=== PATIENT | female | born 1960 | race Caucasian/White ===

== ENCOUNTER → 2016-07-14 14:18 | Outpatient (CLI) | payer MEDICAID ==
[2016-04-20 17:52] VITALS: BMI 40.0
[~2016-07-14 14:18] MED LIST: ALDACTONE50 MG PO; ANORO ELLIPTA1 EACH INH; ATIVAN0.5 MG PO; BAYER CHEWABLE81 MG PO; CELEXA40 MG PO; DEMADEX20 MG PO; ESTRACE2 MG PO; FUROSEMIDE40 MG PO; ISOSORBIDE MONO30 M1 PO; K-DUR20 MEQ PO; LEVAQUIN500 MG PO; METOPROLOL TART50 MG PO; NIFEDIPINE ER60 MG PO; OXYCODONE HCL5 MG PO; PLAVIX75 MG PO; PRILOSEC20 MG PO; REXULTI1 MG PO; SEROQUEL200 MG PO; STERAPRED DS 1010 MG PO; SYMBICORT 16010.2 GM INH; TRAZODONE HCL50 MG PO; TYLENOL #4 W/CO1 TAB PO; VENTOLIN HFA18 GM INH; ZANAFLEX2 M1 PO
[2016-07-14 14:56] LABS: BASOPHILS 0.3 % (0.0-2.0); EOSINOPHILS 2.9 % (0-7); HEMATOCRIT 44.8 % (36.0-48.0); HEMOGLOBIN 14.5 g/dL (12-16); IMMATURE GRANULOCYTES 0.5 % (0-5); LYMPHOCYTES 31.2 % (15-50); MCHC 32.4 g/dL (31.0-37.0); MCV 83.4 fL (80.0-100.0); MEAN PLATELET VOLUME 9.7 fL (7.4-10.4); MONOCYTES 7.8 % (2-11); NEUTROPHILS 57.3 % (40-80); PLATELET COUNT 212 10x3/uL (130-400); RBC 5.37 10x6/uL (4.00-5.40); RDW 14.6 % (11.5-14.5); WBC 10.7 10x3/uL (4.8-10.8)
[2016-07-14 15:35] LABS: ALBUMIN 3.7 g/dL (3.4-5.0); BILIRUBIN - DIRECT 0.16 mg/dL (0.00-0.30); BILIRUBIN - INDIRECT 0.28 mg/dL (0.00-1.00); BILIRUBIN - TOTAL 0.44 mg/dL (0.2-1.3); CALCIUM 9.3 mg/dL (8.5-10.1); CARBON DIOXIDE 27.1 mmol/L (21.0-32.0); CREATININE - SERUM 0.9 mg/dL (0.6-1.3); POTASSIUM - SERUM 4.1 mmol/L (3.5-5.1); PROTEIN - SERUM 6.8 g/dL (6.4-8.2)
== END | disposition home or self-care (01) ==
LOC: D.LAB 14:18 → D.CT 15:00
PROVIDERS: Surgery
DX: R92.8 Other abnormal and inconclusive findings on diagnostic imaging of breast (principal)

== ENCOUNTER 2016-07-16 05:19 | Day surgery (SDC) | payer MEDICAID ==
[2016-07-15 10:47] LABS: INR 1.01 (0.85-1.17); PROTIME 13.1 SECONDS (11.6-15.0)
[2016-07-15 10:48] LABS: APTT 30.5 SECONDS (22.8-39.4)
[2016-07-15 11:18] LABS: APPEARANCE HAZY (CLEAR); BACTERIA MODERATE /hpf (NONE SEEN); BILIRUBIN NEGATIVE (NEGATIVE); COLOR YELLOW (YELLOW); GLUCOSE NEGATIVE (NEGATIVE); KETONE NEGATIVE (NEGATIVE); LEUKOCYTE ESTERASE TRACE (NEGATIVE); MUCUS <1+ /lpf (NONE SEEN); NITRITE NEGATIVE (NEGATIVE); PROTEIN NEGATIVE (NEGATIVE); WHITE CELLS - URINE 0-5 /hpf (0-5)
[~2016-07-16] VITALS: Ht 157.5 cm; Wt 104.3 kg
[~2016-07-16 05:19] MED LIST changes: -TRAZODONE HCL50 MG PO
[2016-07-16] MEDS ORDERED: TRAZODONE HCL50 MG PO (06:57)
[2016-07-16 07:29] VITALS: BP 154/88; Ht 157.5 cm; Wt 104.3 kg
[2016-07-16] MEDS ORDERED: OXYCODONE HCL5 MG PO (15:03)
--- NOTE | 2016-07-16 16:22 | OP ---
PATIENT NAME: ADONIS YEE MEDICAL RECORD: [id number] :60 LOCATION:D.[facility] ADMISSION DATE: SURGEON: YARELI GARCIA MD DATE OF OPERATION: 07/16/2016 SURGEON: Yareli Garcia MD PREOPERATIVE DIAGNOSIS: A 4 x 3 cm right breast mass. POSTOPERATIVE DIAGNOSIS: A 4 x 3 cm right breast mass. PROCEDURE PERFORMED: Right breast lumpectomy with sentinel lymph node biopsy. ANESTHESIA: General. COMPLICATIONS: None. SPECIMENS: 1. ____ cm right breast mass. 2. Right axillary sentinel lymph node times 2. ESTIMATED BLOOD LOSS: 50 cc. OPERATIVE COURSE: After consent was obtained, the patient was taken to the operating room and placed in the supine position on the operating table. Next, general anesthesia was given via endotracheal intubation after a timeout was taken to confirm the correct patient and procedure. The right chest and axilla were prepped and draped in typical sterile fashion. There is a large, hard, fixed, palpable breast mass in the right breast, Lymphazurin blue dye was administered subareolar. Local anesthetic was injected in the right upper outer quadrant of the breast. An elliptical incision was made approximately 5 cm in length, 0.5 cm in width. The mass was easily palpated. It was held firmly in place. Dissection continued with a combination of electrocautery and sharp scissor dissection. The mass was circumferentially dissected. The specimen was removed from the breast, it was marked for orientation. The skin joanie superior, the long stitch lateral and short stitch medial. The specimen was sent for permanent pathology. The wound was copiously irrigated and suctioned. Careful attention was paid to hemostasis, which was obtained with electrocautery. When the wound bed was clean and dry, it was closed in 3 layers. The deep subcutaneous layer was closed with 2-0 Vicryl, superficial subcutaneous layer 3-0 Vicryl, and skin with 4-0 Monocryl, Mastisol and Steri-Strips. Next, the axillary borders were identified. Local anesthetic was injected into an axillary crease. Incision was made with 15 blade scalpel. Dissection continued with sharp dissection. The Jaden counter was used. The patient have received preoperative lymphoscintigraphy. The hot node was identified. It was also noted to be bright blue with dye. It registered 1300 on the [place] counter. It was circumferentially dissected. The nodes were sent for permanent pathology. The wound was irrigated and suctioned. Hemostasis was obtained with electrocautery. The wound was closed again in 3 layers, deep layer with 2-0 Vicryl, superficial layer with 3-0 Vicryl. The skin was closed with 4-0 Stratafix, Mastisol and Steri-Strips. At the end of the case, all needle and instrument counts were correct. No complications occurred. Pressure dressing was applied with an Dewey wrap. At the end of the case, all needle counts were correct. The patient was transported to the PACU in stable condition. OPERATIVE REPORT [id number] ADONIS YEE TRANSINT:[id number] Voice Confirmation ID: [id number] DOCUMENT ID: [id number] YARELI GARCIA MD at 1622 CC: [id number] DICTATION DATE: 07/16/16 1501 SEPTIC TANK INSTALLER: 07/16/16 1527 [id number] [place] [address]
--- NOTE | 2016-07-16 17:05 | NUR ---
DISCHARGE INSTRUCTIONS AND RX GIVEN, VOICED UNDERSTANDING. DISCHARGED HOME VIA WC.
== END 2016-07-16 17:05 | disposition home or self-care (01) ==
LOC: D.OPS 05:19 → D.NM 07:00 → D.OPS 08:00 → D.NM 08:00 → D.PAN 08:00 → D.OPS 17:05
PROVIDERS: Anesthesiology
DX: N64.1 Fat necrosis of breast (principal); N60.91 Unspecified benign mammary dysplasia of right breast; N60.31 Fibrosclerosis of right breast

== ENCOUNTER 2016-07-16 22:25 | Emergency (ER) | payer MEDICAID ==
[2016-07-16 07:29] VITALS: BMI 18.1
[~2016-07-16 22:25] MED LIST changes: +TRAZODONE HCL50 MG PO
[2016-07-17 00:51] LABS: HEMATOCRIT 39.5 % (36.0-48.0); LYMPHOCYTES 11.7 % (15-50); MCH 26.8 pg (26.0-34.0); MCHC 32.9 g/dL (31.0-37.0); MCV 81.4 fL (80.0-100.0); MEAN PLATELET VOLUME 9.4 fL (7.4-10.4); NEUTROPHILS 83.8 % (40-80); PLATELET COUNT 240 10x3/uL (130-400); RBC 4.85 10x6/uL (4.00-5.40); RDW 14.5 % (11.5-14.5); WBC 11.7 10x3/uL (4.8-10.8)
[2016-07-17 01:13] LABS: ALBUMIN 3.2 g/dL (3.4-5.0); ANION GAP 14.4 mmol/L (8-16); BILIRUBIN - TOTAL 0.33 mg/dL (0.2-1.3); CALCIUM 8.8 mg/dL (8.5-10.1); CARBON DIOXIDE 25.7 mmol/L (21.0-32.0); POTASSIUM - SERUM 4.1 mmol/L (3.5-5.1); PROTEIN - SERUM 6.5 g/dL (6.4-8.2); TROPONIN-I 0.018 ng/mL (0.000-0.060)
== END 2016-07-17 01:33 | disposition home or self-care (01) ==
LOC: D.ER 22:25
PROVIDERS: Family Medicine
DX: I10 Essential (primary) hypertension (principal); I50.9 Heart failure, unspecified; M79.7 Fibromyalgia; J44.9 Chronic obstructive pulmonary disease, unspecified; M32.9 Systemic lupus erythematosus, unspecified

== ENCOUNTER → 2016-12-10 12:03 | Outpatient (CLI) | payer MEDICAID ==
[~2016-12-10] VITALS: Ht 157.5 cm; Wt 109.1 kg
--- NOTE | ~2016-12-10 | HEMODYNAMI ---
PATIENT:ADONIS YEE MEDICAL RECORD: [id number] : 60 LOCATION:[facility] ADMISSION DATE: 12/10/16 Generatedon:12/10/201616:41 Patient name: ADONIS YEE Patient #: [id number] : 1960 Date of study: 12/10/2016 Page: Of Hemodynamic Procedure Report Patient Data Patient Demographics Procedure consent was obtained First Name: ADONIS Gender: Female Last Name: JOSELITO : 1960 Middle Initial: CORINA Age: 56 year(s) Patient #: [id number] Race: SSN: [id number] Additional ID: [id number] Contact details [address]: [address] [place] [address] State: [place] City: [place] Zip code: [address] Past Medical History Allergies Allergen Reaction Date Comments Reported Other allergy 11/22/2015 Red Dye in [place] Admission Admission Data Admission Date: 12/10/2016 Admission Time: 12:03 Arrival Date: 12/10/2016 Arrival Time: 14:15 Admit Source: Other Insurance Payor: Medicaid Height (in.): 62 BSA: 2.07 (m2) Height (cm.): 157.48 BMI: 43.9 (kg/m2) Weight (lbs.): 240 Weight (kg.): 108.86 Lab Results Lab Result Date: 12/10/2016 Lab Result Time: 0:00 Biochemistry Name Units Result Min Max BUN mg/dl 15 --(--*-)-- 7 18 Creatinine mg/dl 1.1 --(--*-)-- 0.6 1.3 CBC Name Units Result Min Max Hemoglobin g/dl 16.4 --(--*-)-- 13.5 17.5 Procedure Procedure Types Cath Procedure Diagnostic Procedure LHC LHC w/Coronaries Miscellaneous Procedures Moderate Sedation up to 30 minutes Procedure Description Procedure Date Procedure Date: 12/10/2016 Procedure Start Time: 16:27 Procedure End Time: 16:38 Procedure Staff Name Function Dalton Beck MD Performing Physician Lilibeth Slade RT Scrub Brissa Salmeron RN Nurse Heidi Oseguera RT Monitor Indication Angina Procedure Data Cath Procedure Fluoroscopy Diagnostic fluoroscopy Total fluoroscopy Time: 3.4 time: 3.4 min min Diagnostic fluoroscopy Total fluoroscopy dose: 719 dose: 719 mGy mGy Contrast Material Contrast Material Type Amount (ml) Isovue 300 57 Entry Location Entry Primary Successful Side Size Upsize Upsize Entry Closure Succes sful Closure Location (Fr) 1 (Fr) 2 (Fr) Remarks Device Remarks Femoral Right 5 Fr Exoseal artery Estimated blood loss: 5 ml Diagnostic catheters Device Type Used For End Catheter Placement Cordis 5Fr JL 4.0 Left Coronary Catheter (MP) Angiography Cordis 5Fr 3DRC Catheter Right Coronary (MP) Angiography Cordis 5Fr Pigtail LV Angiography Catheter (MP) Procedure Complications No complications Procedure Medications Medication Administration Route Dosage Oxygen NC 4 l/min Lidocaine 2% added to field 20 Heparin Flush Bag added to field 2 bags (1000units/500ml NS) 0.9% NaCl I.V. 100 ml/hr Versed I.V. 2 mg Fentanyl I.V. 100 mcg Versed I.V. 1 mg Fentanyl I.V. 50 mcg Versed I.V. 1 mg Fentanyl I.V. 50 mcg Hemodynamics Rest BSA: 2.07 (m2) HGB: 16.4 (g/dl) O2 Consumption: Estimated: 188.48 (ml/min) O2 Co nsumption indexed: Estimated:91.05 (ml/min/m) Heart Rate: 57 (bpm) Pressure Samples Time Site Value (mmHg) Purpose Heart Use Rate(bpm) 16:35 LV 147/-3,3 Snapshot 69 16:36 AO 155/80(112) Pullback 70 16:36 LV 126/13,10 Pullback 70 Gradients Valve Time Site 1 Site 2 Mean SEP/DFP Peak To Heart Use (mmHg) (sec/min) Peak Rate (mmHg) (bpm) Aortic 16:36 LV AO 0 9 0 70 126/13,10 155/80(112) Calculations Valve P-P Mean Valve Index Valve Source Name Gradient Area Flow (cm2) Aortic 0 0 0 0 Snapshots Pre Cath Intra NCS Post Cath Vital Signs Time Heart Resp SPO2 NIBP (mmHg) Rhythm Pain Sedation Rate (ipm) (%) Status Level (bpm) 16:18:40 54 17 93 163/93(119) NSR 0 (11) 10(A) , No pain 16:23:05 60 15 92 151/87(113) NSR 0 (11) 10(A) , No pain 16:27:21 63 19 93 139/87(126) NSR 0 (11) 10(A) , No pain 16:31:37 64 17 93 145/94(129) NSR 0 (11) 10(A) , No pain 16:35:59 69 17 93 145/92(114) NSR 0 (11) 10(A) , No pain Medications Time Medication Route Dose Verified Delivered Reason Notes Effe ctiveness by by 16:18:24 Oxygen NC 4 Dalton Buffie used for l/min [facility] Salmeron company driver 16:18:32 Lidocaine 2% added 20ml Dalton Dalton for local to vial [facility] anesthetic field MD KAUFFMAN 16:18:38 Heparin Flush added 2 Dalton Dalton used for Bag to bags [facility] procedure (1000units/500ml field MD KAUFFMAN NS) 16:18:50 0.9% NaCl I.V. 100 Dalton Buffie Per ml/hr [facility] Manolo Salmeron RN physician 16:22:34 Versed I.V. 2 mg Dalton Buffie for [facility] Manolo Salmeron RN sedation 16:22:40 Fentanyl I.V. 100 Dalton Buff[address] for mcg [facility] Manolo Salmeron RN sedation 16:26:12 Versed I.V. 1 mg Dalton Buffie for [facility] Manolo Salmeron RN sedation 16:26:16 Fentanyl I.V. 50 Dalton Marieie for mcg [facility] Manolo Salmeron RN sedation 16:29:56 Versed I.V. 1 mg Dalton Cynthiaie for [facility] Manolo Salmeron RN sedation 16:29:59 Fentanyl I.V. 50 Dalton Buff[address] for mcg [facility] Manolo Salmeron RN sedation Procedure Log Time Note 16:06:04 Informed consent obtained and on chart 16:06:11 Diagnostic Cath Status : Elective 16:07:00 Indication : Angina 16:07:52 Brissa Salmeron RN sent for patient. Start room use. 16:07:53 Time tracking: Regular hours 16:07:57 Plan of Care:Hemodynamics will remain stable., Cardiac rhythm will remain stable., Comfort level will be maintained., Respiratory function will remain adequate., Patient/ family verbilizes understanding of procedure., Procedure tolerated without complication., Recovers from procedure without complications.. 16:10:01 Patient received from Pre/Post Procedure Room to CCL 2 Alert and oriented. Tansferred to table in Supine position. 16:10:02 Warm blankets applied, and kallie hugger turned on for patient comfort. 16:10:04 Correct patient and procedure confirmed by team. 16:10:22 H&P Date Dictated: 12/08/2016 Within 30 days and on chart., H&P Addendum completed by physician on day of procedure. (MUST COMPLETE FOR ALL OUTPATIENTS). 16:10:24 Pre-procedure instructions explained to patient. 16:10:31 Family in waiting room. 16:10:32 Patient NPO since Midnight. 16:10:36 Is the patient allergic to Iodine/contrast media? No. 16:12:15 ECG and BP/O2 sat monitors applied to patient. 16:17:19 Vital chart was started 16:17:20 Baseline sample Acquired. 16:17:26 Rhythm: sinus rhythm 16:17:27 Full Disclosure recording started 16:17:28 Pre-op teaching completed and patient verbalized understanding. 16:18:11 Was the patient premedicated? No 16:18:14 Is patient on blood thinner?Yes 16:18:16 ACC The patient was administered the following blood thiners within the last 24 hours: ACCPlavix 16:18:19 Patient diabetic? No. 16:18:22 Previous problem with sedation/anesthesia? No ? 16:18:24 Oxygen 4 l/min NC was administered by Brissa Salmeron RN; used for procedure; 16:18:25 Snore? No 16:18:26 Sleep apnea? No 16:18:27 Deviated septum? No 16:18:28 Opens mouth fully? Yes 16:18:29 Sticks out tongue? Yes 16:18:32 Lidocaine 2% 20ml vial added to field was administered by Dalton Beck MD; for local anesthetic; 16:18:33 Airway obstruction? Yes copd 16:18:38 Heparin Flush Bag (1000units/500ml NS) 2 bags added to field was administered by Dalton Beck MD; used for procedure; 16:18:38 Dentures? Yes in tight 16:18:41 Pre procedure: right dorsailis pedis pulse 1+ Palpable, but thready & weak; easily obliterated 16:18:44 Patient pain scale 0/10 ?. 16:18:50 0.9% NaCl 100 ml/hr I.V. was administered by Brissa Salmeron RN; Per physician; 16:18:57 IV patent on arrival in left forearm with 0.9% NaCl at [facility]. 16:21:18 Lab Result : BUN 15 mg/dl 16:21:18 Lab Result : Creatinine 1.1 mg/dl 16:21:18 Lab Result : Hemoglobin 16.4 g/dl 16:21:41 Lab results completed and on chart. 16:21:44 Right groin area was prepped with chlora-prep and draped in sterile fashion 16:21:45 Alarms reviewed by R. N. 16:21:46 Sharps counted by scrub and verified by R.N. 16:21:47 --------ALL STOP TIME OUT------ 16:21:48 Final Timeout: patient, procedure, and site verified with staff and physician. All members of the team are in agreement. 16:21:50 Right groin site verified by team. 16:21:53 Physical assessment completed. ASA score P 2 - A patient with mild systemic disease as per Dalton Beck MD. 16:21:56 Sedation plan: IV Moderate Sedation Versed, Fentanyl 16:22:02 Use device set Femoral Dx 16:22:03 Acist Syringe opened to sterile field. 16:22:04 Bag Decanter opened to sterile field. 16:22:04 Medline Cath Pack opened to sterile field. 16:22:05 Terumo 5Fr [place] Sheath opened to sterile field. 16:22:05 St [place] Francisco 260cm J .035 wire opened to sterile field. 16:22:06 Acist Hand Control opened to sterile field. 16:22:07 Acist Manifold opened to sterile field. 16:22:07 Diagnostic Infinity 5Fr Multipack catheter opened to sterile field. 16:22:08 Tegaderm 4 x 4 opened to sterile field. 16:22:34 Versed 2 mg I.V. was administered by Buffie Salmeron RN; for sedation; 16:22:40 Fentanyl 100 mcg I.V. was administered by Brissa Salmeron RN; for sedation; 16:26:12 Versed 1 mg I.V. was administered by Brissa Salmeron RN; for sedation; 16:26:16 Fentanyl 50 mcg I.V. was administered by Brissa Salmeron RN; for sedation; 16:27:06 Procedure started. 16:27:32 Local anesthetic to right femoral artery with Lidocaine 2% by Dalton Beck MD.INITIAL ACCESS ONLY 16:27:42 A 5 Fr sheath was inserted into the Right Femoral artery 16:27:50 A Cordis 5Fr JL 4.0 Catheter (MP) was advanced over the wire and used for Left Coronary Angiography. 16:29:37 LCA angiography performed. 16:29:41 Injector settings: Ml/sec: 3, Volume: 6, 16:29:56 Versed 1 mg I.V. was administered by Brissa Salmeron RN; for sedation; 16:29:59 Fentanyl 50 mcg I.V. was administered by Brissa Salmeron RN; for sedation; 16:30:54 Catheter removed. 16:31:00 A Cordis 5Fr 3DRC Catheter (MP) was advanced over the wire and used for Right Coronary Angiography. 16:32:24 RCA angiography performed. 16:32:28 Injector settings: Ml/sec: 3, Volume: 6, 16:32:53 Terumo ANGLE 260cm glide wire opened to sterile field. 16:33:19 Catheter removed. 16:33:24 A Cordis 5Fr Pigtail Catheter (MP) was advanced over the wire and used for LV Angiography. 16:35:35 LV hemodynamics recorded. 16:35:36 LV gram done using CONNOLLY 16:35:39 Injector settings: Ml/sec: 5, Volume: 15, 16:36:02 EF : 55 % 16:36:04 Catheter removed. 16:36:26 Cordis 5Fr Exoseal opened to sterile field. 16:36:38 Sheath removed intact; hemostasis achieved with Exoseal to the Right Femoral artery. 16:36:41 Procedure ended.(Physican Out) 16:37:37 Fluoroscopy time 03.40 minutes. 16:37:50 Fluoroscopy dose: 719 mGy 16:37:50 Flurop Dose total: 719 16:37:55 Contrast amount:Isovue 300 57ml. 16:37:57 Sharps counted by scrub and verified by R.N. 16:37:58 Insertion/operative site no bleeding no hematoma. 16:38:01 Post-op/insertion site Right Femoral artery dressed using a 4 x 4 and Tegaderm. 16:38:03 Post right femoral artery:stable 16:38:05 Post Procedure Pulses reassessed and unchanged 16:38:07 Post procedure rhythm: unchanged. 16:38:10 Estimated blood loss: 5 ml 16:38:12 Post procedure instruction explained to patient.Patient verbalizes understanding. 16:38:13 Patient needs reinforcement of post procedure teaching. 16:38:26 Procedure type changed to Cath procedure, Diagnostic procedure, LHC, LHC w/Coronaries, Miscellaneous Procedures, Moderate Sedation up to 30 minutes 16:38:28 Procedure and supply charges have been captured, reviewed, submitted and are correct. 16:38:31 Procedure Complication : No complications 16:38:33 Vital chart was stopped 16:38:34 See physician's report for complete and final results. 16:38:36 Report given to Pre/Post Procedure Room. 16:38:39 Patient transfered to Pre/Post Procedure Room with Stretcher. 16:38:41 Procedure ended. 16:38:41 Full Disclosure recording stopped 16:38:48 End room use (Document Last) 16:39:20 Admit Source: Other 16:39:25 Arrival Date: 12/10/2016 2:15:00 PM 16:39:31 Insurance Payor : Medicaid 16:39:37 Patient Height : 157.48 cm 16:39:43 Patient Weight : 108.86 kg Device Usage Item Name Manufacture Quantity Catalog Hospital Part Current Minimal Lo t# / Number Charge Number Stock Stock Serial# Code Acist Acist 1 40341 118841 890930 488686 20 Syringe Medical Systems Inc Bag Microtek 1 2002S 337328 18780 276713 5 Dec[employer] Medical Inc. Medline Cardinal 1 [id number] 03268 988878 5 Cath Pack AD[employer] Terumo 5Fr Terumo 1 [id number] 487484 472187 051519 [address] Juan Francisco 1 055707 341376 244630 693371 30 260cm J .035 wire Acist Hand Acist 1 91757 889221 287024 944556 5 Control Medical Systems Inc Acist Acist 1 42141 634921 276215 171755 5 Manifold Medical Systems Inc Diagnostic Cardinal 1 PH1676 510004 94559 005806 30 Infinity Health 5Fr Multipack catheter Tegaderm 4 3M 1 1626W 005720 507880 840015 5 x 4 Cordis 5Fr Cardinal 1 336968 5 JL 4.0 Health Catheter (MP) Cordis 5Fr Cardinal 1 151394 5 3DRC Health Catheter (MP) Terumo Terumo 1 [id number] 802764 645182 472856 5 ANGLE 260cm glide wire Cordis 5Fr Cardinal 1 809180 5 Pigtail Health Catheter (MP) Cordis 5Fr Cardinal 1 EX500 972796 784928 766521 10 Lendstar Signature Audit [place] Stage Time Signature Unsigned Intra-Procedure 12/10/2016 Heidi Oseguera 4:41:18 PM RT(R) Signatures Monitor : Heidi Oseguera RT Signature : Date : Time : [id number] [place] [address]
[~2016-12-10 12:03] MED LIST changes: +EDARBI40 MG PO
[2016-12-10 12:27] VITALS: BP 142/78; Ht 157.5 cm; Wt 109.1 kg
[2016-12-10 12:33] LABS: BASOPHILS 0.3 % (0-2); EOSINOPHILS 1.7 % (0-7); HEMATOCRIT 49.6 % (36.0-48.0); HEMOGLOBIN 16.4 g/dL (12-16); IMMATURE GRANULOCYTES 1.1 % (0-5); LYMPHOCYTES 17.7 % (15-50); MCH 27.9 pg (26.0-34.0); MCHC 33.1 g/dL (31.0-37.0); MCV 84.5 fL (80.0-100.0); MEAN PLATELET VOLUME 9.6 fL (7.4-10.4); MONOCYTES 7.6 % (2-11); NEUTROPHILS 71.6 % (40-80); PLATELET COUNT 216 10x3/uL (130-400); RBC 5.87 10x6/uL (4.00-5.40); RDW 14.5 % (11.5-14.5); WBC 11.8 10x3/uL (4.8-10.8)
[2016-12-10 12:45] LABS: ANION GAP 17.2 mmol/L (8-16); CALCIUM 9.1 mg/dL (8.5-10.1); CARBON DIOXIDE 23.2 mmol/L (21.0-32.0); CREATININE - SERUM 1.1 mg/dL (0.6-1.3); POTASSIUM - SERUM 3.4 mmol/L (3.5-5.1)
--- NOTE | 2016-12-12 12:53 | OP ---
PATIENT NAME: ADONIS YEE MEDICAL RECORD: [id number] :60 LOCATION:D[facility] ADMISSION DATE: SURGEON: ARTEM CENTENO MD DATE OF OPERATION: 12/10/2016 PROCEDURE: Left heart catheterization, selective coronary angiography, right femoral approach. CATHETERS: A 5-Ethiopian sheath, 5/4 left and right Radha, 5/4 pig. The procedure was well tolerated. The patient returned to olmos. Sheath removed. ExoSeal device placed. FINDINGS: Left ventriculography in 30-degree CONNOLLY view, normal wall motion and normal systolic function. CORONARY ANATOMY: Left main: Left main is free of disease. LAD: LAD is free of disease in the diagonal system with no evidence of restenosis. No progression of [place] disease. CIRCUMFLEX: Right coronary previous stenting is widely patent. No progression of [place] disease. IMPRESSION: No evidence of restenosis. No evidence of progression of [place] disease. Normal LV function. TRANSINT:[id number] Voice Confirmation ID: [id number] DOCUMENT ID: [id number] ARTEM CENTENO MD at 1253 CC: [id number] DICTATION DATE: 12/10/16 1642 AIRCRAFT MACHINIST HELPER: 12/11/16 0235 [facility] CLI 12/10/16 [id number] [place] [address]
== END | disposition home or self-care (01) ==
LOC: D.CATH 12:03
PROVIDERS: Internal Medicine Interventional Cardiology
DX: I25.119 Atherosclerotic heart disease of native coronary artery with unspecified angina pectoris (principal); Z01.812 Encounter for preprocedural laboratory examination; Z95.5 Presence of coronary angioplasty implant and graft

== ENCOUNTER 2017-01-27 10:59 | Emergency (ER) | payer MEDICAID ==
[2016-12-10 12:27] VITALS: BMI 44.0
[2017-01-27 12:09] LABS: BASOPHILS 0.2 % (0-2); EOSINOPHILS 2.3 % (0-7); HEMOGLOBIN 14.9 g/dL (12-16); IMMATURE GRANULOCYTES 0.3 % (0-5); LYMPHOCYTES 21.5 % (15-50); MCH 27.9 pg (26.0-34.0); MCHC 33.1 g/dL (31.0-37.0); MCV 84.3 fL (80.0-100.0); MEAN PLATELET VOLUME 10.1 fL (7.4-10.4); MONOCYTES 11.3 % (2-11); NEUTROPHILS 64.4 % (40-80); PLATELET COUNT 178 10x3/uL (130-400); RBC 5.34 10x6/uL (4.00-5.40); RDW 13.6 % (11.5-14.5); WBC 10.1 10x3/uL (4.8-10.8)
[2017-01-27 12:24] LABS: ALBUMIN 3.5 g/dL (3.4-5.0); ALKALINE PHOSPHATASE 102 U/L (46-116); ALT (SGPT) 39 U/L (10-68); BILIRUBIN - TOTAL 0.64 mg/dL (0.2-1.3); CALC OSMOLALITY 277 mosm/kg (275-300); CALCIUM 8.8 mg/dL (8.5-10.1); CARBON DIOXIDE 27.6 mmol/L (21.0-32.0); CHLORIDE - SERUM 104 mmol/L (98-107); CREATININE - SERUM 0.8 mg/dL (0.6-1.3); GLUCOSE 95 mg/dL (74-106); POTASSIUM - SERUM 3.5 mmol/L (3.5-5.1); PROTEIN - SERUM 6.8 g/dL (6.4-8.2); SODIUM 140 mmol/L (136-145); UREA NITROGEN 11 mg/dL (7-18); eGFR NON AFRICAN AMERICAN 78 mL/min (90-120)
[2017-01-27 12:48] LABS: APPEARANCE CLEAR (CLEAR); BILIRUBIN NEGATIVE (NEGATIVE); COLOR YELLOW (YELLOW); GLUCOSE NEGATIVE (NEGATIVE); KETONE NEGATIVE (NEGATIVE); LEUKOCYTE ESTERASE NEGATIVE (NEGATIVE); NITRITE NEGATIVE (NEGATIVE); PROTEIN NEGATIVE (NEGATIVE); SPECIFIC GRAVITY 1.005 (1.005-1.020); UROBILINOGEN NORMAL (NORMAL)
== END 2017-01-27 13:10 | disposition home or self-care (01) ==
LOC: D.ER 10:59
PROVIDERS: Nurse Practitioner Family
DX: J44.1 Chronic obstructive pulmonary disease with (acute) exacerbation (principal); I50.9 Heart failure, unspecified; I10 Essential (primary) hypertension; M32.9 Systemic lupus erythematosus, unspecified; F17.200 Nicotine dependence, unspecified, uncomplicated; R07.9 Chest pain, unspecified; R06.00 Dyspnea, unspecified; R09.82 Postnasal drip; R09.89 Other specified symptoms and signs involving the circulatory and respiratory systems; R05 Cough

== ENCOUNTER 2017-02-18 15:52 | Inpatient (IN) | payer MEDICAID ==
[~2017-02-18] VITALS: Ht 157.5 cm; Wt 104.3 kg
--- NOTE | ~2017-02-18 | CN ---
PATIENT NAME:ADONIS DAVISON MEDICAL RECORD: [id number] : 60 LOCATION:[facility] ADMIT DATE: 02/18/17 ACCOUNT: [id number] CONSULTING PHYSICIAN: LACY GARNER MD REFERRING PHYSICIAN: LEE ANN BESS MD DATE OF CONSULTATION: 02/19/2017 CONSULT REQUESTING PHYSICIAN: Milton Blanchard MD REASON FOR CONSULTATION: Pneumonia, dyspnea. HISTORY OF PRESENT ILLNESS: Ms. Davison is a 56-year-old female who has a history of COPD followed by Dr. Gay. According to the patient, in December she had a pneumonia. She was given a course of antibiotic, but the patient never got better. She was coughing. She was in shortness of breath. The patient came in to the ER and upon evaluation, she was found that she has questionable pulmonary edema. She is also having leukocytosis. REVIEW OF SYSTEMS: Mainly in the history of present illness. PAST MEDICAL HISTORY: 1. COPD. 2. Ex-smoker. 3. Coronary artery disease. 4. History of questionable congestive heart failure. PAST SURGICAL HISTORY: She has a cardiac catheterization in the past. ALLERGIES: There are no known drug allergies. MEDICATIONS: On FiREapps was reviewed. PERSONAL AND SOCIAL HISTORY: The patient was a smoker. She quit it more than a year ago. She is a nondrinker. FAMILY HISTORY: Noncontributory. PHYSICAL EXAMINATION: GENERAL: Now, the patient is lying comfortably. She is not in acute distress. She is wearing nasal cannula oxygen. VITAL SIGNS: The blood pressure is 108/57, pulse is 73, respiration 18, temperature is 98, SpO2 93% on 2 liters. HEENT: Conjunctivae pink, sclerae nonicteric. NECK: Supple, no JVD. CHEST: Excursion is minimal. No murmur or wheezing on forceful expiration. HEART: Rhythm regular, normal sound, no murmur. ABDOMEN: Soft. Bowel sounds present. No hepatosplenomegaly. RECTAL: Deferred. EXTREMITIES: No cyanosis, no clubbing, no pedal edema. SKIN: Warm, normal turgor. CENTRAL NERVOUS SYSTEM: The patient is awake and alert. There is no obvious cranial nerve abnormality. The gait was not tested. LABORATORY DATA: CBC: WBC 12.5, hemoglobin 14.5, hematocrit 44.4, the platelet count 182. Chemistry: Sodium 139, potassium 3.6, BUN is 9, creatinine 1.2. CONSULT REPORT [id number] ADONIS DAVISON IMAGING: Chest radiograph: There is increased interstitial marking. There is no consolidation as such. IMPRESSION: 1. Acute hypoxic respiratory failure. 2. Acute exacerbation of chronic obstructive pulmonary disease. 3. Possible bilateral pneumonitis, bacterial versus viral. 4. Acute cough. 5. Abnormal chest radiograph, possible pulmonary fibrosis, possible pulmonary edema. 6. Gastroesophageal reflux disease. 7. Ex-smoker. 8. Leukocytosis. RECOMMENDATION: 1. We will continue methylprednisolone IV, albuterol, ipratropium nebulizer, add Brovana and budesonide nebulizer. 2. Continue Levaquin and Rocephin. 3. Check the CT scan of the chest with high resolution. 4. Check VILLA. Check rheumatoid factor. Check the BNP. Dr. Blanchard thank you for involving me in the care of Ms. Davison. TRANSINT:[id number] Voice Confirmation ID: [id number] DOCUMENT ID: [id number] LACY GARNER MD CC: [id number] DICTATION DATE: 02/19/17 1523 SUPERVISOR IN CHARGE: 02/19/17 2232 ADM IN [facility] [address] [place] [address]
--- NOTE | 2017-02-18 16:11 | NUR ---
RECEIVED TO ROOM 2227 FROM MD OFFICE. ORIENTED TO ROOM AND CALL LIGHT SYSTEM. CALL LIGHT IN REACH.
[2017-02-18 16:12] VITALS: BP 166/84; BMI 42.1
--- NOTE | 2017-02-18 16:56 | NUR ---
IV SITED TO RIGHT WRIST WITH 22 GA X1 STICK. LAB IN ROOM TO DRAW BLOOD.
[2017-02-18 17:04] LABS: HEMATOCRIT 45.3 % (36.0-48.0); HEMOGLOBIN 14.6 g/dL (12-16); MCH 27.7 pg (26.0-34.0); MCHC 32.2 g/dL (31.0-37.0); MEAN PLATELET VOLUME 9.8 fL (7.4-10.4); PLATELET COUNT 191 10x3/uL (130-400); RBC 5.27 10x6/uL (4.00-5.40); RDW 13.8 % (11.5-14.5); WBC 11.4 10x3/uL (4.8-10.8)
[2017-02-18 17:15] VITALS: BP 120/77
--- NOTE | 2017-02-18 17:18 | NUR ---
MEDS ADMINISTERED PER ORDER. ATIVAN 1 GM PO PER ANIXETY. SCDs TO BLE. [place] HAT IN BR. HISTORY, MED REC, AND PASSWORD OBTAINED. CALL LIGHT IN REACH. WILL CONTINUE WITH PLAN OF CARE.
[2017-02-18] MEDS ORDERED: AMBIEN10 MG PO (17:20)
[2017-02-18 17:34] LABS: ALBUMIN 3.6 g/dL (3.4-5.0); ANION GAP 13.6 mmol/L (8-16); BILIRUBIN - TOTAL 0.55 mg/dL (0.2-1.3); CARBON DIOXIDE 26.3 mmol/L (21.0-32.0); CREATININE - SERUM 0.9 mg/dL (0.6-1.3); POTASSIUM - SERUM 3.9 mmol/L (3.5-5.1); PROTEIN - SERUM 6.7 g/dL (6.4-8.2)
--- NOTE | 2017-02-18 18:41 | NUR ---
NO CHANGES IN INITIAL ASSESSMENT. CALL LIGHT IN REACH. SCDs TO BLE. FAMILY IN ROOM. WILL CONTINUE WITH PLAN OF CARE.
[2017-02-18 19:00] VITALS: BP 152/71
[2017-02-18 19:15] LABS: LYMPHOCYTES 6 % (15-50); MONOCYTES 1 % (2-11); NEUTROPHILS 93 % (40-80); PLATELET ESTIMATE NORMAL
--- NOTE | 2017-02-18 19:45 | NUR ---
ASSESSMENT PER FLOW SHEET.PT WITHOUT DISTRESS.BITED NOTED TO ABD AND SHALINI AREA. PT STATES MISQITO BITES. ALSO HAS BRUISES TO BILATERAL LOWER LEGS,BUT LEFT BEING WORSE.INSTRUTED TO CALL FOR NEEDS.CALL LIGHT IN REACH
[2017-02-19] VITALS (7 sets, daily range): BP systolic 108–152; BP diastolic 57–73; Ht 157.5 cm; Wt 104.3 kg
--- NOTE | 2017-02-19 07:10 | NUR ---
PATIENT RECEIVED IN RIGHT LATERAL POSITION RESTING QUIETLY. RESPIRATIONS EVEN AND UNLABORED. SIDE RAILS UP X2. BED IN LOW POSITION. CALL LIGHT IN REACH.
--- NOTE | 2017-02-19 07:28 | NUR ---
REMAINS WITHOUT NEEDS,WITHOUT CHANGE.CONT PLAN OF CARE
--- NOTE | 2017-02-19 08:55 | NUR ---
PATIENT IN RIGHT LATERAL POSITION RESTING QUIETLY. RESPIRATIONS EVEN AND UNLABORED. SCHEDULED MEDICATION ADMINISTERED. DENIES NEEDS. SIDE RAILS UP X2. BED IN LOW POSITION. CALL LIGHT IN REACH.
--- NOTE | 2017-02-19 09:24 | NUR ---
Patient Name: ADONIS YEE Admission Status: Elective Accout number: [id number] Admission Date: 02-18-2017 : 1960 Admission Diagnosis: Attending: MARIA ALEJANDRA, Current LOS: 1 Anticipated DC Date: 02-22-2017 Planned Disposition: Home Primary Insurance: MEDICAID [place] Discharge Planning Comments: CM MET WITH PATIENT REGARDING D/C NEEDS AND PLANS. PATIENT STATED SHE LIVES WITH HER DAD (JUAN MANUEL) AND HE OR HER DAUGHTER (PÉREZ) WILL DRIVE HER HOME AT DISCHARGE. PATIENT STATED THERE IS ONE STEP TO ENTER HOME AND NO STAIRS INSIDE. PATIENT STATED SHE IS INDEPENDENT WITH HER CARE AND HAS OXYGEN, NEBULIZER, AND PORTABLE O2 AT HOME. PATIENT USES 2L AND HER OXYGEN IS SUPPLIE BY [facility]. PATIENTS PCP IS DR. BESS AND USES [facility]. CM WILL CONTINUE TO FOLLOW PATIENT WITH D/C NEEDS AND PLANS. PCP DR. BESS [facility] JUAN MANUEL GÓMEZ ([facility]) [phone] Hog Ringer: Samantha Ace Is the patient Alert and Oriented? Yes 0 * How many steps to enter\exit or inside your home? 1 0 * PCP DR. BESS 0 * Pharmacy [facility] 0 * Preadmission Environment Home with Family 0 * ADLs Independent 0 * Equipment Nebulizer Oxygen 0 * Other Equipment PORTABLE O2 (2L) ([facility]) 0 * List name and contact numbers for known caregivers / representatives who currently or will assist patient after discharge: JUAN MANUEL GÓMEZ ([facility]) [phone] 0 * Community resources currently utilized None 0 * Additional services required to return to the preadmission environment? Yes 0 * Can the patient safely return to the preadmission environment? Yes 0 * Has this patient been hospitalized within the prior 30 days at any hospital? No 0 Grand Total: 0
[2017-02-19 10:21] LABS: BASOPHILS 0 % (0-2); EOSINOPHILS 0 % (0-7); HEMATOCRIT 44.4 % (36.0-48.0); HEMOGLOBIN 14.5 g/dL (12-16); IMMATURE GRANULOCYTES 0.8 % (0-5); MCH 27.7 pg (26.0-34.0); MCHC 32.7 g/dL (31.0-37.0); MCV 84.7 fL (80.0-100.0); MONOCYTES 1.1 % (2-11); NEUTROPHILS 92.1 % (40-80); PLATELET COUNT 182 10x3/uL (130-400); RBC 5.24 10x6/uL (4.00-5.40); RDW 13.6 % (11.5-14.5); WBC 12.5 10x3/uL (4.8-10.8)
[2017-02-19 10:42] LABS: ALBUMIN 3.3 g/dL (3.4-5.0); ANION GAP 14.6 mmol/L (8-16); BILIRUBIN - TOTAL 0.4 mg/dL (0.2-1.3); CALCIUM 9.3 mg/dL (8.5-10.1); POTASSIUM - SERUM 3.6 mmol/L (3.5-5.1); PROTEIN - SERUM 6.7 g/dL (6.4-8.2)
[2017-02-19 10:47] LABS: CREATININE - SERUM 1.2 mg/dL (0.6-1.3)
--- NOTE | 2017-02-19 12:05 | NUR ---
ALERT IN BED. NO SIGNS OF DISTRESS NOTED. ATIVAN ADMINISTERED PER PATIENT REQUEST PER PRN ORDER. NO FURTHER NEEDS VOICED. SIDE RAILS UP X2. BED IN LOW POSITION. CALL LIGHT IN REACH.
--- NOTE | 2017-02-19 14:33 | NUR ---
C/O PAIN 04/07. TYLENOL #3 ADMINISTERED PER PRN ORDER. DENIES FURTHER NEEDS. SIDE RAILS UP X2. BED IN LOW POSITION. CALL LIGHT IN REACH.
--- NOTE | 2017-02-19 17:00 | NUR ---
SITTING UP IN BED ALERT. NO SIGNS OF DISTRESS NOTED. DENIES NEEDS. BED IN LOW POSITION. CALL LIGHT IN REACH.
--- NOTE | 2017-02-19 19:25 | NUR ---
ASSESSMENT PER FLOW SHEET.PT WITHOUT DISTRESS.DENIES NEEDS AT THIS TIME,BUT REQUEST ME TO CALL DR FOR IV PAIN MEDS.STATES SHE HAS HEADACHE.ALSO REQUEST AMBIEN AT BEDTIME.MONITOR FOR NEEDS
[2017-02-20] VITALS: BP 126/60
--- NOTE | 2017-02-20 00:54 | NUR ---
SLEEPING WITHOUT SIGNS OF DISTRESS.MONITOR FOR NEEDS
--- NOTE | 2017-02-20 02:34 | NUR ---
MEDS ORDERED FOR HEADACHE PER AUG.DENIES NEEDS.CALL LIGHT IN REACH
[2017-02-20 04:00] VITALS: BP 122/67
--- NOTE | 2017-02-20 05:49 | NUR ---
REMAINS WITHOUT NEEDS,WITHOUT CHANGE.CONT PLAN OF CARE
[2017-02-20 07:07] LABS: HEMATOCRIT 42.5 % (36.0-48.0); HEMOGLOBIN 13.9 g/dL (12-16); LYMPHOCYTES 5.9 % (15-50); MCH 27.4 pg (26.0-34.0); MCHC 32.7 g/dL (31.0-37.0); MCV 83.7 fL (80.0-100.0); NEUTROPHILS 90.1 % (40-80); PLATELET COUNT 191 10x3/uL (130-400); RBC 5.08 10x6/uL (4.00-5.40); RDW 13.9 % (11.5-14.5)
[2017-02-20 07:10] LABS: WBC 17.6 10x3/uL (4.8-10.8)
--- NOTE | 2017-02-20 07:15 | NUR ---
PATIENT RECEIVED IN RIGHT LATERAL POSITION RESTING WITH EYES CLOSED. RESPIRATIONS EVEN AND UNLABORED. SIDE RAILS UP X2. BED IN LOW POSITION. CALL LIGHT IN REACH.
[2017-02-20 07:44] LABS: ANION GAP 15.5 mmol/L (8-16); CALCIUM 9.3 mg/dL (8.5-10.1); CARBON DIOXIDE 26.8 mmol/L (21.0-32.0); CREATININE - SERUM 1.1 mg/dL (0.6-1.3); POTASSIUM - SERUM 3.3 mmol/L (3.5-5.1)
[2017-02-20 08:32] VITALS: BP 117/51
--- NOTE | 2017-02-20 08:49 | NUR ---
ALERT IN BED. NO SIGNS OF DISTRESS NOTED. SCHEDULED MEDICATION ADMINISTERED WELL PRN TYLENOL #3. DENIES NEEDS. SIDE RAILS UP X2. BED IN LOW POSITION. CALL LIGHT IN REACH.
[2017-02-20 11:17] LABS: ANA REFLEX - ANTICHROMATIN ABS <0.2 AI (0.0-0.9); ANA REFLEX - CENTROMERE B ABS <0.2 AI (0.0-0.9); ANA REFLEX - DBL STRANDED DNA <1 IU/mL (0-9); ANA REFLEX - DIRECT Positive (Negative); ANA REFLEX - JO-1 AB <0.2 AI (0.0-0.9); ANA REFLEX - RNP ANTIBODIES 6.8 AI (0.0-0.9); ANA REFLEX - SCL-70 <0.2 AI (0.0-0.9); ANA REFLEX - SJOGRENS AB SSA <0.2 AI (0.0-0.9); ANA REFLEX - SJOGRENS AB SSB <0.2 AI (0.0-0.9); ANA REFLEX - SMITH AB <0.2 AI (0.0-0.9)
--- NOTE | 2017-02-20 12:00 | NUR ---
PATIENT SITTING UP IN BED ALERT. NO SIGN OF DISTRESS NOTED. DENIES NEEDS. RATES PAIN 4/10 TO HEAD AFTER RECEIVING PRN FIORICET. SIDE RAILS UP X2. BED IN LOW POSITION. CALL LIGHT IN REACH.
[2017-02-20 14:13] VITALS: BP 127/76
--- NOTE | 2017-02-20 15:08 | NUR ---
C/O PAIN 03/08. TYLENOL #3 ADMINISTERED PER PRN ORDER. DENIES FURTHER NEEDS. SIDE RAILS UP X2. BED IN LOW POSITION. CALL LIGHT REACH.
[2017-02-20 16:46] VITALS: BP 166/79
--- NOTE | 2017-02-20 17:26 | NUR ---
PATIENT SITTING UP IN BED ALERT AND VISITING WITH FAMILY. NO SIGNS OF DISTRESS NOTED. SIDE RAILS UP X2. BED IN LOW POSITION. ALL LIGHT IN REACH. DENIES NEEDS.
--- NOTE | 2017-02-20 19:40 | NUR ---
PATIENT AWAKE, ALERT AND ORIENTED X'S 4. RESPIRATIONS ARE EVEN AND UNLABORED. NO SIGNS OF DISTRESS NOTED. PATIENT DENIES NEEDS AT THIS TIME. BED IN LOWEST POSITION, CALL LIGHT IN REACH. BED RIALS UP X'S 2.
[2017-02-20 20:00] VITALS: BP 109/55
[2017-02-21 00:08] VITALS: BP 123/60
[2017-02-21 04:38] LABS: BASOPHILS 0 % (0-2); EOSINOPHILS 0 % (0-7); HEMATOCRIT 44.5 % (36.0-48.0); HEMOGLOBIN 14.2 g/dL (12-16); IMMATURE GRANULOCYTES 0.6 % (0-5); LYMPHOCYTES 7.3 % (15-50); MCH 27.2 pg (26.0-34.0); MCHC 31.9 g/dL (31.0-37.0); MCV 85.1 fL (80.0-100.0); MEAN PLATELET VOLUME 10.2 fL (7.4-10.4); MONOCYTES 5.5 % (2-11); NEUTROPHILS 86.6 % (40-80); PLATELET COUNT 209 10x3/uL (130-400); RBC 5.23 10x6/uL (4.00-5.40); RDW 13.9 % (11.5-14.5)
--- NOTE | 2017-02-21 04:43 | NUR ---
22G PIV TO RIGHT WRIST STARTED LEAKING. CATH WAS D/C INTACT. 20G LEFT FOREARM PIV STARTED WITH ON STICK AND SALINE LOCKED
[2017-02-21 04:45] LABS: ANION GAP 12.3 mmol/L (8-16); CALCIUM 9.2 mg/dL (8.5-10.1); CARBON DIOXIDE 28.7 mmol/L (21.0-32.0)
--- NOTE | 2017-02-21 07:50 | NUR ---
SLEEPING ON RIGHT SIDE AT THIS TIME. RESPIRATIONS EVEN AND NON LABORED. OXYGEN ON 2L VIA NC. DENIES NEEDS AT THIS TIME. CALL LIGHT IN REACH AND SCD'S OFF PER PT WITH SKIN TO BLE WNL. WILL CONTINUE WITH PLAN OF CARE.
[2017-02-21 09:50] VITALS: BP 136/72
--- NOTE | 2017-02-21 10:36 | NUR ---
PRN TYLENOL WITH CODEIN AND ATIVAN ADMINISTERED PER PRN ORDERS FOR PAIN AND ANXIETY. DENIES FURTHER NEEDS AT THIS TIME. WILL CONTINUE WITH PLAN OF CARE.
[2017-02-21 11:51] VITALS: BP 139/70
--- NOTE | 2017-02-21 12:49 | NUR ---
PRN NORCO ADMINISTERED FOR PAIN /10 AT THIS TIME.
[2017-02-21 16:20] VITALS: BP 118/59
[2017-02-21 20:00] VITALS: BP 159/96
--- NOTE | 2017-02-21 23:03 | NUR ---
RN NOTE: PT RESTING ON LEFT SIDE WITH EYES CLOSED AND UNLABORED BREATHING. IV IN LEFT FA SALINE LOCKED. CALL LIGHT WITHIN REACH. WILL CONTINUE TO MONITOR FOR NEEDS.
[2017-02-22] VITALS: BP 163/81
[2017-02-22 04:00] VITALS: BP 134/76
[2017-02-22 04:39] LABS: BASOPHILS 0.1 % (0-2); EOSINOPHILS 0 % (0-7); HEMATOCRIT 47.9 % (36.0-48.0); HEMOGLOBIN 15.9 g/dL (12-16); LYMPHOCYTES 12.2 % (15-50); MCH 27.8 pg (26.0-34.0); MCHC 33.2 g/dL (31.0-37.0); MCV 83.9 fL (80.0-100.0); MEAN PLATELET VOLUME 10.1 fL (7.4-10.4); MONOCYTES 7.5 % (2-11); NEUTROPHILS 79.2 % (40-80); PLATELET COUNT 219 10x3/uL (130-400); RBC 5.71 10x6/uL (4.00-5.40); WBC 14.7 10x3/uL (4.8-10.8)
[2017-02-22 04:51] LABS: ANION GAP 13.9 mmol/L (8-16); CALCIUM 9.5 mg/dL (8.5-10.1); CARBON DIOXIDE 29.3 mmol/L (21.0-32.0); CREATININE - SERUM 1.2 mg/dL (0.6-1.3); POTASSIUM - SERUM 3.2 mmol/L (3.5-5.1)
--- NOTE | 2017-02-22 07:30 | NUR ---
SLEEPING AT THIS TIME WITH RESPIRATIONS EVEN AND NON LABORED. OXYGEN ON 2L VIA NC. CALL LIGHT IN REACH. BED IN LOWEST POSITION WITH WHEELS LOCKED AND SRX1. WILL CONTINUE WITH PLAN OF CARE.
--- NOTE | 2017-02-22 08:47 | NUR ---
SCHEDULED MEDICATIONS ADMINISTERED AT THIS TIME WELL PRN ATIVAN AND NORCO. DENIES FURTHER NEEDS. CALL LIGHT IN REACH, WILL CONTINUE WITH PLAN OF CARE.
[2017-02-22 11:00] VITALS: BP 124/75
--- NOTE | 2017-02-22 14:50 | NUR ---
PRN ATIVAN AND NORCO ADMINISTERED.
[2017-02-22 15:00] VITALS: BP 130/69
[2017-02-22 20:00] VITALS: BP 145/85
--- NOTE | 2017-02-23 00:49 | NUR ---
RN NOTE: PT RESTING QUIETLY IN SUPINE POSITION WITH EASY RESPIRATIONS. IV IN LEFT FA PATENT WITH NS INFUSING AT 10 ML / HR. TELEMETRY IN PLACE. WILL CONTINUE TO MONITOR FOR NEEDS.
--- NOTE | 2017-02-23 03:42 | NUR ---
EYES CLOSED RESPIRATIONS WITH EAS AND UNLABORED.
[2017-02-23 04:00] VITALS: BP 142/84
[2017-02-23 06:33] LABS: BASOPHILS 0.1 % (0-2); EOSINOPHILS 0 % (0-7); HEMATOCRIT 51.6 % (36.0-48.0); HEMOGLOBIN 16.9 g/dL (12-16); IMMATURE GRANULOCYTES 1.3 % (0-5); LYMPHOCYTES 14.8 % (15-50); MCH 27.8 pg (26.0-34.0); MCHC 32.8 g/dL (31.0-37.0); MCV 84.9 fL (80.0-100.0); MEAN PLATELET VOLUME 10.3 fL (7.4-10.4); MONOCYTES 8.1 % (2-11); NEUTROPHILS 75.7 % (40-80); PLATELET COUNT 219 10x3/uL (130-400); RBC 6.08 10x6/uL (4.00-5.40); RDW 14.2 % (11.5-14.5)
[2017-02-23 06:53] LABS: ANION GAP 16.9 mmol/L (8-16); CALCIUM 9.3 mg/dL (8.5-10.1); CARBON DIOXIDE 26.1 mmol/L (21.0-32.0)
--- NOTE | 2017-02-23 07:05 | NUR ---
PT LAYING IN SUPIINE POSITION WITH NO COMPLAINTS OF PAIN OR DISCOMFORT AT THIS TIME. BED IN LOW POSITION AND CALL LIGHT WITHIN REACH. WILL CONTINUE TO MONITOR.
--- NOTE | 2017-02-23 07:15 | NUR ---
REPORT RECEIVED FROM COMMUNITY CHEST OFFICER NURSE. CALL LIGHT IN REACH.
--- NOTE | 2017-02-23 08:28 | NUR ---
ASSESSMENT COMPLETED. AM MEDS ADMINISTERED. CALL LIGHT IN REACH. SCDs OFF. WILL CONTINUE WITH PLAN OF CARE.
[2017-02-23 08:59] VITALS: BP 149/85
--- NOTE | 2017-02-23 09:50 | NUR ---
DENIES NEEDS AT THIS TIME. CALL LIGHT IN REACH.
[2017-02-23 11:41] VITALS: BP 146/91
--- NOTE | 2017-02-23 11:52 | NUR ---
LASIX 20 MG SIVP PER ORDER. NYSTATIN PO AND NORCO PO FOR PAIN OF 8. CALL LIGHT IN REACH.
--- NOTE | 2017-02-23 13:41 | NUR ---
ATIVAN PO PER C/O ANXIETY. IV FLUSHED WITH NS. STATES PAIN IS DOWN TO A 5. CALL LIGHT IN REACH.
--- NOTE | 2017-02-23 15:50 | NUR ---
PHYSICAL THERAPY WALKED PATIENT EARLIER AND SAID SHE IS ABLE TO AMBULATE ON HER OWN NOW.
[2017-02-23 16:19] VITALS: BP 150/97
--- NOTE | 2017-02-23 16:55 | NUR ---
NO NEEDS VOICED AT THIS TIME. CALL LIGHT IN REACH.
--- NOTE | 2017-02-23 18:05 | NUR ---
AFTERNOON MEDS ADMINISTERED WITH NORCO PO. NO CHANGES IN INITIAL ASSESSMENT. STILL DOESN'T WANT TO WEAR SCDs. CALL LIGHT IN REACH. WILL CONTINUE WITH PLAN OF CARE.
--- NOTE | 2017-02-23 18:51 | NUR ---
DR MORILLO SPOKE WITH GROUND MIXER REGARDING CAR RENTAL CLERK WEIGHT PORTABLE OXYGEN UNIT FOR PATIENT. ODELL SPOKE WITH ADELAIDE, THE PRINTING ROLLER POLISHER FROM [facility]. WILL FAX PULMONARY NOTE TO [facility] SO THAT THEY CAN DISCUSS W/ .
[2017-02-23 19:30] VITALS: BP 120/89
--- NOTE | 2017-02-23 19:45 | NUR ---
RECIEVED SHIFT REPORT. PT IS LYING IN BED. ALERT AND ORIENTED AND ABLE TO VERBALIZED NEEDS. IV IS PATENT AND SALINE LOC AT THIS TIME. O2 @ 2 PER NASAL CANNULA. PT IS AMBULATORY BUT WAS INSTRUCTED TO CALL FOR ANY ASSISTANCE NEEDED. SCD'S OFF AT THIS TIME PER PT REQUEST. PT STATES PAIN IS 7/10. NO NEEDS ARE VERBALIZED AT THIS TIME. WILL CONTINUE TO MONITOR. SIDE RAILS ARE UP X 2. BED IS IN LOWEST POSITION. CALL LIGHT IS WITHIN REACH.
--- NOTE | 2017-02-23 21:32 | NUR ---
SHIFT ASSESSMENT COMPLETED. NIGHT MEDS GIVEN WITH NO PROBLEMS. NO NEEDS ARE VOICED. WILL MONITOR. SIDE RAILS X 2. BED LOW. CALL LIGHT IN REACH.
[2017-02-23 23:10] VITALS: BP 128/64
[2017-02-24 03:15] VITALS: BP 152/78
--- NOTE | 2017-02-24 07:05 | NUR ---
AWAKE AND ALERT. ORIENTED X3. NO C/O THIS AM. LUNGS ARE CLEAR BUT DIMINISHED THROUGHOUT ESPECIALLY RIGHT LOWER LOBE. REPORTS OCCASSIONALLY PRODUCTIVE COUGH. SKIN IS INTACT WITHOUT REDNESS. SL TO LEFT FOREARM IS PATENT WITHOUT REDNESS AT INSERTION SITE.
[2017-02-24 07:46] LABS: BASOPHILS 0.1 % (0-2); EOSINOPHILS 0.1 % (0-7); HEMATOCRIT 52.4 % (36.0-48.0); HEMOGLOBIN 17.6 g/dL (12-16); IMMATURE GRANULOCYTES 1.3 % (0-5); LYMPHOCYTES 15.3 % (15-50); MCH 28.4 pg (26.0-34.0); MCHC 33.6 g/dL (31.0-37.0); MCV 84.5 fL (80.0-100.0); MEAN PLATELET VOLUME 9.9 fL (7.4-10.4); MONOCYTES 7.9 % (2-11); NEUTROPHILS 75.3 % (40-80); PLATELET COUNT 205 10x3/uL (130-400); RDW 14.1 % (11.5-14.5); WBC 14.9 10x3/uL (4.8-10.8)
[2017-02-24 08:05] LABS: CALCIUM 9.4 mg/dL (8.5-10.1); CARBON DIOXIDE 30.8 mmol/L (21.0-32.0); CREATININE - SERUM 1.1 mg/dL (0.6-1.3); POTASSIUM - SERUM 3.8 mmol/L (3.5-5.1)
[2017-02-24 09:24] VITALS: BP 159/88
--- NOTE | 2017-02-24 09:45 | NUR ---
REQUESTED AND GIVEN ATIVAN PO FOR C/O ANXIETY. WILL MONITOR.
[2017-02-24] MEDS ORDERED: Levaquin PO (11:42)
[2017-02-24] MEDS ORDERED: NICODERM C1 PATCH .2 TRANSDERM (11:43)
[2017-02-24] MEDS ORDERED: NYSTATIN ORAL SU5 ML PO (11:43)
[2017-02-24] MEDS ORDERED: BROVANA15 MCG/2 M INH (11:43)
[2017-02-24] MEDS ORDERED: FLORAJEN3 CAPS460 MG PO (11:44)
[2017-02-24] MEDS ORDERED: LATUDA40 MG PO (11:45)
[2017-02-24] MEDS ORDERED: COZAAR50 MG PO (11:47)
[2017-02-24] MEDS ORDERED: NORCO 7.5/325 T1 TA1 PO (11:51)
[2017-02-24] MEDS ORDERED: ATIVAN1 MG PO (11:51)
--- NOTE | 2017-02-24 12:31 | NUR ---
REQUESTED AND GIVEN ONE HYDROCODONE PO FOR C/O BACK PAIN AND HEADACHE. WILL MONITOR.
[2017-02-24 14:02] VITALS: BP 136/90
--- NOTE | 2017-02-24 14:52 | NUR ---
CM REASSESSMENT NOTE: PATIENT IS DISCHARGING HOME TODAY. PATIENT REFUSED HOME HEALTH AND STATED HER DAUGHTER IS DRIVING HER HOME.
--- NOTE | 2017-02-24 15:00 | NUR ---
DISCHARGED TO HOME AMBULATORY WITH FAMILY. DISCHARGE INSTRUCITONS GIVEN BOTH VERBALLY AND WRITTEN. ALL QUESTIONS ANSWERED. PATIENT VERBALIZED UNDERSTANDING OF SAME. IV TO LEFT FOREARAM D/C WITH CATHETER INTACT. ALL BELONGINGS WITH PATIENT.
== END 2017-02-24 15:00 | disposition home or self-care (01) | DRG 189 ==
LOC: D.MS 15:52
PROVIDERS: Family Medicine; Internal Medicine Pulmonary Disease; ADMIT Family Medicine
DX: J96.01 Acute respiratory failure with hypoxia (principal); J18.1 Lobar pneumonia, unspecified organism; J44.0 Chronic obstructive pulmonary disease with (acute) lower respiratory infection; J44.1 Chronic obstructive pulmonary disease with (acute) exacerbation; Z68.41 Body mass index [BMI] 40.0-44.9, adult; I50.9 Heart failure, unspecified; I25.10 Atherosclerotic heart disease of native coronary artery without angina pectoris; K21.9 Gastro-esophageal reflux disease without esophagitis; J84.10 Pulmonary fibrosis, unspecified; E66.9 Obesity, unspecified; R00.1 Bradycardia, unspecified

== ENCOUNTER → 2017-03-30 14:48 | Outpatient (CLI) | payer MEDICAID ==
[2017-02-19 14:25] VITALS: BMI 42.1
[~2017-03-30 14:48] MED LIST changes: +AMBIEN10 MG PO; +ATIVAN1 MG PO; +ATIVAN2 MG PO; +BROVANA15 MCG/2 M INH; +COZAAR50 MG PO; +FLORAJEN3 CAPS460 MG PO; +IPRAT-ALBUT 0.5-3 ML UPD; +LATUDA40 MG PO; +LEVAQUIN750 MG PO; +Levaquin PO; +MEDROL DOSE PACK4 MG PO; +MUCINEX600 MG PO; +NICODERM C1 PATCH .2 TRANSDERM; +NORCO 7.5/325 T1 TA1 PO; +NYSTATIN ORAL SU5 ML PO; +PREDNISONE5 MG PO; +PULMICORT0.5 MG/21 UPD; +TESSALON PERLE100 MG PO
== END | disposition home or self-care (01) ==
LOC: D.MRI 14:48
DX: M54.2 Cervicalgia (principal)

== ENCOUNTER 2017-05-17 16:31 | Inpatient (IN) | payer MEDICAID ==
[~2017-05-17] VITALS: Ht 157.5 cm; Wt 99.8 kg
[~2017-05-17 16:31] MED LIST changes: -ATIVAN2 MG PO; -IPRAT-ALBUT 0.5-3 ML UPD; -LEVAQUIN750 MG PO; -MEDROL DOSE PACK4 MG PO; -MUCINEX600 MG PO; -PREDNISONE5 MG PO; -PULMICORT0.5 MG/21 UPD; -TESSALON PERLE100 MG PO
[2017-05-17 17:09] LABS: APPEARANCE HAZY (CLEAR); BILIRUBIN NEGATIVE (NEGATIVE); COLOR YELLOW (YELLOW); GLUCOSE NEGATIVE (NEGATIVE); KETONE NEGATIVE (NEGATIVE); NITRITE NEGATIVE (NEGATIVE); PROTEIN NEGATIVE (NEGATIVE); UROBILINOGEN NORMAL (NORMAL)
[2017-05-17 17:10] LABS: BASOPHILS 0.3 % (0-2); EOSINOPHILS 1.8 % (0-7); HEMATOCRIT 45.1 % (36.0-48.0); HEMOGLOBIN 14.3 g/dL (12-16); IMMATURE GRANULOCYTES 0.5 % (0-5); LYMPHOCYTES 21.3 % (15-50); MCH 27.4 pg (26.0-34.0); MCHC 31.7 g/dL (31.0-37.0); MCV 86.4 fL (80.0-100.0); MEAN PLATELET VOLUME 9.6 fL (7.4-10.4); MONOCYTES 8.2 % (2-11); NEUTROPHILS 67.9 % (40-80); PLATELET COUNT 217 10x3/uL (130-400); RBC 5.22 10x6/uL (4.00-5.40); RDW 14.1 % (11.5-14.5); WBC 9.7 10x3/uL (4.8-10.8)
[2017-05-17 17:18] LABS: UDS - AMPHET NEGATIVE QUAL (NEGATIVE); UDS - BARB NEGATIVE QUAL (NEGATIVE); UDS - BENZO POSITIVE QUAL (NEGATIVE); UDS - COCAINE NEGATIVE QUAL (NEGATIVE); UDS - OPIATE NEGATIVE QUAL (NEGATIVE); UDS - PCP NEGATIVE QUAL (NEGATIVE); UDS - THC NEGATIVE QUAL (NEGATIVE)
[2017-05-17 17:23] LABS: ALBUMIN 3.3 g/dL (3.4-5.0); ALKALINE PHOSPHATASE 105 U/L (46-116); ALT (SGPT) 15 U/L (10-68); BILIRUBIN - TOTAL 0.58 mg/dL (0.2-1.3); CALC OSMOLALITY 285 mosm/kg (275-300); CALCIUM 9.1 mg/dL (8.5-10.1); CARBON DIOXIDE 31.5 mmol/L (21.0-32.0); CHLORIDE - SERUM 105 mmol/L (98-107); CREATININE - SERUM 0.8 mg/dL (0.6-1.3); GLUCOSE 120 mg/dL (74-106); POTASSIUM - SERUM 3.1 mmol/L (3.5-5.1); PROTEIN - SERUM 6.9 g/dL (6.4-8.2); SODIUM 144 mmol/L (136-145); UREA NITROGEN 7 mg/dL (7-18); eGFR NON AFRICAN AMERICAN 78 mL/min (90-120)
[2017-05-17 17:31] LABS: PRO BNP 326 pg/mL (0-125); TROPONIN-I < 0.017 ng/mL (0.000-0.060)
[2017-05-17 17:34] LABS: INR 1.02 (0.85-1.17); PROTIME 13.3 SECONDS (11.6-15.0)
[2017-05-17 20:00] VITALS: BP 169/105
[2017-05-17] MEDS ORDERED: ATIVAN2 MG PO (22:07)
[2017-05-17] MEDS ORDERED: EDARBI40 MG PO (22:11)
[2017-05-17] MEDS ORDERED: PREDNISONE5 MG PO (22:15)
[2017-05-17] MEDS ORDERED: TYLENOL #4 W/CO1 TAB PO (22:16)
[2017-05-17 22:58] VITALS: BP 190/103; BMI 40.3
[2017-05-18] VITALS: BP 169/105
[2017-05-18 04:00] VITALS: BP 162/91
[2017-05-18 08:38] VITALS: BP 182/87
--- NOTE | 2017-05-18 08:45 | NUR ---
REC'D IN BED WITH EYES CLOSED EASILY AROUSED WHEN NAME IS CALLED. RESP EVEN AND UNLABORED WITH NO DISTRESS NOTED. CAN EXPRESS NEEDS AND WANTS. C/L IN REACH AT BEDSIDE.
[2017-05-18 10:49] LABS: BASOPHILS 0.1 % (0-2); EOSINOPHILS 1.5 % (0-7); HEMATOCRIT 43.6 % (36.0-48.0); HEMOGLOBIN 13.9 g/dL (12-16); IMMATURE GRANULOCYTES 0.4 % (0-5); LYMPHOCYTES 19.1 % (15-50); MCH 27.3 pg (26.0-34.0); MCHC 31.9 g/dL (31.0-37.0); MCV 85.5 fL (80.0-100.0); MEAN PLATELET VOLUME 9.8 fL (7.4-10.4); MONOCYTES 6.9 % (2-11); PLATELET COUNT 209 10x3/uL (130-400); RDW 13.9 % (11.5-14.5); WBC 8.2 10x3/uL (4.8-10.8)
--- NOTE | 2017-05-18 10:58 | NUR ---
PT NOTE-ASSISTED TO BATHROOM. VOIDED WITHOUT DIFFICULTY. BACK TO BED. COUGHING BUT NO PHLEGM. STATES COLOR IS GREEN. FAMILY AT BEDSIDE. CALL LIGHT IN REACH
[2017-05-18 11:15] LABS: BILIRUBIN - TOTAL 0.49 mg/dL (0.2-1.3); CALCIUM 8.8 mg/dL (8.5-10.1); CARBON DIOXIDE 27.4 mmol/L (21.0-32.0); CREATININE - SERUM 0.9 mg/dL (0.6-1.3); PROTEIN - SERUM 6.6 g/dL (6.4-8.2)
[2017-05-18 11:18] LABS: ANION GAP 13.6 mmol/L (8-16)
[2017-05-18 12:38] VITALS: BP 200/98
[2017-05-18 14:49] VITALS: Ht 157.5 cm; Wt 99.8 kg
--- NOTE | 2017-05-18 18:10 | NUR ---
OT NOTE: PT COMPLETED DYNAMIC SITTING BALANCE WITH SBA/SPV. PT COMPLETED BUE GROSS MOTOR AXS. THANK YOU, HEATHER YUSUF/Benjy
--- NOTE | 2017-05-18 19:45 | NUR ---
UPON ANSWERING THE PATIENT'S CALL LIGHT, THE PATIENT REQUESTED PAIN MEDICATION FOR 10/10 PAIN IN HER BACK AND NECK. I EXPLAINED TO THE PATIENT THAT THE PAIN MEDICATION SHE HAD REC'D EARLIER WAS A ONE TIME DOSE. THE PATIENT VERBALIZED UNDERSTANDING AND REQUESTED HER SEROQUEL, AMBIEN, AND ATIVAN. I EXPLAINED TO THE PATIENT THAT I WILL GIVE HER SEROQUEL @ 2000 AND HER OTHER MEDS @ 2100. PATIENT VERBALIZED UNDERSTANDING AND AGREED.
[2017-05-18 23:01] VITALS: BP 163/84
[2017-05-19 04:46] VITALS: BP 155/78
[2017-05-19 05:59] LABS: BASOPHILS 0.3 % (0-2); EOSINOPHILS 1.8 % (0-7); HEMATOCRIT 42.3 % (36.0-48.0); HEMOGLOBIN 13.3 g/dL (12-16); IMMATURE GRANULOCYTES 0.5 % (0-5); LYMPHOCYTES 24.9 % (15-50); MCH 26.9 pg (26.0-34.0); MCHC 31.4 g/dL (31.0-37.0); MCV 85.6 fL (80.0-100.0); MEAN PLATELET VOLUME 9.8 fL (7.4-10.4); MONOCYTES 10.7 % (2-11); NEUTROPHILS 61.8 % (40-80); PLATELET COUNT 206 10x3/uL (130-400); RBC 4.94 10x6/uL (4.00-5.40); RDW 14.1 % (11.5-14.5); WBC 7.3 10x3/uL (4.8-10.8)
[2017-05-19 06:34] LABS: ALBUMIN 2.9 g/dL (3.4-5.0); ALKALINE PHOSPHATASE 89 U/L (46-116); ALT (SGPT) 18 U/L (10-68); BILIRUBIN - TOTAL 0.54 mg/dL (0.2-1.3); CALC OSMOLALITY 286 mosm/kg (275-300); CARBON DIOXIDE 26.5 mmol/L (21.0-32.0); CHLORIDE - SERUM 108 mmol/L (98-107); CREATININE - SERUM 0.8 mg/dL (0.6-1.3); GLUCOSE 120 mg/dL (74-106); POTASSIUM - SERUM 3.1 mmol/L (3.5-5.1); PROTEIN - SERUM 6.3 g/dL (6.4-8.2); SODIUM 144 mmol/L (136-145); UREA NITROGEN 9 mg/dL (7-18); eGFR NON AFRICAN AMERICAN 78 mL/min (90-120)
--- NOTE | 2017-05-19 08:25 | NUR ---
SIT UP IN BED AND EAT BREAKFAST.
[2017-05-19 08:42] VITALS: BP 130/76
[2017-05-19 11:26] VITALS: BP 144/79
--- NOTE | 2017-05-19 11:38 | NUR ---
Patient Name: ADONIS YEE Admission Status: ER Accout number: [id number] Admission Date: 05-17-2017 : 1960 Admission Diagnosis: Attending: YUE LAW Current LOS: 2 Anticipated DC Date: 05-22-2017 Planned Disposition: Home Primary Insurance: MEDICAID [place] Discharge Planning Comments: CM MET WITH PATIENT REGARDING D/C NEEDS AND PLANS. PATIENT STATED SHE LIVES WITH HER MOM AND THERE ARE 2 FLIGHTS OF STAIRS W/RAILS AND SHE USES ONE OF THEM. PATIENTS DAUGHTER (PÉREZ) WILL DRIVE HER HOME AT DISCHARGE. PATIENT STATED SHE IS INDEPENDENT WITH HER CARE AND HAS OXYGEN, PORTABLE O2, AND A NEBULIZER AT HOME. PATIENTS PCP IS DR. BESS AND PHARMACY IS [facility]. PATIENT IS REFUSING HH AT THIS TIME. CM WILL CONTINUE TO FOLLOW PATIENT WITH D/C NEEDS AND PLANS. PCP DR. BESS [facility] [phone] PÉREZ (DAUGHTER) [phone] Chisel Worker: Samantha Ace Is the patient Alert and Oriented? Yes 0 * How many steps to enter\exit or inside your home? 1 FLIGHT 0 * PCP DR. BESS 0 * Pharmacy [facility] 0 * Preadmission Environment Home with Family 0 * ADLs Independent 0 * Equipment Nebulizer Oxygen 0 * Other Equipment PORTABLE O2 0 * List name and contact numbers for known caregivers / representatives who currently or will assist patient after discharge: PÉREZ [phone] (DAUGHTER) 0 * Community resources currently utilized None 0 * Additional services required to return to the preadmission environment? Yes 0 * Can the patient safely return to the preadmission environment? Yes 0 * Has this patient been hospitalized within the prior 30 days at any hospital? No 0 Grand Total: 0
--- NOTE | 2017-05-19 11:50 | NUR ---
LAYING RIGHT SIDE, REST QUEITLY, CALL LIGHT IN REACH.
--- NOTE | 2017-05-19 13:45 | NUR ---
PT'S LAB POTASSIUM LEVEL IS 3.4, TALK TO CHARGE NURSE,AND GIVEN 40 MEQ POTASSIUM TAB FOR PT.
--- NOTE | 2017-05-19 15:51 | NUR ---
OT NOTE: PT AMB IN ROOM AND TO BATHROOM; PERFORMED TOILETING INDEP. SINK HYGIENE INDEP. PT REPORTED THAT SHE HAD BEEN HAVING EPISODES OF "LOOSING BALANCE" FOR PAST WEEK, BUT WAS FEELING BETTER TODAY. NO LOB NOTED WHILE IN ROOM THIS AFTERNOON. PROVIDED PT WITH HOME EX PROGRAM TO BE PERFORMED 2X/DAY. CHARITO STARKEY, OTR/L
[2017-05-19 16:10] VITALS: BP 151/78
--- NOTE | 2017-05-19 17:58 | NUR ---
OT NOTE: PT COMPLETED DYNAMIC SITTING BALANCE WITH I. PT COMPLETED SIT TO STANDS WITH I. THANK YOU, HEATHER YUSUF/Benjy
[2017-05-19 20:00] VITALS: BP 134/76
--- NOTE | 2017-05-19 20:20 | NUR ---
PATIENT RESTING IN BED AND DENIES NEEDS AT THIS TIME. COMPLETED ASSESSMENT. BED IN LOWEST POSITION AND CALL LIGHT WITHIN REACH. ENCOURAGED THE PATIENT TO CALL IF SHE HAS NEEDS.
[2017-05-20] VITALS: BP 154/80
--- NOTE | 2017-05-20 02:06 | NUR ---
I ADMINISTERED THE PATIENT'S MEDICATIONS PER ORDERS AT 2109. THE PATIENT HAS CALLED MULTIPLE TIMES SAYING THAT SHE HAS NOT REC'D HER EVENING MEDICATIONS. THE PATIENT HAS SLURRED SPEECH EACH TIME I ENTER THE ROOM AND HAS NO RECOLLECTION OF RECEIVING HER MEDS. I REORIENT THE PATIENT EACH TIME SHE ASKS ABOUT HER MEDICATION AND SHE VERBALIZES UNDERSTANDING, HOWEVER, SHE CONTINUES TO ASK FOR HER MEDS THAT HAVE ALREADY BEEN ADMINISTERED.
[2017-05-20 04:00] VITALS: BP 160/93
--- NOTE | 2017-05-20 05:14 | NUR ---
NOTIFIED BY MEDHAT FROM LAB THAT THE PATIENT REFUSED HER MORNING BLOOD DRAW AT THIS TIME.
[2017-05-20 05:15] LABS: IMMUNOGLOBULIN E 31 IU/mL (0-100)
[2017-05-20 08:30] LABS: BASOPHILS 0.1 % (0-2); EOSINOPHILS 2.9 % (0-7); HEMATOCRIT 43.5 % (36.0-48.0); HEMOGLOBIN 13.8 g/dL (12-16); IMMATURE GRANULOCYTES 0.6 % (0-5); LYMPHOCYTES 22.4 % (15-50); MCH 27.4 pg (26.0-34.0); MCHC 31.7 g/dL (31.0-37.0); MCV 86.5 fL (80.0-100.0); MEAN PLATELET VOLUME 9.7 fL (7.4-10.4); MONOCYTES 10.2 % (2-11); NEUTROPHILS 63.8 % (40-80); PLATELET COUNT 185 10x3/uL (130-400); RBC 5.03 10x6/uL (4.00-5.40); RDW 14.4 % (11.5-14.5); WBC 6.9 10x3/uL (4.8-10.8)
[2017-05-20 08:45] VITALS: BP 143/107
[2017-05-20 08:54] LABS: ALBUMIN 3.2 g/dL (3.4-5.0); ANION GAP 14.9 mmol/L (8-16); BILIRUBIN - TOTAL 0.52 mg/dL (0.2-1.3); CALCIUM 9.3 mg/dL (8.5-10.1); CREATININE - SERUM 0.9 mg/dL (0.6-1.3); POTASSIUM - SERUM 3.9 mmol/L (3.5-5.1); PROTEIN - SERUM 6.7 g/dL (6.4-8.2)
[2017-05-20 11:19] LABS: IMMUNOGLOBULIN A 172 mg/dL (87-352); IMMUNOGLOBULIN G 416 mg/dL (700-1600)
--- NOTE | 2017-05-20 11:51 | NUR ---
PT IS SITTING UP IN BED. MED GIVEN. SHE OFFERS NO COMPLAINTS. PT HAS BEEN ACTING VERY ANXIOUS. SHE RECEIVED HER ATIVAN EARLIER SEEMS TO BE A LITTLE MORE CALM.
[2017-05-20 12:36] VITALS: BP 176/96
[2017-05-20 16:47] VITALS: BP 182/93
[2017-05-20 21:36] VITALS: BP 185/95
--- NOTE | 2017-05-21 00:08 | NUR ---
PATIENT IS CONFUSED. AMBULATED OUT IN THE JAIN LOOKING FOR A BATHROOM, DAIRY NUTRITION CONSULTANT ASSISTED PATIENT BACK TO HER ROOM. NOTIFIED PATIENT'S ASSIGNED NURSE VERONICA.
--- NOTE | 2017-05-21 00:31 | NUR ---
PT PULLED OUT LEFT HAND IV. LEFT WRIST 22GAUGE INSERTED BY MALIK ABREU. RESTARTED CEFEPIME.
[2017-05-21 04:00] VITALS: BP 168/89
--- NOTE | 2017-05-21 05:00 | NUR ---
PT IN BED WITH HOB UP FOR COMFORT LYING ON LEFT SIDE. EYES CLOSED. RESPIRATIONS EVEN AND UNLABORED. LEFT WRIST SL. BED IN LWOEST POSITON, SIDE RAILS X2, CALL LIGHT IN REACH.
[2017-05-21 05:28] LABS: BASOPHILS 0.1 % (0-2); EOSINOPHILS 4.8 % (0-7); HEMOGLOBIN 13.6 g/dL (12-16); IMMATURE GRANULOCYTES 0.4 % (0-5); LYMPHOCYTES 27.8 % (15-50); MCH 27.1 pg (26.0-34.0); MCHC 31.6 g/dL (31.0-37.0); MCV 85.7 fL (80.0-100.0); MEAN PLATELET VOLUME 9.9 fL (7.4-10.4); MONOCYTES 10.2 % (2-11); NEUTROPHILS 56.7 % (40-80); PLATELET COUNT 198 10x3/uL (130-400); RBC 5.02 10x6/uL (4.00-5.40); RDW 14.4 % (11.5-14.5); WBC 6.7 10x3/uL (4.8-10.8)
[2017-05-21 06:16] LABS: ALBUMIN 3.1 g/dL (3.4-5.0); ALKALINE PHOSPHATASE 102 U/L (46-116); ALT (SGPT) 21 U/L (10-68); CALC OSMOLALITY 280 mosm/kg (275-300); CALCIUM 9.1 mg/dL (8.5-10.1); CARBON DIOXIDE 22.5 mmol/L (21.0-32.0); CHLORIDE - SERUM 105 mmol/L (98-107); CREATININE - SERUM 0.8 mg/dL (0.6-1.3); GLUCOSE 155 mg/dL (74-106); POTASSIUM - SERUM 3.7 mmol/L (3.5-5.1); PROTEIN - SERUM 6.5 g/dL (6.4-8.2); SODIUM 140 mmol/L (136-145); UREA NITROGEN 9 mg/dL (7-18); eGFR NON AFRICAN AMERICAN 78 mL/min (90-120)
--- NOTE | 2017-05-21 08:49 | NUR ---
PT AOX4 RESP EVEN AND NONLABORED IV TO LEFT WRIST PATENT AND INTACT AT THIS TIME SRX2 BED AT LOWEST SETTING CALL LIGHT WITHIN REACH WILL CONTINUE TO MONITOR
[2017-05-21 09:13] VITALS: BP 176/98
[2017-05-21] MEDS ORDERED: TESSALON PERLE100 MG PO (09:23)
[2017-05-21] MEDS ORDERED: MUCINEX600 MG PO (09:23)
[2017-05-21] MEDS ORDERED: LEVAQUIN750 MG PO (09:25)
[2017-05-21] MEDS ORDERED: PULMICORT0.5 MG/21 UPD (09:26)
[2017-05-21] MEDS ORDERED: IPRAT-ALBUT 0.5-3 ML UPD (09:26)
[2017-05-21] MEDS ORDERED: ATIVAN2 MG PO (09:26)
[2017-05-21] MEDS ORDERED: TYLENOL #4 W/CO1 TAB PO (09:26)
--- NOTE | 2017-05-21 14:08 | NUR ---
Order rec'd for home nebulizer. Call placed to Cindy with [facility]. Requested nebulizer be delivered to hospital prior to discharge. Nursing unit faxed face sheet, order & PN faxed to [facility].
--- NOTE | 2017-05-21 14:15 | NUR ---
PT GIVEN DISCHARGE INSTRUCTIONS AND IV DISCONTINUED WITH CATHETER INTACT AT THIS TIME
--- NOTE | 2017-05-21 14:24 | NUR ---
PT TAKEN VIA WHEELCHAIR VIA PRIVATE VEHCILE AT THIS TIME
--- NOTE | 2017-05-25 09:02 | EC ---
PATIENT:ADONIS YEE DATE OF SERVICE: 05/17/17 SEX: F MEDICAL RECORD: [id number] DATE OF : 60 LOCATION:[facility] AGE OF PATIENT: 57 ADMISSION DATE: 05/17/17 REFERRING PHYSICIAN: INTERPRETING PHYSICIAN: MARYURI PRIEST MD ECHOCARDIOGRAM REPORT ECHO CHARGES 4 ECHO COMPLETE CLINICAL DIAGNOSIS: SOB HX CAD/STENTS/HTN ECHOCARDIOGRAPHIC MEASUREMENTS (adult normal given) AC root (d.<3.7cm) 4.2 cm LV Septum d (<1.2 cm> 1.6 cm Valve Excursion 1.7 cm LV Septum (systole) 1.8 cm Left Atria (s.<4.0cm> 4.4 cm LVPW d(<1.2cm) 1.5 cm RV (d.<2.3cm) 3.5 cm LVPW (sytole) 1.8 cm LV diastole(<5.6CM) 4.9 cm MV E-F(>70mm/sec) cm LV systole 3.6 cm LVOT Diameter 1.6 cm MV exc.(>10mm) cm Est.ejection fraction (50-75%) % Pericardial Effusion N DOPPLER: LVIT cm/sec A 79.0 cm/sec E 67.0 cm/sec LA cm/sec RVSP 24 mmHg LVOT 171 cm/sec AOP1/2T m/s Asc. Ao 201 cm/sec RVOT cm/sec RA cm/sec PA cm/sec AV Gradient Peak 16.14mmHg AV Mean 8.73 mmHg AV Area 2.4 cm MV Gradient Peak 7.08 mmHg MV Mean 2.10 mmHg MV Area cm COMMENTS: Law Writer: Rosa FOFANA Business Job Titles: 3 Dr. Beck TAPE# PACS DATE OF SERVICE: 05/19/2017 ECHOCARDIOGRAM DATE OF SERVICE: 05/19/2017 FINDINGS: 1. Left ventricular chamber size is within normal limits. Left ventricular systolic function is normal. Overall ejection fraction estimated at 55%. 2. Left atrium is enlarged at 4.4 cm. Right atrium and right ventricular ECHOCARDIOGRAM REPORT [id number] ADONIS YEE chamber size is within normal limits. 3. Valvular structures have normal structure and motion. 4. Doppler interrogation reveals mild tricuspid regurgitation. No other valvular insufficiency or stenosis. 5. No evidence of pericardial effusion or left ventricular thrombus. TRANSINT:[id number] Voice Confirmation ID: [id number] DOCUMENT ID: [id number] MARYURI PRIEST MD at 0902 CC: [id number] DICTATION DATE: 05/20/17 112 PROSPECTING OBSERVER: 05/20/17 1140 DIS IN 05/21/17 1910 [place] [id number]
== END 2017-05-21 14:25 | disposition home or self-care (01) | DRG 194 ==
LOC: D.ER 16:31 → D.MS 19:45
PROVIDERS: Family Medicine Adult Medicine; Internal Medicine Pulmonary Disease; Nurse Practitioner Family; ADMIT Emergency Medicine
DX: J18.9 Pneumonia, unspecified organism (principal); J47.0 Bronchiectasis with acute lower respiratory infection; I50.32 Chronic diastolic (congestive) heart failure; I11.0 Hypertensive heart disease with heart failure; J84.10 Pulmonary fibrosis, unspecified; M32.19 Other organ or system involvement in systemic lupus erythematosus; R41.82 Altered mental status, unspecified; E87.6 Hypokalemia; M79.7 Fibromyalgia; E78.00 Pure hypercholesterolemia, unspecified; K21.9 Gastro-esophageal reflux disease without esophagitis; G47.36 Sleep related hypoventilation in conditions classified elsewhere; I07.1 Rheumatic tricuspid insufficiency; R51 Headache

== ENCOUNTER → 2017-06-09 10:46 | Outpatient (CLI) | payer MEDICAID ==
[2017-05-18 14:49] VITALS: BMI 40.2
[~2017-06-09 10:46] MED LIST changes: +ATIVAN2 MG PO; +IPRAT-ALBUT 0.5-3 ML UPD; +LEVAQUIN750 MG PO; +MEDROL DOSE PACK4 MG PO; +MUCINEX600 MG PO; +PREDNISONE5 MG PO; +PULMICORT0.5 MG/21 UPD; +TESSALON PERLE100 MG PO
== END | disposition home or self-care (01) ==
LOC: D.MRI 10:46
DX: G45.9 Transient cerebral ischemic attack, unspecified (principal)

== ENCOUNTER 2017-06-10 09:59 | Inpatient (IN) | payer MEDICAID ==
[~2017-06-10] VITALS: Ht 157.5 cm; Wt 101.6 kg
[~2017-06-10 09:59] MED LIST changes: -MEDROL DOSE PACK4 MG PO
[2017-06-10 11:59] LABS: APPEARANCE HAZY (CLEAR); BILIRUBIN NEGATIVE (NEGATIVE); COLOR YELLOW (YELLOW); GLUCOSE NEGATIVE (NEGATIVE); KETONE NEGATIVE (NEGATIVE); NITRITE NEGATIVE (NEGATIVE); PROTEIN NEGATIVE (NEGATIVE); UROBILINOGEN NORMAL (NORMAL)
[2017-06-10 12:01] LABS: BASOPHILS 0.2 % (0-2); EOSINOPHILS 2.7 % (0-7); HEMATOCRIT 46.1 % (36.0-48.0); IMMATURE GRANULOCYTES 0.3 % (0-5); LYMPHOCYTES 23.8 % (15-50); MCH 27.5 pg (26.0-34.0); MCHC 32.5 g/dL (31.0-37.0); MCV 84.6 fL (80.0-100.0); MEAN PLATELET VOLUME 9.9 fL (7.4-10.4); MONOCYTES 11.4 % (2-11); NEUTROPHILS 61.6 % (40-80); PLATELET COUNT 193 10x3/uL (130-400); RBC 5.45 10x6/uL (4.00-5.40); RDW 13.9 % (11.5-14.5); WBC 9.1 10x3/uL (4.8-10.8)
[2017-06-10 12:17] LABS: ALBUMIN 3.7 g/dL (3.4-5.0); ALKALINE PHOSPHATASE 103 U/L (46-116); ALT (SGPT) 26 U/L (10-68); APTT 32.9 SECONDS (22.8-39.4); CALC OSMOLALITY 278 mosm/kg (275-300); CALCIUM 9.9 mg/dL (8.5-10.1); CARBON DIOXIDE 27.9 mmol/L (21.0-32.0); CHLORIDE - SERUM 102 mmol/L (98-107); CREATINE KINASE 45 UL (21-215); CREATININE - SERUM 0.8 mg/dL (0.6-1.3); MAGNESIUM - SERUM 2.1 mg/dL (1.8-2.4); POTASSIUM - SERUM 3.5 mmol/L (3.5-5.1); PROTEIN - SERUM 7.1 g/dL (6.4-8.2); PROTIME 12.8 SECONDS (11.6-15.0); SODIUM 140 mmol/L (136-145); UREA NITROGEN 12 mg/dL (7-18); eGFR NON AFRICAN AMERICAN 78 mL/min (90-120)
[2017-06-10 12:20] LABS: GLUCOSE 103 mg/dL (74-106)
[2017-06-10 13:09] VITALS: BP 200/105; BMI 41.0
[2017-06-10 13:21] VITALS: BP 200/105
[2017-06-10 17:02] VITALS: BP 159/98
[2017-06-10 23:07] VITALS: BP 183/99
--- NOTE | 2017-06-11 03:46 | NUR ---
REC'D. SITTING UP ON SIDE OF BED CRYING. STATES I HAVE A BAD HEADACHE BECAUSE I HAVE A LGE. MASS ON MY BRAIN I'M AFRAID I'M GONNA .DENIES BLURRED OR DOUBLE VISION OR DOUBLE VISION JUST CONTINUES TO C/O BAD HEADACHE ALL THE TIME WILL CONTINUE TO MONITOR NEURO STATUS AND FOLLOW CURRENT PLAN OF CARE
--- NOTE | 2017-06-11 05:43 | NUR ---
MICROFABRICATION ENGINEER MANAGER IN ROOM ADMINISTERING MEDICAITON. SIDE RAILS X 2. BED LOW. CALL LIGHT IN REACH.
[2017-06-11 05:45] LABS: BASOPHILS 0 % (0-2); EOSINOPHILS 0 % (0-7); HEMATOCRIT 46.9 % (36.0-48.0); HEMOGLOBIN 15.2 g/dL (12-16); IMMATURE GRANULOCYTES 0.4 % (0-5); LYMPHOCYTES 8.4 % (15-50); MCH 27.1 pg (26.0-34.0); MCHC 32.4 g/dL (31.0-37.0); MCV 83.8 fL (80.0-100.0); MEAN PLATELET VOLUME 10.6 fL (7.4-10.4); NEUTROPHILS 88.2 % (40-80); PLATELET COUNT 211 10x3/uL (130-400); RDW 13.8 % (11.5-14.5); WBC 9.7 10x3/uL (4.8-10.8)
[2017-06-11 06:20] LABS: ALBUMIN 3.6 g/dL (3.4-5.0); ANION GAP 17.4 mmol/L (8-16); BILIRUBIN - TOTAL 0.6 mg/dL (0.2-1.3); CREATININE - SERUM 0.9 mg/dL (0.6-1.3); POTASSIUM - SERUM 3.4 mmol/L (3.5-5.1); PROTEIN - SERUM 7.3 g/dL (6.4-8.2)
--- NOTE | 2017-06-11 08:09 | NUR ---
PT WAS MEDICATED WITH MORPHIN FOR C/O MAGANA RATING 10/10 ON PAIN SCALE.
--- NOTE | 2017-06-11 08:16 | NUR ---
REC'D IN BED AWAKE AND ALERT. RESP EVEN AND UNLABORED WITH NO DISTRESS NOTED. C/O MAGANA RTING 04/07 WAS MEDICATED WITH MORPHINE PER ORDERS. ASSESSMENT COMPLETED. C/L IN REACH AT BEDSIDE.
[2017-06-11 08:33] VITALS: BP 149/81
--- NOTE | 2017-06-11 12:02 | NUR ---
PT WAS MEDICATED AT THIS TIME FOR C/O MAGANA RATING 10/10 WITH MORPHIN. C/L IN REACH A BEDSIDE.
[2017-06-11 12:14] VITALS: Ht 157.5 cm; Wt 101.6 kg
--- NOTE | 2017-06-11 13:03 | NUR ---
PT NOTE- PT HAS RECEIVED SEVERAL DOSES OF PAIN MED TODAY WITH RELIEF NOTED EACH TIME. FOR LUMBAR PUNCTURE THIS AFTERNOON AND THEN POSSIBLE DISCHARGE HOME. CALL LIGHT IN REACH
[2017-06-11] MEDS ORDERED: MEDROL DOSE PACK4 MG PO (16:23)
[2017-06-11 16:32] VITALS: BP 155/82
--- NOTE | 2017-06-11 18:26 | NUR ---
PT C/O MAGANA RATING 10/10 WAS MEDICATED WITH MORPHIN AT THIS TIME. C/L IN REACH AT BEDSIDE.
[2017-06-11 18:31] LABS: APPEARANCE - CSF CLEAR; RBC - CSF 0 cmm (0-0)
[2017-06-11 18:59] LABS: GLUCOSE - CSF 94 MG/DL (40-75); PROTEIN - CSF 40 MG/DL (12-60)
--- NOTE | 2017-06-11 19:24 | NUR ---
PT WAS DISCHARGE HOME WITH D/C INSTRUCTION AND WAS IN STABLE CONDITION UPON DISCHARGE WITH ALL PERSONAL BELONGS.
== END 2017-06-11 19:27 | disposition home or self-care (01) | DRG 55 ==
LOC: D.ER 09:59 → D.MS 11:10
PROVIDERS: Emergency Medicine; Specialist; ADMIT Family Medicine
PROC: 009U3ZX Drainage of Spinal Canal, Percutaneous Approach, Diagnostic (ICD-10-PCS; principal; 2017-06-11)
PROC: B01B1ZZ Fluoroscopy of Spinal Cord using Low Osmolar Contrast (ICD-10-PCS; 2017-06-11)
DX: D32.0 Benign neoplasm of cerebral meninges (principal); Z68.41 Body mass index [BMI] 40.0-44.9, adult; G44.53 Primary thunderclap headache; I25.10 Atherosclerotic heart disease of native coronary artery without angina pectoris; E66.9 Obesity, unspecified; R00.1 Bradycardia, unspecified

== ENCOUNTER 2017-07-01 09:45 | Emergency (ER) | payer MEDICAID ==
[2017-06-11 12:14] VITALS: BMI 41.0
[~2017-07-01 09:45] MED LIST changes: +MEDROL DOSE PACK4 MG PO
== END 2017-07-01 11:45 | disposition home or self-care (01) ==
LOC: D.ER 09:45
DX: R51 Headache (principal); D49.6 Neoplasm of unspecified behavior of brain; J01.90 Acute sinusitis, unspecified; I50.9 Heart failure, unspecified; J44.9 Chronic obstructive pulmonary disease, unspecified; I10 Essential (primary) hypertension; Z86.73 Personal history of transient ischemic attack (TIA), and cerebral infarction without residual deficits; Z99.81 Dependence on supplemental oxygen

== ENCOUNTER 2017-07-24 12:17 | Emergency (ER) | payer MEDICAID ==
[2017-06-11 12:14] VITALS: BMI 41.0
== END 2017-07-24 13:55 | disposition home or self-care (01) ==
LOC: D.ER 12:17
DX: R51 Headache (principal); I10 Essential (primary) hypertension; J44.9 Chronic obstructive pulmonary disease, unspecified

== ENCOUNTER 2017-09-02 11:00 | Emergency (ER) | payer MEDICAID ==
[2017-06-11 12:14] VITALS: BMI 41.0
== END 2017-09-02 15:19 | disposition home or self-care (01) ==
LOC: D.ER 11:00
DX: G43.909 Migraine, unspecified, not intractable, without status migrainosus (principal); F17.200 Nicotine dependence, unspecified, uncomplicated

== ENCOUNTER 2017-09-14 11:35 | Inpatient (IN) | payer MEDICAID ==
[~2017-09-14] VITALS: Ht 157.5 cm; Wt 103.6 kg
[2017-09-14 12:25] LABS: BASOPHILS 0.3 % (0-2); EOSINOPHILS 2.6 % (0-7); HEMATOCRIT 42.8 % (36.0-48.0); HEMOGLOBIN 13.6 g/dL (12-16); IMMATURE GRANULOCYTES 0.5 % (0-5); LYMPHOCYTES 21.6 % (15-50); MCHC 31.8 g/dL (31.0-37.0); MCV 84.9 fL (80.0-100.0); MEAN PLATELET VOLUME 9.4 fL (7.4-10.4); PLATELET COUNT 229 10x3/uL (130-400); RBC 5.04 10x6/uL (4.00-5.40); RDW 15.3 % (11.5-14.5); WBC 9.8 10x3/uL (4.8-10.8)
[2017-09-14 12:45] LABS: ALBUMIN 3.3 g/dL (3.4-5.0); ANION GAP 14.7 mmol/L (8-16); BILIRUBIN - TOTAL 0.37 mg/dL (0.2-1.3); CALCIUM 8.6 mg/dL (8.5-10.1); CARBON DIOXIDE 24.6 mmol/L (21.0-32.0); POTASSIUM - SERUM 3.3 mmol/L (3.5-5.1); PROTEIN - SERUM 6.8 g/dL (6.4-8.2)
[2017-09-14 13:24] LABS: INR 1.01 (0.85-1.17); PROTIME 12.9 SECONDS (11.6-15.0)
[2017-09-14 13:25] LABS: APTT 30.6 SECONDS (22.8-39.4); CKMB 1.6 U/L (0.0-3.6); CREATINE KINASE 67 UL (21-215); PRO BNP 271 pg/mL (0-125)
[2017-09-14 13:26] LABS: D-DIMER-QUANTITATIVE 0.29 ug/mLFEU (0.20-0.54)
[2017-09-14 13:27] LABS: TROPONIN-I < 0.017 ng/mL (0.000-0.060)
[2017-09-14 16:20] LABS: CKMB 1.1 U/L (0.0-3.6); CREATINE KINASE 64 UL (21-215)
[2017-09-14 16:25] LABS: TROPONIN-I < 0.017 ng/mL (0.000-0.060)
[2017-09-14] MEDS ORDERED: HYDROCODONE-APA1 TAB PO (17:06)
[2017-09-14] MEDS ORDERED: ZOFRAN4 MG PO (17:07)
[2017-09-14 17:30] VITALS: BP 116/69; Ht 157.5 cm; Wt 103.6 kg
[2017-09-14] MEDS ORDERED: TOPAMAX50 MG PO (18:09)
[2017-09-14] MEDS ORDERED: ZANAFLEX4 MG PO (18:09)
[2017-09-14 20:00] VITALS: BP 139/76
[2017-09-14 22:00] LABS: CKMB 1.5 U/L (0.0-3.6); CREATINE KINASE 72 UL (21-215)
[2017-09-14 22:14] LABS: TROPONIN-I < 0.017 ng/mL (0.000-0.060)
[2017-09-15 04:17] LABS: BASOPHILS 0.1 % (0-2); EOSINOPHILS 0 % (0-7); HEMATOCRIT 39.6 % (36.0-48.0); HEMOGLOBIN 12.6 g/dL (12-16); IMMATURE GRANULOCYTES 0.4 % (0-5); LYMPHOCYTES 10.8 % (15-50); MCH 27.1 pg (26.0-34.0); MCHC 31.8 g/dL (31.0-37.0); MCV 85.2 fL (80.0-100.0); MONOCYTES 1.6 % (2-11); NEUTROPHILS 87.1 % (40-80); PLATELET COUNT 230 10x3/uL (130-400); RBC 4.65 10x6/uL (4.00-5.40); RDW 15.4 % (11.5-14.5)
[2017-09-15 04:47] LABS: ALBUMIN 3.1 g/dL (3.4-5.0); ALKALINE PHOSPHATASE 117 U/L (46-116); ALT (SGPT) 28 U/L (10-68); BILIRUBIN - TOTAL 0.23 mg/dL (0.2-1.3); CALC OSMOLALITY 278 mosm/kg (275-300); CHLORIDE - SERUM 101 mmol/L (98-107); CKMB 1.6 U/L (0.0-3.6); CREATINE KINASE 70 UL (21-215); CREATININE - SERUM 1.3 mg/dL (0.6-1.3); GLUCOSE 282 mg/dL (74-106); POTASSIUM - SERUM 3.3 mmol/L (3.5-5.1); PROTEIN - SERUM 6.5 g/dL (6.4-8.2); SODIUM 135 mmol/L (136-145); UREA NITROGEN 9 mg/dL (7-18); eGFR NON AFRICAN AMERICAN 45 mL/min (90-120)
[2017-09-15 04:48] LABS: CARBON DIOXIDE 18.2 mmol/L (21.0-32.0); TROPONIN-I < 0.017 ng/mL (0.000-0.060)
[2017-09-15 09:21] VITALS: BP 149/83
[2017-09-15 13:01] VITALS: BP 150/80
[2017-09-15 17:36] VITALS: BP 177/97
[2017-09-15 19:00] VITALS: BP 169/84
[2017-09-16] VITALS: BP 102/65
[2017-09-16 04:00] VITALS: BP 181/95
[2017-09-16 08:41] VITALS: BP 176/96
[2017-09-16 12:01] VITALS: BP 160/70
[2017-09-16 16:09] VITALS: BP 145/81
[2017-09-16 19:00] VITALS: BP 150/73
[2017-09-17 02:33] VITALS: BP 177/95
[2017-09-17 06:02] VITALS: BP 215/104
[2017-09-17 08:14] VITALS: BP 152/73
[2017-09-17 11:29] VITALS: BP 192/86
[2017-09-17 15:16] VITALS: BP 173/80
[2017-09-17 21:00] VITALS: BP 228/105
[2017-09-18] VITALS (7 sets, daily range): BP systolic 132–194; BP diastolic 74–95
[2017-09-18 02:09] LABS: APPEARANCE CLEAR (CLEAR); BILIRUBIN NEGATIVE (NEGATIVE); COLOR YELLOW (YELLOW); GLUCOSE NEGATIVE (NEGATIVE); KETONE NEGATIVE (NEGATIVE); NITRITE NEGATIVE (NEGATIVE); PROTEIN NEGATIVE (NEGATIVE); UROBILINOGEN NORMAL (NORMAL)
[2017-09-18] MEDS ORDERED: EDARBYCLOR 40-1 EAC1 PO (04:59)
[2017-09-18] MEDS ORDERED: NORVASC5 MG PO (04:59)
[2017-09-19 04:00] VITALS: BP 164/87
[2017-09-19 08:17] LABS: MAGNESIUM - SERUM 2.4 mg/dL (1.8-2.4); PHOSPHOROUS 3.8 mg/dL (2.5-4.9); POTASSIUM - SERUM 4.1 mmol/L (3.5-5.1)
[2017-09-19 09:03] VITALS: BP 197/101
[2017-09-19 11:55] VITALS: BP 162/85
[2017-09-19 16:00] VITALS: BP 136/116
[2017-09-19 21:44] VITALS: BP 162/105
[2017-09-20 00:30] VITALS: BP 119/79
[2017-09-20 04:30] VITALS: BP 152/93
[2017-09-20 07:05] LABS: BASOPHILS 0.2 % (0-2); EOSINOPHILS 0.1 % (0-7); HEMATOCRIT 50.2 % (36.0-48.0); HEMOGLOBIN 16.4 g/dL (12-16); IMMATURE GRANULOCYTES 2.6 % (0-5); LYMPHOCYTES 13.6 % (15-50); MCH 27.4 pg (26.0-34.0); MCHC 32.7 g/dL (31.0-37.0); MCV 83.9 fL (80.0-100.0); MEAN PLATELET VOLUME 9.5 fL (7.4-10.4); MONOCYTES 6.9 % (2-11); NEUTROPHILS 76.6 % (40-80); RBC 5.98 10x6/uL (4.00-5.40); RDW 15.9 % (11.5-14.5); WBC 16.5 10x3/uL (4.8-10.8)
[2017-09-20 07:16] LABS: PLATELET COUNT 299 10x3/uL (130-400)
[2017-09-20 07:32] LABS: ALBUMIN 3.8 g/dL (3.4-5.0); ANION GAP 19.4 mmol/L (8-16); BILIRUBIN - TOTAL 0.4 mg/dL (0.2-1.3); CALCIUM 8.9 mg/dL (8.5-10.1); CARBON DIOXIDE 22.3 mmol/L (21.0-32.0); CREATININE - SERUM 1.3 mg/dL (0.6-1.3); POTASSIUM - SERUM 4.7 mmol/L (3.5-5.1)
[2017-09-20 09:21] VITALS: BP 140/91
[2017-09-20 13:50] VITALS: BP 140/69
[2017-09-20 16:59] VITALS: BP 142/83
[2017-09-20 20:30] VITALS: BP 153/108
[2017-09-21 00:30] VITALS: BP 100/68
[2017-09-21 04:30] VITALS: BP 146/81
[2017-09-21 04:44] LABS: BASOPHILS 0.1 % (0-2); EOSINOPHILS 0.9 % (0-7); IMMATURE GRANULOCYTES 3.8 % (0-5); MCH 27.7 pg (26.0-34.0); MCHC 32.7 g/dL (31.0-37.0); MCV 84.9 fL (80.0-100.0); MEAN PLATELET VOLUME 9.7 fL (7.4-10.4); MONOCYTES 10.9 % (2-11); NEUTROPHILS 61.3 % (40-80); PLATELET COUNT 303 10x3/uL (130-400); RBC 5.77 10x6/uL (4.00-5.40); RDW 16.3 % (11.5-14.5); WBC 15.1 10x3/uL (4.8-10.8)
[2017-09-21 05:05] LABS: ALBUMIN 3.5 g/dL (3.4-5.0); BILIRUBIN - TOTAL 0.55 mg/dL (0.2-1.3); CALCIUM 8.8 mg/dL (8.5-10.1); CREATININE - SERUM 1.3 mg/dL (0.6-1.3); POTASSIUM - SERUM 4.7 mmol/L (3.5-5.1); PROTEIN - SERUM 7.5 g/dL (6.4-8.2)
[2017-09-21 05:17] LABS: ANION GAP 15.7 mmol/L (8-16)
[2017-09-21 08:34] VITALS: BP 181/110
[2017-09-21 11:39] VITALS: BP 100/62
[2017-09-21 16:20] VITALS: BP 169/91
[2017-09-21 21:00] VITALS: BP 180/75
[2017-09-22 05:30] LABS: BASOPHILS 0.1 % (0-2); EOSINOPHILS 0.1 % (0-7); HEMATOCRIT 47.8 % (36.0-48.0); HEMOGLOBIN 15.9 g/dL (12-16); IMMATURE GRANULOCYTES 1.5 % (0-5); LYMPHOCYTES 13.4 % (15-50); MCH 27.7 pg (26.0-34.0); MCHC 33.3 g/dL (31.0-37.0); MCV 83.3 fL (80.0-100.0); MEAN PLATELET VOLUME 9.8 fL (7.4-10.4); MONOCYTES 8.4 % (2-11); NEUTROPHILS 76.5 % (40-80); PLATELET COUNT 296 10x3/uL (130-400); RBC 5.74 10x6/uL (4.00-5.40); RDW 15.6 % (11.5-14.5); WBC 15.3 10x3/uL (4.8-10.8)
[2017-09-22 06:01] LABS: ALBUMIN 3.3 g/dL (3.4-5.0); ANION GAP 16.3 mmol/L (8-16); BILIRUBIN - TOTAL 0.67 mg/dL (0.2-1.3); CALCIUM 8.6 mg/dL (8.5-10.1); CARBON DIOXIDE 29.9 mmol/L (21.0-32.0); CREATININE - SERUM 1.2 mg/dL (0.6-1.3); POTASSIUM - SERUM 4.2 mmol/L (3.5-5.1); PROTEIN - SERUM 7.1 g/dL (6.4-8.2)
[2017-09-22 11:47] VITALS: BP 204/107
[2017-09-23] VITALS: BP 160/86
[2017-09-23 05:18] VITALS: BP 158/80
[2017-09-23 09:24] LABS: BASOPHILS 0 % (0-2); EOSINOPHILS 0.2 % (0-7); HEMOGLOBIN 16.3 g/dL (12-16); IMMATURE GRANULOCYTES 0.8 % (0-5); LYMPHOCYTES 15.7 % (15-50); MCH 27.7 pg (26.0-34.0); MCHC 33.3 g/dL (31.0-37.0); MCV 83.3 fL (80.0-100.0); MEAN PLATELET VOLUME 9.6 fL (7.4-10.4); MONOCYTES 11.5 % (2-11); NEUTROPHILS 71.8 % (40-80); PLATELET COUNT 268 10x3/uL (130-400); RBC 5.88 10x6/uL (4.00-5.40); RDW 15.4 % (11.5-14.5); WBC 15.9 10x3/uL (4.8-10.8)
[2017-09-23 09:43] LABS: ALBUMIN 3.2 g/dL (3.4-5.0); ANION GAP 9.5 mmol/L (8-16); BILIRUBIN - TOTAL 0.76 mg/dL (0.2-1.3); CALCIUM 8.2 mg/dL (8.5-10.1); CARBON DIOXIDE 34.3 mmol/L (21.0-32.0); CREATININE - SERUM 1.1 mg/dL (0.6-1.3); POTASSIUM - SERUM 3.8 mmol/L (3.5-5.1); PROTEIN - SERUM 6.7 g/dL (6.4-8.2)
[2017-09-23 10:52] VITALS: BP 173/74
[2017-09-23] MEDS ORDERED: STERAPRED DS 1010 MG PO (15:04)
[2017-09-23 16:25] VITALS: BP 119/78
== END 2017-09-23 16:39 | disposition home or self-care (01) | DRG 190 ==
LOC: D.ER 11:35 → D.EDHOLD 14:59 → D.M2 14:59 → OBSVTIME 09-15 14:59 → D.M2 09-15 15:37
PROVIDERS: Family Medicine; Family Medicine Adult Medicine
DX: J44.0 Chronic obstructive pulmonary disease with (acute) lower respiratory infection (principal); J18.9 Pneumonia, unspecified organism; Z68.41 Body mass index [BMI] 40.0-44.9, adult; J44.1 Chronic obstructive pulmonary disease with (acute) exacerbation; I11.0 Hypertensive heart disease with heart failure; I50.9 Heart failure, unspecified; I25.10 Atherosclerotic heart disease of native coronary artery without angina pectoris; F41.9 Anxiety disorder, unspecified; F32.9 Major depressive disorder, single episode, unspecified; K59.00 Constipation, unspecified; E78.5 Hyperlipidemia, unspecified; E66.9 Obesity, unspecified; J20.9 Acute bronchitis, unspecified

== ENCOUNTER 2017-12-23 11:22 | Outpatient (CLI) | payer MEDICAID ==
[~2017-12-23] VITALS: Ht 154.9 cm; Wt 98.2 kg
--- NOTE | ~2017-12-23 | HEMODYNAMI ---
PATIENT:ADONIS YEE MEDICAL RECORD: [id number] : 60 LOCATION:[facility] ADMISSION DATE: 12/23/17 Generatedon:12/24/20178:13 Patient name: ADONIS YEE Patient #: [id number] : 1960 Date of study: 12/23/2017 Page: Of Hemodynamic Procedure Report Patient Data Patient Demographics Procedure consent was obtained First Name: ADONIS Gender: Female Last Name: JOSELITO : 1960 Middle Initial: CORINA Age: 57 year(s) Patient #: [id number] Race: SSN: [id number] Additional ID: [id number] Contact details Address: [address] [place] [address] State: [place] City: [facility] Zip code: [address] Past Medical History Allergies Allergen Reaction Date Comments Reported Other allergy 11/22/2015 Red Dye in [place] Admission Admission Data Admission Date: 12/23/2017 Admission Time: 11:22 Arrival Date: 12/23/2017 Arrival Time: 0:00 Admit Source: Other Insurance Payor: Medicaid Height (in.): 62 BSA: 1.98 (m2) Height (cm.): 157.48 BMI: 39.51 (kg/m2) Weight (lbs.): 216 Weight (kg.): 97.98 Procedure Procedure Types Cath Procedure Diagnostic Procedure LHC LHC w/Coronaries Peripheral Cath Diagnostic Procedure Abd/Extremity Aortagram Procedure Description Procedure Date Procedure Date: 12/23/2017 Procedure Start Time: 13:16 Procedure End Time: 13:44 Procedure Staff Name Function Magno Reddy RT Monitor Heidi Oseguera RT Scrub Brissa Salmeron RN Nurse Donis Jackman MD Performing Physician Procedure Data Cath Procedure Fluoroscopy Diagnostic fluoroscopy Total fluoroscopy Time: 4 time: 4 min min Diagnostic fluoroscopy Total fluoroscopy dose: dose: 1053 mGy 1053 mGy Contrast Material Contrast Material Type Amount (ml) Isovue 300 84 Entry Location Entry Primary Successful Side Size Upsize Upsize Entry Closure Succes sful Closure Location (Fr) 1 (Fr) 2 (Fr) Remarks Device Remarks Femoral Right 5 Fr Exoseal artery Estimated blood loss: 10 ml Diagnostic catheters Device Type Used For End Catheter Placement MULTIPACK JL 4.0 5Fr Procedure catheter DIAGNOSTIC AL 1 5Fr Procedure catheter ([id number]) MULTIPACK 3DRC 5Fr Procedure catheter MULTIPACK Pigtail 5 Fr Procedure catheter Procedure Complications No complications Procedure Medications Medication Administration Route Dosage Oxygen NC 2 l/min Lidocaine 2% added to field 20 Heparin Flush Bag added to field 2 bags (1000units/500ml NS) 0.9% NaCl I.V. 100 ml/hr Versed I.V. 2 mg Fentanyl I.V. 100 mcg Versed I.V. 2 mg Fentanyl I.V. 50 mcg Versed I.V. 1 mg Fentanyl I.V. 50 mcg Versed I.V. 1 mg Fentanyl I.V. 50 mcg Fentanyl I.V. 50 mcg Versed I.V. 1 mg Versed I.V. 1 mg Hemodynamics Rest BSA: 1.98 (m2) O2 Consumption: Estimated: 183.79 (ml/min) O2 Consumption indexed : Estimated:92.82 (ml/min/m) Heart Rate: 62 (bpm) Pressure Samples Time Site Value (mmHg) Purpose Heart Use Rate(bpm) 13:19 AO 141/106(122) Snapshot 65 13:20 AO 126/98(113) Snapshot 64 13:28 LV 136/9,22 Snapshot 77 13:28 LV 169/8,23 Snapshot 77 13:28 LV 178/3,15 Pullback 77 13:28 AO 166/87(115) Pullback 77 Gradients Valve Time Site 1 Site 2 Mean SEP/DFP Peak To Heart Use (mmHg) (sec/min) Peak Rate (mmHg) (bpm) Aortic 13:28 LV AO 19 20 12 77 178/3,15 166/87(115) Calculations Valve P-P Mean Valve Index Valve Source Name Gradient Area Flow (cm2) Aortic 12 19 12 19 Snapshots Pre Cath Intra NCS Post Cath Vital Signs Time Heart Resp SPO2 etCO2 NIBP (mmHg) Rhythm Pain Sedation Rate (ipm) (%) (mmHg) Status Level (bpm) 12:55:45 64 21 98 25.4 No Cuff NSR 0 (11) 10(A) , No pain 12:59:57 61 16 94 20.9 180/107(153) NSR 0 (11) 10(A) , No pain 13:05:50 62 17 92 46.3 185/116(151) NSR 0 (11) 10(A) , No pain 13:10:03 74 13 92 41.9 172/102(137) NSR 0 (11) 10(A) , No pain 13:16:01 71 18 93 35.9 170/105(147) NSR 0 (11) 10(A) , No pain 13:24:08 70 20 93 42.6 184/101(139) NSR 0 (11) 10(A) , No pain Medications Time Medication Route Dose Verified Delivered Reason Notes Effe ctiveness by by 12:53:32 Oxygen NC 2 Donis Buffie used for l/min Gasper Salmeron sales specialist 12:53:42 Lidocaine 2% added 20ml Donis Donis for local to vial Gasper Jackman MD anesthetic field 12:53:49 Heparin Flush added 2 Donis Donis used for Bag to bags Gasper Jackman MD procedure (1000units/500ml field NS) 12:53:57 0.9% NaCl I.V. 100 Donis Buffie Per ml/hr Gasper Salmeron RN physician 13:05:42 Versed I.V. 2 mg Donis Buffie for Gasper Salmeron RN sedation 13:05:48 Fentanyl I.V. 100 Donis Buffie for mcg Gasper Salmeron RN sedation 13:08:43 Versed I.V. 2 mg Donis Buffie for Gasper Salmeron RN sedation 13:08:47 Fentanyl I.V. 50 Donis Buffie for mcg Gasper Salmeron RN sedation 13:11:26 Versed I.V. 1 mg Donis Buffie for Gasper Salmeron RN sedation 13:11:30 Fentanyl I.V. 50 Donis Buffie for mcg Gasper Salmeron RN sedation 13:15:20 Fentanyl I.V. 50 Donis Buffie for mcg Gasper Salmeron RN sedation 13:15:57 Versed I.V. 1 mg Donis Buffie for Gasper Salmeron RN sedation 13:18:23 Fentanyl I.V. 50 Donis Buffie for mcg Gasper Salmeron RN sedation 13:18:28 Versed I.V. 1 mg Donis Buffie for Jackman MD Salmeron RN sedation 13:24:16 Versed I.V. 1 mg Donis Brumfield for Gasper Salmeron RN sedation Procedure Log Time Note 12:22:26 Diagnostic Cath Status : Elective 12:22:50 Brissa Salmeron RN sent for patient. Start room use. 12:22:51 Time tracking: Regular hours (M-F 7:00 - 5:00) 12:22:55 Plan of Care:Hemodynamics will remain stable., Cardiac rhythm will remain stable., Comfort level will be maintained., Respiratory function will remain adequate., Patient/ family verbilizes understanding of procedure., Procedure tolerated without complication., Recovers from procedure without complications.. 12:36:38 Admit Source: Other 12:36:40 Arrival Date: 12/23/2017 12:00:00 AM 12:36:49 Insurance Payor : Medicaid 12:37:19 Patient Height : 62 inches 12:37:20 Patient Weight : 216 lbs 12:41:34 Patient received from Pre/Post Procedure Room to [facility] 2 Alert and oriented. Tansferred to table in Supine position. 12:41:35 Warm blankets applied, and kallie hugger turned on for patient comfort. 12:41:36 Correct patient and procedure confirmed by team. 12:41:39 Signed procedure consent form obtained from patient. 12:41:40 ECG and BP/O2 sat monitors applied to patient. 12:53:32 Oxygen 2 l/min NC was administered by Brissa Salmeron RN; used for procedure; 12:53:42 Lidocaine 2% 20ml vial added to field was administered by Donis Jackman MD; for local anesthetic; 12:53:49 Heparin Flush Bag (1000units/500ml NS) 2 bags added to field was administered by Donis Jackman MD; used for procedure; 12:53:57 0.9% NaCl 100 ml/hr I.V. was administered by Brissa Salmeron RN; Per physician; 12:54:11 Vital chart was started 12:55:06 Vital chart was stopped 12:57:55 Baseline sample Acquired. 12:58:10 Rhythm: sinus rhythm 12:58:11 Full Disclosure recording started 12:58:19 H&P Date Dictated: 12/15/2017 Within 30 days and on chart., H&P Addendum completed by physician on day of procedure. (MUST COMPLETE FOR ALL OUTPATIENTS). 12:58:20 Pre-op teaching completed and patient verbalized understanding. 12:58:20 Pre-procedure instructions explained to patient. 12:58:22 Family unavailable. 12:58:24 Patient NPO since Midnight. 12:58:26 Is the patient allergic to Iodine/contrast media? No. 12:58:30 Is patient on blood thinner?No 12:58:57 Pt's last dose of Plavix was 12/18/17. 12:59:01 Patient diabetic? No. 12:59:06 Previous problem with sedation/anesthesia? No ? 12:59:13 Snore? Yes 12:59:15 Sleep apnea? No 12:59:16 Opens mouth fully? Yes 12:59:16 Deviated septum? No 12:59:17 Sticks out tongue? Yes 12:59:21 Airway obstruction? Yes COPD 12:59:31 Dentures? Yes IN TIGHT 12:59:35 Pre procedure: right dorsailis pedis pulse 1+ Palpable, but thready & weak; easily obliterated 12:59:37 Patient pain scale 0/10 ?. 12:59:44 IV patent on arrival in left antecubital with 0.9% NaCl at O. 13:00:16 Lab results completed and on chart. 13:00:21 Right groin area was prepped with chlora-prep and draped in sterile fashion 13:00:22 Alarms reviewed by R. N. 13:00:23 Sharps counted by scrub and verified by R.N. 13:04:31 --------ALL STOP TIME OUT------ 13:04:32 Final Timeout: patient, procedure, and site verified with staff and physician. All members of the team are in agreement. 13:04:41 Right groin site verified by team. 13:04:45 Physical assessment completed. ASA score P 2 - A patient with mild systemic disease as per Donis Jackman MD. 13:04:49 Sedation plan: IV Moderate Sedation Medication:Versed, Fentanyl 13:05:42 Versed 2 mg I.V. was administered by Brissa Salmeron RN; for sedation; 13:05:48 Fentanyl 100 mcg I.V. was administered by Brissa Salmeron RN; for sedation; 13:08:43 Versed 2 mg I.V. was administered by Brissa Salmeron RN; for sedation; 13:08:47 Fentanyl 50 mcg I.V. was administered by Brissa Salmeron RN; for sedation; 13:11:26 Versed 1 mg I.V. was administered by Brissa Salmeron RN; for sedation; 13:11:30 Fentanyl 50 mcg I.V. was administered by Brissa Salmeron RN; for sedation; 13:15:20 Fentanyl 50 mcg I.V. was administered by Brissa Salmeron RN; for sedation; 13:15:47 Use device set Femoral Dx 13:15:51 Tegaderm 4 x 4 (1626W) opened to sterile field. 13:15:52 ACIST Manifold (40008) opened to sterile field. 13:15:53 ACIST Hand Control (84200) opened to sterile field. 13:15:54 Bag Decanter (2002S) opened to sterile field. 13:15:54 ACIST Syringe (15046) opened to sterile field. 13:15:55 DIAGNOSTIC WIRE .035 260cm J wire (738996) opened to sterile field. 13:15:55 Medline Cath Pack ([id number]) opened to sterile field. 13:15:57 Versed 1 mg I.V. was administered by Brissa Salmeron RN; for sedation; 13:15:57 DIAGNOSTIC Multipack 5Fr catheter set (SD0306) opened to sterile field. 13:15:59 SHEATH Prelude 5Fr 0.035 (XSS-8N-63-035) opened to sterile field. 13:16:45 Procedure started. 13:16:56 Local anesthetic to right femoral artery with Lidocaine 2% by Donis Jackman MD.INITIAL ACCESS ONLY 13:18:14 A 5 Fr sheath was inserted into the Right Femoral artery 13:18:23 Fentanyl 50 mcg I.V. was administered by Brissa Salmeron RN; for sedation; 13:18:28 Versed 1 mg I.V. was administered by Brissa Salmeron RN; for sedation; 13:19:06 A MULTIPACK JL 4.0 5Fr catheter was advanced over the wire and used for Procedure. 13:20:06 LCA angiography performed. 13:22:25 Catheter exchanged over wire. 13:22:30 A MULTIPACK 3DRC 5Fr catheter was advanced over the wire and used for Procedure. 13:23:00 Catheter exchanged over wire. 13:24:16 Versed 1 mg I.V. was administered by Brissa Salmeron RN; for sedation; 13::42 A DIAGNOSTIC AL 1 5Fr catheter ([id number]) was advanced over the wire and used for Procedure. 13:25:41 RCA angiography performed. 13::00 Catheter exchanged over wire. 13:27:00 A MULTIPACK Pigtail 5 Fr catheter was advanced over the wire and used for Procedure. 13::54 Zero performed for pressure channel P1 13::25 LV angiography performed. 13::42 LV gram done using CONNOLLY 13:28:46 EF : 60 % 13:28:48 LV hemodynamics recorded. 13:28:51 Injector settings: Ml/sec: 10, Volume: 20, 13:30:34 EXOSEAL 5Fr (EX500) opened to sterile field. 13:32:00 Abdominal Aortagram was performed. 13:32:05 Injector settings: Ml/sec: 10, Volume: 20, 13:33:29 Catheter exchanged over wire. 13:33:46 Sheath removed intact; hemostasis achieved with Exoseal to the Right Femoral artery. 13:33:48 Procedure ended.(Physican Out) 13:35:04 Procedure type changed to Cath procedure, Diagnostic procedure, LHC, LHC w/Coronaries, Peripheral Cath Diagnostic Procedure, Abd/Extremity, Aortagram 13:35:35 Fluoroscopy time 04.00 minutes. 13:35:39 Fluoroscopy dose: 1053 mGy 13:35:39 Flurop Dose total: 1053 13:35:49 Contrast amount:Isovue 300 84ml. 13:35:50 Sharps counted by scrub and verified by R.N. 13:35:52 Insertion/operative site no bleeding no hematoma. 13:35:54 Post-op/insertion site Right Femoral artery dressed using a 4 x 4 and Tegaderm. 13:35:55 Post Procedure Pulses reassessed and unchanged 13:35:57 Post-procedure physical assessment completed. ASA score P 2 - A patient with mild systemic disease as per Donis Jackman MD. 13:35:59 Post procedure rhythm: unchanged. 13:36:02 Estimated blood loss: 10 ml 13:36:04 Patient needs reinforcement of post procedure teaching. 13:36:04 Post procedure instruction explained to patient.Patient verbalizes understanding. 13:36:07 Procedure and supply charges have been captured, reviewed, submitted and are correct. 13:36:10 Procedure Complication : No complications 13:43:35 See physician's report for complete and final results. 13:43:51 Report given to Pre/Post Procedure Room. 13:43:54 Patient transfered to Pre/Post Procedure Room with Stretcher. 13:44:16 Full Disclosure recording stopped 13:44:16 Procedure ended. 13:45:07 End room use (Document Last) Device Usage Item Name Manufacture Quantity Catalog Number Hospital Part Current M inimal Lot# / Charge Number Stock Stock Serial# Code Tegaderm 4 x 4 3M 1 1626W [id number] 620891 [id number] 5 (1626W) ACIST Manifold Acist 1 50101 850923 028899 383648 5 (75264) [employer] ACIST Hand Acist 1 96129 192252 730075 664433 5 Control (91917) [employer] ACIST Syringe Acist 1 99763 161297 924290 159204 2 0 (32981) [employer] Bag Decanter Microtek 1 2001S 292389 02960 405052 5 (2002S) Medical Inc. Medline Cath Cardinal 1 [id number] 114346 05105 035148 5 Pack Health ([id number]) DIAGNOSTIC WIRE [facility] [place] 1 561924 209173 028702 193591 3 0 .035 260cm J wire (853662) DIAGNOSTIC Cardinal 1 PI1943 026917 21898 490958 3 0 Multipack 5Fr Health catheter set (OU8540) SHEATH Prelude Merit 1 [id number]-[id number] 065516 802371 634941 5 5Fr 0.035 Medical ([id number]-0I-02-035) MULTIPACK JL Cardinal 1 748658 5 4.0 5Fr Health catheter DIAGNOSTIC AL 1 Cardinal 1 [id number] 025631 627477 660753 1 5 5Fr catheter Health (369461D) MULTIPACK 3DRC Cardinal 1 454237 5 5Fr catheter Health EXOSEAL 5Fr Cardinal 1 EX500 475405 494081 418793 1 0 (EX500) Health MULTIPACK Cardinal 1 007186 5 Pigtail 5 Fr Health catheter Signature Audit [place] Stage Time Signature Unsigned Intra-Procedure 12/23/2017 Magno Reddy RT(R) 1:46:03 PM RT(R) 12/24/2017 8:09:51 AM Intra-Procedure 12/24/2017 Magno Reddy 8:13:46 AM RT(R) Signatures Monitor : Magno Reddy RT Signature : Date : Time : [place] [id number] [place] [address]
[~2017-12-23 11:22] MED LIST changes: +EDARBYCLOR 40-1 EAC1 PO; +HYDROCODONE-APA1 TAB PO; +NORVASC5 MG PO; +TOPAMAX50 MG PO; +ZANAFLEX4 MG PO; +ZOFRAN4 MG PO
[2017-12-23] MEDS ORDERED: LIPITOR20 MG PO (11:35)
[2017-12-23] MEDS ORDERED: ATIVAN2 MG PO (11:36)
[2017-12-23] MEDS ORDERED: CELEXA40 MG PO (11:37)
[2017-12-23] MEDS ORDERED: SYMBICORT 16010.2 GM INH (11:38)
[2017-12-23] MEDS ORDERED: ANORO ELLIPTA1 EACH INH (11:40)
[2017-12-23 11:48] VITALS: BP 184/96; Ht 154.9 cm; Wt 98.2 kg
[2017-12-23 12:07] LABS: ANION GAP 16.4 mmol/L (8-16); CALCIUM 9.6 mg/dL (8.5-10.1); CARBON DIOXIDE 23.2 mmol/L (21.0-32.0); POTASSIUM - SERUM 3.6 mmol/L (3.5-5.1)
[2017-12-23 12:36] LABS: BASOPHILS 0.2 % (0-2); EOSINOPHILS 1.8 % (0-7); HEMATOCRIT 47.2 % (36.0-48.0); HEMOGLOBIN 15.1 g/dL (12-16); IMMATURE GRANULOCYTES 0.4 % (0-5); LYMPHOCYTES 20.8 % (15-50); MCH 27.2 pg (26.0-34.0); MONOCYTES 6.3 % (2-11); NEUTROPHILS 70.5 % (40-80); PLATELET COUNT 256 10x3/uL (130-400); RBC 5.55 10x6/uL (4.00-5.40); RDW 13.8 % (11.5-14.5); WBC 12.3 10x3/uL (4.8-10.8)
== END 2017-12-23 16:15 | disposition home or self-care (01) ==
LOC: D.CATH 11:22
PROVIDERS: Internal Medicine Cardiovascular Disease
DX: I25.119 Atherosclerotic heart disease of native coronary artery with unspecified angina pectoris (principal); Z95.5 Presence of coronary angioplasty implant and graft; Z01.812 Encounter for preprocedural laboratory examination

== ENCOUNTER 2018-01-15 10:41 | Emergency (ER) | payer MEDICAID ==
[~2018-01-15] VITALS: Ht 157.5 cm; Wt 104.5 kg
[~2018-01-15 10:41] MED LIST changes: +LIPITOR20 MG PO
[2018-01-15 10:53] VITALS: Ht 157.5 cm; Wt 104.5 kg
[2018-01-15] MEDS ORDERED: TOPAMAX100 MG PO (10:55)
[2018-01-15] MEDS ORDERED: NEURONTIN 300300 MG PO (10:56)
[2018-01-15] MEDS ORDERED: ZOFRAN ODT4 MG/UDTAB PO (10:56)
[2018-01-15 11:17] LABS: BASOPHILS 0.4 % (0-2); EOSINOPHILS 1.5 % (0-7); HEMATOCRIT 41.9 % (36.0-48.0); HEMOGLOBIN 13.6 g/dL (12-16); IMMATURE GRANULOCYTES 1.1 % (0-5); LYMPHOCYTES 25.5 % (15-50); MCH 27.2 pg (26.0-34.0); MCHC 32.5 g/dL (31.0-37.0); MCV 83.8 fL (80.0-100.0); MEAN PLATELET VOLUME 9.1 fL (7.4-10.4); MONOCYTES 6.9 % (2-11); NEUTROPHILS 64.6 % (40-80); PLATELET COUNT 211 10x3/uL (130-400); RDW 14.3 % (11.5-14.5); WBC 11.1 10x3/uL (4.8-10.8)
[2018-01-15 11:45] LABS: ALBUMIN 3.4 g/dL (3.4-5.0); CALC OSMOLALITY 287 mosm/kg (275-300); CALCIUM 8.6 mg/dL (8.5-10.1); CARBON DIOXIDE 27.5 mmol/L (21.0-32.0); CHLORIDE - SERUM 108 mmol/L (98-107); CREATININE - SERUM 0.8 mg/dL (0.6-1.3); GLUCOSE 102 mg/dL (74-106); POTASSIUM - SERUM 3.1 mmol/L (3.5-5.1); SODIUM 145 mmol/L (136-145); UREA NITROGEN 11 mg/dL (7-18); eGFR NON AFRICAN AMERICAN 78 mL/min (90-120)
[2018-01-15 12:05] LABS: ALKALINE PHOSPHATASE 149 U/L (46-116); ALT (SGPT) 87 U/L (10-68)
[2018-01-15 12:06] LABS: BILIRUBIN - TOTAL 0.37 mg/dL (0.2-1.3); PROTEIN - SERUM 6.9 g/dL (6.4-8.2)
[2018-01-15 12:10] LABS: PRO BNP 515 pg/mL (0-125)
[2018-01-15] MEDS ORDERED: TYLENOL W/CODEI1 TAB PO (14:32)
[2018-01-15] MEDS ORDERED: ZPAK PO (14:32)
[2018-01-15] MEDS ORDERED: DIFLUCAN100 MG PO (16:02)
[2018-01-15 16:12] VITALS: BP 150/90
== END 2018-01-15 16:17 | disposition home or self-care (01) ==
LOC: D.ER 10:41
PROVIDERS: Emergency Medicine
DX: R06.02 Shortness of breath (principal); J44.9 Chronic obstructive pulmonary disease, unspecified; I10 Essential (primary) hypertension; Z86.79 Personal history of other diseases of the circulatory system; Z99.81 Dependence on supplemental oxygen; F41.9 Anxiety disorder, unspecified; J02.9 Acute pharyngitis, unspecified

== ENCOUNTER 2018-02-09 12:35 | Observation (INO) | payer MEDICAID ==
[~2018-02-09] VITALS: Ht 157.5 cm; Wt 107.8 kg
--- NOTE | ~2018-02-09 | EC ---
PATIENT:ADONIS YEE DATE OF SERVICE: 02/09/18 SEX: F MEDICAL RECORD: [id number] DATE OF : 60 LOCATION:D.M2 D.211 AGE OF PATIENT: 57 ADMISSION DATE: 02/09/18 REFERRING PHYSICIAN: INTERPRETING PHYSICIAN: MARYURI MORROW MD ECHOCARDIOGRAM REPORT ECHO CHARGES 4 ECHO COMPLETE Date: 02/10 CLINICAL DIAGNOSIS: SOB/BILATERAL EDEMA ECHOCARDIOGRAPHIC MEASUREMENTS (adult normal given) AC root (d.<3.7cm) 3.1 cm LV Septum d (<1.2 cm> 1.9 cm Valve Excursion 1.8 cm LV Septum (systole) 2.4 cm Left Atria (s.<4.0cm> 3.3 cm LVPW d(<1.2cm) 1.4 cm RV (d.<2.3cm) 2.2 cm LVPW (sytole) 2.3 cm LV diastole(<5.6CM) 5.1 cm MV E-F(>70mm/sec) cm LV systole 3.0 cm LVOT Diameter 2.2 cm MV exc.(>10mm) cm Est.ejection fraction (50-75%) % DOPPLER: LVIT cm/sec A 143 cm/sec E 117 cm/sec LA cm/sec RVSP 20.3 mmHg LVOT 253 cm/sec AOP1/2T m/s Asc. Ao 259 cm/sec RVOT 137 cm/sec RA cm/sec PA 119 cm/sec AV Gradient Peak 27.0 mmHg AV Mean 18.0 mmHg AV Area 3.7 cm MV Gradient Peak 9.5 mmHg MV Mean 3.6 mmHg MV Area cm COMMENTS: Waiter/Waitress Third Class: 1 NGUYỄN VINA Youth Care Worker: 1 Dr. Morrow TAPE# PACS Pericardial Effusion Y DATE OF SERVICE: FINDINGS: 1. Left ventricular chamber size is within normal limits. Left ventricular systolic function is normal. Overall ejection fraction estimated at 65%. 2. Left atrium, right atrium, right ventricle chamber size is mildly dilated. 3. Valvular structures have normal structure and motion. 4. Doppler interrogation reveals no significant valvular insufficiency or stenosis and pulmonary systolic pressure is estimated at 20 mmHg. 5. No evidence of pericardial effusion or left ventricular thrombus. ECHOCARDIOGRAM REPORT [id number] ADONIS YEE TRANSINT:[id number] Voice Confirmation ID: [id number] DOCUMENT ID: [id number] MARYURI MORROW MD at 1752 CC: [id number] DICTATION DATE: 02/10/18 162 FIRE CLAIMS ADJUSTER: 02/10/18 1640 ADM IN [facility] [address] [id number]
--- NOTE | ~2018-02-09 | HEMODYNAMI ---
PATIENT:ADONIS YEE MEDICAL RECORD: [id number] : 60 [id number] ADMISSION DATE: 02/09/18 Generatedon:02/11/201814:55 Patient name: ADONIS YEE Patient #: [id number] : 1960 Date of study: 02/11/2018 Page: Of Hemodynamic Procedure Report Patient Data Patient Demographics Procedure consent was obtained First Name: ADONIS Gender: Female Last Name: JOSELITO : 1960 [facility] Initial: CORINA Age: 57 year(s) Patient #: [id number] Race: SSN: [id number] Additional ID: [id number] Contact details Address: [address] [place] [address] State: [place] City: [facility] Zip code: [address] Past Medical History Allergies Allergen Reaction Date Comments Reported Other allergy 11/22/2015 Red Dye in Punch Admission Admission Data Admission Date: 02/09/2018 Admission Time: 16:04 Room #: D.2112 Lab Results Lab Result Date: 02/11/2018 Lab Result Time: 4:10 Biochemistry Name Units Result Min Max BUN mg/dl 14 --(--*-)-- 7 18 Creatinine mg/dl 1 --(--*-)-- 0.6 1.3 CBC Name Units Result Min Max Hematocrit % 42.8 --(*---)-- 42 54 Hemoglobin g/dl 14.1 --(*---)-- 13.5 17.5 Procedure Procedure Types Cath Procedure Diagnostic Procedure C [facility] w/Coronaries FFR/IVUS Intra-Coronary IVUS Initial Sedation Charges Moderate Sedation up to 15 minutes PCI Procedure Coronary Stent Coronary Stent Initial PTCA PTCA Initial Procedure Description Procedure Date Procedure Date: 02/11/2018 Procedure Start Time: 14:27 Procedure End Time: 14:51 Procedure Staff Name Function Jamir Morrow MD Performing Physician Demarco Owusu RN Nurse Roman Abraham RT Monitor Ayesha Marin RT Scrub Procedure Data Cath Procedure Fluoroscopy Diagnostic fluoroscopy Total fluoroscopy Time: 5.7 time: 5.7 min min Diagnostic fluoroscopy Total fluoroscopy dose: dose: 693.72 mGy 693.72 mGy Contrast Material Contrast Material Type Amount (ml) Isovue 300 108 Entry Location Entry Primary Successful Side Size Upsize Upsize Entry Closure Succes sful Closure Location (Fr) 1 (Fr) 2 (Fr) Remarks Device Remarks Femoral Right 6 Fr Exoseal artery Short Estimated blood loss: 10 ml Diagnostic catheters Device Type Used For End Catheter Placement MULTIPACK Pigtail 5 Fr Procedure catheter MULTIPACK JL 4.0 5Fr Procedure catheter MULTIPACK 3DRC 5Fr Procedure catheter Procedure Complications No complications Procedure Medications Medication Administration Route Dosage Oxygen etCO2 Nasal cannula 2 l/min Heparin Flush Bag added to field 2 bags (1000units/500ml NS) 0.9% NaCl I.V. 100 ml/hr Fentanyl I.V. 50 mcg Versed I.V. 1 mg Fentanyl I.V. 50 mcg Versed I.V. 1 mg Fentanyl I.V. 50 mcg Versed I.V. 1 mg Fentanyl I.V. 50 mcg Versed I.V. 1 mg Fentanyl I.V. 50 mcg Versed I.V. 1 mg Fentanyl I.V. 50 mcg Versed I.V. 1 mg Heparin Bolus I.V. 4000 units Hemodynamics Rest HGB: 14.1 (g/dl) Heart Rate: 76 (bpm) Pressure Samples Time Site Value (mmHg) Purpose Heart Use Rate(bpm) 14:31 LV 156/-19,-17 Snapshot 66 14:31 LV 187/-34,-29 Snapshot 85 Snapshots Pre Cath Intra NCS Post Cath Vital Signs Time Heart Resp SPO2 etCO2 NIBP (mmHg) Rhythm Pain Sedation Rate (ipm) (%) (mmHg) Status Level (bpm) 14:05:08 82 17 96 24 192/114(154) NSR 0 (11) 10(A) , No pain 14:10:08 78 16 97 36.8 194/113(156) NSR 0 (11) 10(A) , No pain 14:21:40 76 17 98 41.2 168/100(140) NSR 0 (11) 10(A) , No pain 14:26:18 78 17 96 37.5 176/101(149) NSR 0 (11) 10(A) , No pain 14:30:59 73 17 94 43.5 155/108(122) NSR 0 (11) 10(A) , No pain 14:35:31 78 16 95 49.5 172/114(157) NSR 0 (11) 10(A) , No pain 14:40:10 91 17 94 51 163/91(134) NSR 0 (11) 10(A) , No pain 14:46:15 85 16 94 45.7 185/109(164) NSR 0 (11) 10(A) , No pain 14:49:46 83 17 94 15 190/110(166) NSR 0 (11) 10(A) , No pain Medications Time Medication Route Dose Verified Delivered Reason Notes Effectiveness by by 14:05:12 Oxygen etCO2 2 Jamir Demarco Per physician Nasal l/min Odalys Owusu RN cannula 14:05:22 Heparin Flush added 2 Jamir Demarco used for Bag to bags Odalys Owusu RN procedure (1000units/500ml field NS) 14:05:30 0.9% NaCl I.V. 100 Jamir Demarco Per physician ml/hr Odalys Owusu RN 14:22:02 Fentanyl I.V. 50 Jamir Demarco for sedation mcg Odalys Owusu RN 14:22:09 Versed I.V. 1 mg Jamir Demarco for sedation Odalys Owusu RN 14:23:56 Fentanyl I.V. 50 Jamir Demarco for sedation mcg Odalys Owusu RN 14:23:58 Versed I.V. 1 mg Jamir Demarco for sedation Odalys Owusu RN 14:26:53 Fentanyl I.V. 50 Jamir Demarco for sedation mcg Odalys Owusu RN 14:26:58 Versed I.V. 1 mg Jamir Demarco for sedation Odalys Owusu RN 14:28:26 Fentanyl I.V. 50 Jamir Demarco for sedation mcg Odalys Owusu RN 14:28:29 Versed I.V. 1 mg Jamir Demarco for sedation Odalys Owusu RN 14:30:01 Fentanyl I.V. 50 Jamir Demarco for sedation mcg Odalys Owusu RN 14:30:07 Versed I.V. 1 mg Jamir Demarco for sedation Odalys Owusu RN 14:34:59 Fentanyl I.V. 50 Jamir Pal for sedation mcg Odalys Owusu RN 14:35:02 Versed I.V. 1 mg Jamir Pal for sedation Odalys Owusu RN 14:35:34 Heparin Bolus I.V. 4000 Jamir Pal for units Odalys Owusu RN anticoagulation Procedure Log Time Note 13:: Informed consent obtained and on chart 13::04 Diagnostic Cath status Elective 13::05 Time tracking: Regular hours (M-F 7:00 - 5:00) 13:01:10 Plan of Care:Hemodynamics will remain stable., Cardiac rhythm will remain stable., Comfort level will be maintained., Respiratory function will remain adequate., Patient/ family verbilizes understanding of procedure., Procedure tolerated without complication., Recovers from procedure without complications.. 13:46:20 Ayesha Counts RT(R) sent for patient. Start room use. 14:00:13 Patient received from Med II to CCL 3 Alert and oriented. Tansferred to table in Supine position. 14:00:15 Warm blankets applied, and kallie hugger turned on for patient comfort. 14:00:15 Correct patient and procedure confirmed by team. 14:00:16 ECG and BP/O2 sat monitors applied to patient. 14:00:17 Pre-procedure instructions explained to patient. 14:00:18 Pre-op teaching completed and patient verbalized understanding. 14:03:26 Vital chart was started 14:03:48 Rhythm: sinus rhythm 14:03:49 Full Disclosure recording started 14:05:12 Oxygen 2 l/min etCO2 Nasal cannula was administered by Demarco Owusu RN; Per physician; 14:05:22 Heparin Flush Bag (1000units/500ml NS) 2 bags added to field was administered by Demarco Owusu RN; used for procedure; 14:05:30 0.9% NaCl 100 ml/hr I.V. was administered by Demarco Owusu RN; Per physician; 14:10:40 Family in patients room. 14:10:41 Patient NPO since Midnight. 14:11:02 NKDA 14:11:04 Is the patient allergic to Iodine/contrast media? No. 14:11:59 Is patient on blood thinner?Yes 14:12:02 ACC The patient was administered the following blood thiners within the last 24 hours: ACCPlavix 14:12:04 Patient diabetic? No. 14:12:06 Previous problem with sedation/anesthesia? No ? 14:12:08 Snore? Yes 14:12:08 Sleep apnea? No 14:12:09 Deviated septum? No 14:12:10 Opens mouth fully? Yes 14:12:12 Sticks out tongue? Yes 14:12:20 Airway obstruction? Yes COPD 14:12:24 Dentures? Yes IN TIGHT 14:12:28 Pre procedure: right dorsailis pedis pulse 2+ Normal; easily identifiable; not easily obliterated 14:12:30 Patient pain scale 0/10 ?. 14:12:41 IV patent on arrival in Left upper arm with 0.9% NaCl at [facility]. 14:13:25 Lab Result : BUN 14 mg/dl 14:13:25 Lab Result : Creatinine 1 mg/dl 14:13:25 Lab Result : Hemoglobin 14.1 g/dl 14:13:25 Lab Result : Hematocrit 42.8 % 14:13:27 Lab results completed and on chart. 14:13:31 Right groin area was prepped with chlora-prep and draped in sterile fashion 14:13:35 Alarms reviewed by R. N. 14:13:36 Sharps counted by scrub and verified by R.N. 14:13:46 Baseline sample Acquired. 14:14:23 IV Left upper arm D/C'd due to infiltration. 14:20:43 IV CATHETER 22g opened to sterile field. 14:20:47 Physician arrived 14:20:47 --------ALL STOP TIME OUT------ 14:20:48 Final Timeout: patient, procedure, and site verified with staff and physician. All members of the team are in agreement. 14:20:49 Right groin site verified by team. 14:20:51 Physical assessment completed. ASA score P 2 - A patient with mild systemic disease as per Jamir Morrow MD. 14:20:54 Sedation plan: IV Moderate Sedation Medication:Versed, Fentanyl 14:20:59 Use device set Femoral Dx 14:20:59 ACIST Syringe (79683) opened to sterile field. 14:21:00 Bag Decanter (2002S) opened to sterile field. 14:21:00 Medline Cath Pack ([id number]) opened to sterile field. 14:21:02 ACIST Hand Control (35082) opened to sterile field. 14:21:02 ACIST Manifold (11161) opened to sterile field. 14:21:03 Tegaderm 4 x 4 (1626W) opened to sterile field. 14:21:04 SHEATH Prelude 5Fr 0.035 (JMR-7U-50-035) opened to sterile field. 14:21:05 DIAGNOSTIC WIRE .035 260cm J wire (766164) opened to sterile field. 14:21:06 DIAGNOSTIC Multipack 5Fr catheter set (JL0817) opened to sterile field. 14:22:02 Fentanyl 50 mcg I.V. was administered by Demarco Owusu RN; for sedation; 14:22:09 Versed 1 mg I.V. was administered by Demarco Owusu RN; for sedation; 14:23:56 Fentanyl 50 mcg I.V. was administered by Demarco Owusu RN; for sedation; 14:23:58 Versed 1 mg I.V. was administered by Demarco Owusu RN; for sedation; 14:25:50 Zero performed for pressure channel P1 14:25:59 SHEATH Prelude 6Fr 0.035 (AWW-8R-56-035) opened to sterile field. 14:26:53 Fentanyl 50 mcg I.V. was administered by Demarco Owusu RN; for sedation; 14:26:58 Versed 1 mg I.V. was administered by Demarco Owusu RN; for sedation; 14:27:48 Procedure started. 14:27:51 Local anesthetic to right femoral artery with Lidocaine 2% by Jamir Morrow MD.INITIAL ACCESS ONLY 14:28:09 A 6 Fr Short sheath was inserted into the Right Femoral artery 14:28:26 Fentanyl 50 mcg I.V. was administered by Demarco Owusu RN; for sedation; 14:28:29 Versed 1 mg I.V. was administered by Demarco Owusu RN; for sedation; 14:29:38 A MULTIPACK Pigtail 5 Fr catheter was advanced over the wire and used for Procedure. 14:30:01 Fentanyl 50 mcg I.V. was administered by Demarco Owusu RN; for sedation; 14:30:07 Versed 1 mg I.V. was administered by Demarco Owusu RN; for sedation; 14:31:16 LV gram done using CONNOLLY 14:31:19 Injector settings: Ml/sec: 10, Volume: 20, 14:31:21 LV hemodynamics recorded. 14:31:25 EF : 65 % 14:31:43 A MULTIPACK JL 4.0 5Fr catheter was advanced over the wire and used for Procedure. 14:32:21 LCA angiography performed. 14:33:59 Catheter exchanged over wire. 14:34:03 A MULTIPACK 3DRC 5Fr catheter was advanced over the wire and used for Procedure. 14:34:22 CHOICE PT Extra Support 182cm wire ([id number]) opened to sterile field. 14:34:23 INFLATOR Merit BasixCompak (CE4670) opened to sterile field. 14:34:59 Fentanyl 50 mcg I.V. was administered by Demarco Owusu RN; for sedation; 14:35:02 Versed 1 mg I.V. was administered by Demarco Owusu RN; for sedation; 14:35:20 GUIDE 6FR AR 1.0 catheter (QK3VB03) opened to sterile field. 14:35:34 Heparin Bolus 4000 units I.V. was administered by Demarco Owusu RN; for anticoagulation; 14:35:59 [place] IVUS Catheter (14702B) opened to sterile field. 14:36:17 6 Fr AR 1 guide catheter was inserted over the wire 14:36:24 CHOICE PT ES wire advanced. 14:36:25 Wire advanced across lesion. 14:36:29 IVUS catheter advanced over wire. 14:36:33 IVUS pass to RCA lesion performed. 14:38:19 IVUS catheter removed over wire. 14:39:12 Inflate balloon Inflation number: 1 A EUPHORA 4.0 x 20 Balloon ([id number]) was prepped and advanced across the Prox RCA, then inflated to 17 TANNA for 0:10 (min:sec). 14:39:29 Inflation number: 2 The EUPHORA 4.0 x 20 Balloon ([id number]) was reinflated across the Prox RCA, to 21 TANNA for 0:10 (min:sec). 14:39:49 Balloon removed over the wire. 14:39:50 Wire removed. 14:41:05 GUIDE 6FR EBU 3.5 catheter ([id number]) opened to sterile field. 14:41:16 6 Fr EBU 3.5 guide catheter was inserted over the wire 14:41:21 CHOICE PT ES wire advanced. 14:41:28 Wire advanced across lesion. 14:44:21 6 Fr EBU 3.5 guide catheter was inserted over the wire 14:44:25 CHOICE PT ES wire advanced. 14:44:27 Wire advanced across lesion. 14:44:31 IVUS catheter advanced over wire. 14:44:33 IVUS pass to LAD lesion performed. 14:44:35 IVUS catheter removed over wire. 14:46:06 Place stent Inflation Number: 1 A SAMANTHA RX 3.0 x 08 stent ([id number]) was prepped and advanced across the Prox LAD. The stent was deployed at 13 TANNA for 0:10 (min:sec). 14:46:11 Stent catheter was removed intact over wire. 14:46:12 Wire removed. 14:46:12 Guide catheter removed. 14:46:13 Guide catheter removed. 14:46:21 EXOSEAL 6Fr (EX600) opened to sterile field. 14:46:28 Sheath removed intact; hemostasis achieved with Exoseal to the Right Femoral artery. 14:46:29 Procedure ended.(Physican Out) 14:49:01 Fluoroscopy time 05.70 minutes. 14:49:12 Fluoroscopy dose: 693.72 mGy 14:49:12 Flurop Dose total: 693.72 14:49:15 Contrast amount:Isovue 300 108ml. 14:49:16 Sharps counted by scrub and verified by R.N. 14:50:03 Insertion/operative site no bleeding no hematoma. 14:50:05 Post-op/insertion site Right Femoral artery dressed using a 4 x 4 and Tegaderm. 14:50:09 Post right femoral artery:stable, soft, clean and dry 14:50:10 Post Procedure Pulses reassessed and unchanged 14:50:12 Post-procedure physical assessment completed. ASA score P 2 - A patient with mild systemic disease as per Jamir Morrow MD. 14:50:14 Post procedure rhythm: unchanged. 14:50:17 Estimated blood loss: 10 ml 14:50:19 Post procedure instruction explained to patient.Patient verbalizes understanding. 14:50:19 Patient needs reinforcement of post procedure teaching. 14:50:31 Procedure type changed to Cath procedure, Diagnostic procedure, LHC, LHC w/Coronaries, FFR/IVUS, Intra-Coronary IVUS Initial, Sedation Charges, Moderate Sedation up to 15 minutes, PCI procedure, Coronary Stent, Coronary Stent Initial, PTCA, PTCA Initial 14:51:40 Procedure and supply charges have been captured, reviewed, submitted and are correct. 14:51:42 Procedure Complication : No complications 14:51:44 Vital chart was stopped 14:51:45 See physician's report for complete and final results. 14:51:46 Report given to PCU. 14:51:48 Patient transfered to PCU with Stretcher. 14:51:50 Procedure ended. 14:51:50 Full Disclosure recording stopped 14:51:54 End room use (Document Last) Intervention Summary Intervention Notes Time ActionType Lesion and Equipment Used Action# Pressure Duration Attributes 14:39:12 Inflate Prox RCA EUPHORA 4.0 x 1 17 00:10 balloon 20 Balloon ([id number]) 14:39:29 Reinflate Prox RCA EUPHORA 4.0 x 2 21 00:10 balloon 20 Balloon ([id number]) 14:46:06 Place stent Prox LAD SAMANTHA RX 3.0 x 1 13 00:10 08 stent ([id number]) Device Usage Item Name Manufacture Quantity Catalog Number Hospital Part Current Minimal Lot# / Charge Number Stock Stock Serial# Code IV CATHETER 22g [place]. [place] 1 [id number] 243858 318114 347351 5 ACIST Syringe Acist 1 54674 480084 166763 394381 20 (86152) [employer] Inc Bag Decanter Microtek 1 2001S 148329 06601 726088 5 (2001S) Medical Inc. Medline Cath Cardinal 1 [id number] 690478 99914 962181 5 Pack Health (NVNY29285) ACIST Hand Acist 1 34372 567363 455374 867872 5 Control (94744) [employer] Inc ACIST Manifold Acist 1 01259 984090 862872 128856 5 (71563) [employer] Systems Inc Tegaderm 4 x 4 3M 1 1626W 435137 931837 019945 5 (1626W) SHEATH Prelude Merit 1 FSW-3V-64-035 685457 420753 810529 5 5Fr 0.035 Medical (DNS-7I-15-035) DIAGNOSTIC WIRE [place] 1 681213 772860 877664 975858 30 .035 260cm J wire (475533) DIAGNOSTIC Cardinal 1 TJ6255 215474 26980 346195 30 Multipack 5Fr Health catheter set (GP2034) SHEATH Prelude Merit 1 HCU-7X-85-35 858807 4793687 380294 5 6Fr 0.035 Medical (QSH-9M-27-035) MULTIPACK Cardinal 1 664725 5 Pigtail 5 Fr Health catheter MULTIPACK JL Cardinal 1 513670 5 4.0 5Fr Health catheter MULTIPACK 3DRC Cardinal 1 091635 5 5Fr catheter Health CHOICE PT Extra Dennard 1 [id number] 515668 267435 348680 5 Support 182cm Scientific wire (1575101H5) INFLATOR Merit Merit 1 BI6561 938960 081262 488921 15 [place] reQRdosixIngenium [place] Medical (ZW9406) GUIDE 6FR AR Medtronic 1 [id number] 002930 28689 698405 1 1.0 catheter (BP0XK95) [place] 1 41194G 049981 390480 312756 8 [place] IVUS Catheter (44911M) EUPHORA 4.0 x Medtronic 1 [id number] 032194 765735 705619 5 [id number] 20 Balloon ([id number]) GUIDE 6FR EBU Medtronic 1 [id number] 509274 54353 060782 3 3.5 catheter (UC6QVG05) SAMANTHA RX 3.0 x Medtronic 1 [id number] 714214 3646837 193649 5 [id number] 08 stent ([id number]) EXOSEAL 6Fr Cardinal 1 EX600 544488 943543 416086 10 (EX600) Health Signature Audit Hansen Stage Time Signature Unsigned Intra-Procedure 02/11/2018 Roman Abraham 2:55:44 PM RT(R) Signatures Monitor : Roman Abraham RT Signature : Date : Time : [facility] [address] [place] [address]
--- NOTE | ~2018-02-09 | OP ---
PATIENT NAME: ADONIS YEE MEDICAL RECORD: [id number] :60 LOCATION:D.M2 D.2111 ADMISSION DATE:02/09/18 SURGEON: MARYURI PRIEST MD DATE OF OPERATION: 02/11/2018 PROCEDURES: 1. PTCA stent LAD. 2. PTCA stent RCA. 3. Intravascular ultrasound of the LAD. 4. Intravascular ultrasound of the RCA. 5. Left heart catheterization. 6. Selective coronary angiography. 7. Left ventriculogram. INDICATION: Angina and coronary artery disease. PROCEDURE IN DETAIL: After informed consent was obtained and after a detailed description of risks, benefits as well as alternative therapies, the patient elected to proceed with angiogram and angioplasty. The right femoral area was prepped and draped in normal sterile fashion. Right femoral artery was cannulated via modified Seldinger technique with placement of 6-Mongolian sheath. All catheters exchanged through this sheath. FINDINGS: The left ventriculogram was performed in standard 30-degree CONNOLLY view, reveals good cardiac wall motion throughout all segments. Overall ejection fraction estimated 60%. SELECTIVE CORONARY ANGIOGRAPHY: 1. Left main showed no significant angiographic disease. 2. Left anterior descending has greater than 80% stenosis in the mid vessel confirmed by intravascular ultrasound. 3. Left circumflex has [id number]-iq-dbuwlyfc irregularities. 4. The right coronary artery has greater than 80% stenosis in the mid vessel confirmed by intravascular ultrasound. The right coronary artery with in-stent restenosis. PTCA STENT OF THE LAD: The stent used was a 3.0 x 8 mm [place]. Result was 0% residual stenosis throughout. PTCA OF THE RCA: The balloon used was a 4.0 balloon taken to 21 atmospheres. Result was 0% residual stenosis. OVERALL IMPRESSION: Successful PTCA stent of the LAD and successful high pressure PTCA of the RCA for in-stent restenosis, both going from 80% initial stenosis to 0% residual. TRANSINT:[id number] Voice Confirmation ID: [id number] DOCUMENT ID: [id number] OPERATIVE REPORT [id number] ADONIS YEE MARYURI PRIEST MD at 1834 CC: [id number] DICTATION DATE: 02/11/18 1452 TEXTILE ENGINEER: 02/11/18 1503 DIS IN 02/12/18 [facility] [address] [place] [address]
[~2018-02-09 12:35] MED LIST changes: +DIFLUCAN100 MG PO; +NEURONTIN 300300 MG PO; +TOPAMAX100 MG PO; +TYLENOL W/CODEI1 TAB PO; +ZOFRAN ODT4 MG/UDTAB PO; +ZPAK PO
[2018-02-09] MEDS ORDERED: PHENERGAN25 M1 PO (13:10)
[2018-02-09 13:41] LABS: BASOPHILS 0.3 % (0-2); EOSINOPHILS 3.6 % (0-7); HEMATOCRIT 43.7 % (36.0-48.0); HEMOGLOBIN 14.4 g/dL (12-16); IMMATURE GRANULOCYTES 0.4 % (0-5); LYMPHOCYTES 34.5 % (15-50); MCV 81.8 fL (80.0-100.0); MEAN PLATELET VOLUME 9.5 fL (7.4-10.4); MONOCYTES 11.5 % (2-11); NEUTROPHILS 49.7 % (40-80); PLATELET COUNT 190 10x3/uL (130-400); RBC 5.34 10x6/uL (4.00-5.40); RDW 14.3 % (11.5-14.5); WBC 7.4 10x3/uL (4.8-10.8)
[2018-02-09 14:09] LABS: ALBUMIN 3.3 g/dL (3.4-5.0); ALKALINE PHOSPHATASE 127 U/L (46-116); ALT (SGPT) 30 U/L (10-68); BILIRUBIN - TOTAL 0.39 mg/dL (0.2-1.3); CALC OSMOLALITY 278 mosm/kg (275-300); CALCIUM 8.9 mg/dL (8.5-10.1); CARBON DIOXIDE 31.6 mmol/L (21.0-32.0); CHLORIDE - SERUM 100 mmol/L (98-107); CKMB 1.6 U/L (0.0-3.6); CREATINE KINASE 85 UL (21-215); CREATININE - SERUM 0.9 mg/dL (0.6-1.3); GLUCOSE 112 mg/dL (74-106); PRO BNP 198 pg/mL (0-125); SODIUM 140 mmol/L (136-145); TROPONIN-I < 0.017 ng/mL (0.000-0.060); UREA NITROGEN 10 mg/dL (7-18); eGFR NON AFRICAN AMERICAN 68 mL/min (90-120)
[2018-02-09 14:10] LABS: POTASSIUM - SERUM 2.7 mmol/L (3.5-5.1)
[2018-02-09 14:25] LABS: APPEARANCE CLEAR (CLEAR); BILIRUBIN NEGATIVE (NEGATIVE); COLOR YELLOW (YELLOW); GLUCOSE NEGATIVE (NEGATIVE); KETONE NEGATIVE (NEGATIVE); NITRITE NEGATIVE (NEGATIVE); PROTEIN NEGATIVE (NEGATIVE); UROBILINOGEN NORMAL (NORMAL)
[2018-02-09 14:29] LABS: INR 0.94 (0.85-1.17); PROTIME 12.2 SECONDS (11.6-15.0)
[2018-02-09 14:30] LABS: D-DIMER-QUANTITATIVE 0.27 ug/mLFEU (0.20-0.54)
[2018-02-09 15:27] VITALS: BP 124/64
[2018-02-09 17:09] LABS: CKMB 1.6 U/L (0.0-3.6); CREATINE KINASE 85 UL (21-215); TROPONIN-I < 0.017 ng/mL (0.000-0.060)
[2018-02-09 19:30] VITALS: BP 131/80
[2018-02-09 22:46] LABS: CKMB 1.7 U/L (0.0-3.6); CREATINE KINASE 89 UL (21-215)
[2018-02-09 22:49] LABS: TROPONIN-I < 0.017 ng/mL (0.000-0.060)
[2018-02-09 23:14] VITALS: BP 166/97; BMI 40.1
[2018-02-10 04:53] LABS: BASOPHILS 0.1 % (0-2); EOSINOPHILS 0 % (0-7); HEMATOCRIT 42.8 % (36.0-48.0); HEMOGLOBIN 14.1 g/dL (12-16); IMMATURE GRANULOCYTES 0.3 % (0-5); LYMPHOCYTES 13.8 % (15-50); MCH 26.8 pg (26.0-34.0); MCHC 32.9 g/dL (31.0-37.0); MCV 81.2 fL (80.0-100.0); MONOCYTES 1.2 % (2-11); NEUTROPHILS 84.6 % (40-80); PLATELET COUNT 206 10x3/uL (130-400); RBC 5.27 10x6/uL (4.00-5.40); RDW 14.1 % (11.5-14.5); WBC 7.7 10x3/uL (4.8-10.8)
[2018-02-10 05:21] LABS: ALBUMIN 2.9 g/dL (3.4-5.0); ALKALINE PHOSPHATASE 103 U/L (46-116); ALT (SGPT) 26 U/L (10-68); BILIRUBIN - TOTAL 0.28 mg/dL (0.2-1.3); CALCIUM 8.8 mg/dL (8.5-10.1); CARBON DIOXIDE 28.6 mmol/L (21.0-32.0); CHLORIDE - SERUM 103 mmol/L (98-107); CKMB 1.2 U/L (0.0-3.6); CREATINE KINASE 73 UL (21-215); PROTEIN - SERUM 6.5 g/dL (6.4-8.2); SODIUM 141 mmol/L (136-145); TROPONIN-I < 0.017 ng/mL (0.000-0.060); eGFR NON AFRICAN AMERICAN 61 mL/min (90-120)
[2018-02-10 05:27] LABS: CALC OSMOLALITY 288 mosm/kg (275-300); GLUCOSE 223 mg/dL (74-106); UREA NITROGEN 14 mg/dL (7-18)
[2018-02-10 05:28] VITALS: BP 166/97
[2018-02-10 09:12] VITALS: BP 128/85
[2018-02-10 11:58] VITALS: Ht 157.5 cm; Wt 107.8 kg
[2018-02-10 12:08] VITALS: BP 136/80
[2018-02-10 16:05] VITALS: BP 130/79
[2018-02-10 20:39] VITALS: BP 155/84
[2018-02-11] VITALS (12 sets, daily range): BP systolic 99–206; BP diastolic 63–111
[2018-02-11 05:35] LABS: BASOPHILS 0.1 % (0-2); EOSINOPHILS 0 % (0-7); HEMATOCRIT 40.6 % (36.0-48.0); HEMOGLOBIN 13.3 g/dL (12-16); IMMATURE GRANULOCYTES 0.9 % (0-5); LYMPHOCYTES 11.3 % (15-50); MCH 27.2 pg (26.0-34.0); MCHC 32.8 g/dL (31.0-37.0); MEAN PLATELET VOLUME 10.6 fL (7.4-10.4); NEUTROPHILS 80.7 % (40-80); PLATELET COUNT 223 10x3/uL (130-400); RBC 4.89 10x6/uL (4.00-5.40); RDW 14.3 % (11.5-14.5)
[2018-02-11 05:38] LABS: WBC 17.1 10x3/uL (4.8-10.8)
[2018-02-11 06:03] LABS: ANION GAP 11.8 mmol/L (8-16); CALCIUM 8.6 mg/dL (8.5-10.1); CARBON DIOXIDE 28.8 mmol/L (21.0-32.0); CREATININE - SERUM 1.1 mg/dL (0.6-1.3)
[2018-02-11 06:07] LABS: POTASSIUM - SERUM 3.6 mmol/L (3.5-5.1)
[2018-02-12 05:45] LABS: BASOPHILS 0.1 % (0-2); EOSINOPHILS 0 % (0-7); HEMATOCRIT 40.3 % (36.0-48.0); HEMOGLOBIN 12.8 g/dL (12-16); IMMATURE GRANULOCYTES 1.1 % (0-5); LYMPHOCYTES 9.5 % (15-50); MCH 26.6 pg (26.0-34.0); MCHC 31.8 g/dL (31.0-37.0); MCV 83.8 fL (80.0-100.0); MEAN PLATELET VOLUME 10.1 fL (7.4-10.4); MONOCYTES 5.3 % (2-11); PLATELET COUNT 233 10x3/uL (130-400); RBC 4.81 10x6/uL (4.00-5.40); RDW 14.3 % (11.5-14.5); WBC 14.8 10x3/uL (4.8-10.8)
[2018-02-12 05:50] VITALS: BP 136/82
[2018-02-12 06:02] LABS: ANION GAP 13.3 mmol/L (8-16); CALCIUM 8.6 mg/dL (8.5-10.1); CARBON DIOXIDE 25.2 mmol/L (21.0-32.0); CREATININE - SERUM 0.9 mg/dL (0.6-1.3); POTASSIUM - SERUM 3.5 mmol/L (3.5-5.1)
[2018-02-12 08:25] VITALS: BP 144/79
[2018-02-12] MEDS ORDERED: MIRALAX17 GM PO (11:34)
[2018-02-12 11:38] VITALS: BP 157/75
== END 2018-02-12 15:16 | disposition home or self-care (01) ==
LOC: D.ER 12:35 → D.EDHOLD 16:04 → OBSVTIME 16:04 → D.M2 16:04
PROVIDERS: Family Medicine; Internal Medicine Nephrology
DX: I25.119 Atherosclerotic heart disease of native coronary artery with unspecified angina pectoris (principal); Z95.5 Presence of coronary angioplasty implant and graft; T82.855A Stenosis of coronary artery stent, initial encounter; Y83.8 Other surgical procedures as the cause of abnormal reaction of the patient, or of later complication, without mention of misadventure at the time of the procedure; I11.0 Hypertensive heart disease with heart failure; I50.9 Heart failure, unspecified; F41.8 Other specified anxiety disorders; J44.9 Chronic obstructive pulmonary disease, unspecified; E87.6 Hypokalemia; F17.213 Nicotine dependence, cigarettes, with withdrawal; E78.5 Hyperlipidemia, unspecified; M32.9 Systemic lupus erythematosus, unspecified; G89.29 Other chronic pain

== ENCOUNTER 2018-10-11 13:27 | Observation (INO) | payer MEDICAID ==
--- NOTE | ~2018-10-11 | HEMODYNAMI ---
PATIENT:ADONIS YEE MEDICAL RECORD: [id number] : 60 LOCATION[facility] [facility] [id number] ADMISSION DATE: 10/11/18 Generatedon:10/12/201813:21 Patient name: ADONIS YEE Patient #: [id number] : 1960 Date of study: 10/12/2018 Page: Of Hemodynamic Procedure Report Patient Data Patient Demographics Procedure consent was obtained First Name: ADONIS Gender: Female Last Name: JOSELITO : 1960 Middle Initial: CORINA Age: 58 year(s) Patient #: [id number] Race: SSN: [id number] Additional ID: [id number] Contact details Address: [address] [place] [address] State: [place] City: [facility] Zip code: [address] Past Medical History Allergies Allergen Reaction Date Comments Reported Other allergy 11/22/2015 Red Dye in Punch Admission Admission Data Admission Date: 10/11/2018 Admission Time: 19:11 Room #: D.2115 Procedure Procedure Types Cath Procedure Diagnostic Procedure [facility] w/Coronaries Sedation Charges Moderate Sedation up to 15 minutes PCI Procedure Coronary Stent Coronary Stent Initial Peripheral Cath Diagnostic Procedure Curing Room Supervisor Peripheral Procedures Umrsk-Jvgqevi-Dsl-Off Procedure Description Procedure Date Procedure Date: 10/12/2018 Procedure Start Time: 12:59 Procedure End Time: 13:20 Procedure Staff Name Function Jamir Morrow MD Performing Physician Ayesha Marin RT Monitor Saud Bautista RN Nurse Magno Reddy RT Scrub Procedure Data Cath Procedure Fluoroscopy Diagnostic fluoroscopy Total fluoroscopy Time: 5.2 time: 5.2 min min Diagnostic fluoroscopy Total fluoroscopy dose: dose: 1191 mGy 1191 mGy Contrast Material Contrast Material Type Amount (ml) Isovue 300 145 Entry Location Entry Primary Successful Side Size Upsize Upsize Entry Closure Succes sful Closure Location (Fr) 1 (Fr) 2 (Fr) Remarks Device Remarks Femoral Right 5 Fr 6 Fr Exoseal artery Short Estimated blood loss: 10 ml Diagnostic catheters Device Type Used For End Catheter Placement MULTIPACK Pigtail 5 Fr LV Angiography catheter MULTIPACK 3DRC 5Fr Right Coronary catheter Angiography MULTIPACK JL 4.0 5Fr Left Coronary catheter Angiography MULTIPACK Pigtail 5 Fr LV Angiography catheter MULTIPACK Pigtail 5 Fr Abdominal catheter aortogram with runoff Procedure Complications No complications Procedure Medications Medication Administration Route Dosage 0.9% NaCl I.V. 100 ml/hr Oxygen etCO2 Nasal cannula 2 l/min Heparin Flush Bag added to field 2 bags (1000units/500ml NS) Lidocaine 2% added to field 20 Versed I.V. 2 mg Fentanyl I.V. 100 mcg Versed I.V. 2 mg Fentanyl I.V. 100 mcg Versed I.V. 2 mg Fentanyl I.V. 50 mcg Heparin Bolus I.V. 4000 units Fentanyl I.V. 50 mcg Versed I.V. 2 mg Hemodynamics Rest Heart Rate: 64 (bpm) Snapshots Pre Cath Intra NCS Post Cath Vital Signs Time Heart Resp SPO2 etCO2 NIBP (mmHg) Rhythm Pain Sedation Rate (ipm) (%) (mmHg) Status Level (bpm) 12:32:15 63 23 99 0 174/98(165) NSR 0 (11) 10(A) , No pain 12:36:35 60 12 99 33.8 168/85(123) NSR 0 (11) 10(A) , No pain 12:40:49 63 24 98 28.6 157/91(127) NSR 0 (11) 10(A) , No pain 12:45:03 64 22 97 41.3 142/85(104) NSR 0 (11) 10(A) , No pain 12:49:17 66 20 98 30.8 142/91(130) NSR 0 (11) 10(A) , No pain 12:53:31 60 16 98 33.8 162/93(136) NSR 0 (11) 10(A) , No pain 12:57:45 66 21 98 43.6 148/92(118) NSR 0 (11) 10(A) , No pain 13:02:01 73 10 91 48.1 146/98(119) NSR 0 (11) 10(A) , No pain 13:13:09 78 16 95 46.6 158/81(134) NSR 0 (11) 10(A) , No pain 13:17:27 82 19 97 20.3 140/90(118) NSR 0 (11) 10(A) , No pain Medications Time Medication Route Dose Verified Delivered Reason Notes Effectiveness by by 12:36:02 0.9% NaCl I.V. 100 Saud Saud Per physician ml/hr Lily Bautista RN RN 12:36:13 Oxygen etCO2 2 Saud Saud for low 02 sats Nasal l/min Lily Bautista cannula RN RN 12:36:23 Heparin Flush added 2 Saud Saud used for Bag to bags Lormohit Bautista procedure (1000units/500ml field RN RN NS) 12:36:33 Lidocaine 2% added 20ml Saud Saud for local to vial Lormohit Bautista anesthetic field RN RN 12:57:34 Versed I.V. 2 mg Saud Saud for sedation Lily Bautista RN RN 12:57:43 Fentanyl I.V. 100 Saud Saud for sedation mcg Lily Bautista RN RN 12:59:29 Versed I.V. 2 mg Saud Saud for sedation Lily Bautista RN RN 12:59:35 Fentanyl I.V. 100 Saud Saud for sedation mcg Lily Bautista RN RN 13:01:43 Versed I.V. 2 mg Saud Saud for sedation Lily Bautista RN RN 13:01:49 Fentanyl I.V. 50 Saud Saud for sedation mcg Lily Bautista RN RN 13:11:37 Heparin Bolus I.V. 4000 Saud Saud for units Lily Bautista anticoagulation RN RN 13:11:43 Fentanyl I.V. 50 Saud Saud for sedation mcg Lily Bautista RN RN 13:11:53 Versed I.V. 2 mg Saud Saud for sedation Lily Bautista RN snowboard designer Log Time Note 12:11:14 Time tracking: Regular hours (M-F 7:00 - 5:00) 12:11:19 Plan of Care:Hemodynamics will remain stable., Cardiac rhythm will remain stable., Comfort level will be maintained., Respiratory function will remain adequate., Patient/ family verbilizes understanding of procedure., Procedure tolerated without complication., Recovers from procedure without complications.. 12:21:24 Magno Reddy RT(R) sent for patient. Start room use. 12:25:59 Patient received from PCU to CCL 2 Alert and oriented. Tansferred to table in Supine position. 12:26:00 Warm blankets applied, and kallie hugger turned on for patient comfort. 12:26:00 Correct patient and procedure confirmed by team. 12:26:01 Signed procedure consent form obtained from patient. 12:26:02 ECG and BP/O2 sat monitors applied to patient. 12:26:03 Full Disclosure recording started 12:31:00 Vital chart was started 12:33:10 Rhythm: sinus rhythm 12:33:35 H&P Date Dictated: 10/11/2018 Within 30 days and on chart.. 12:33:37 Pre-procedure instructions explained to patient. 12:33:37 Pre-op teaching completed and patient verbalized understanding. 12:33:39 Family in patients room. 12:33:41 Patient NPO since Midnight. 12:34:22 Is the patient allergic to Iodine/contrast media? No. 12:34:24 Is patient on blood thinner?Yes 12:34:26 ACC The patient was administered the following blood thiners within the last 24 hours: ACCPlavix 12:34:41 Patient diabetic? No. 12:34:50 Previous problem with sedation/anesthesia? No ? 12:34:51 Snore? Yes 12:34:52 Sleep apnea? No 12:34:53 Deviated septum? No 12:34:54 Opens mouth fully? Yes 12:34:55 Sticks out tongue? Yes 12:35:07 Airway obstruction? Yes COPD 12:35:11 Dentures? Yes OUT 12:35:16 Pre procedure: right dorsailis pedis pulse 1+ Palpable, but thready & weak; easily obliterated 12:35:20 Patient pain scale 0/10 ?. 12:35:33 IV patent on arrival in right forearm with 0.9% NaCl at O. 12:35:35 Lab results completed and on chart. 12:35:38 Right groin area was prepped with chlora-prep and draped in sterile fashion 12:35:39 Alarms reviewed by R. N. 12:35:40 Sharps counted by scrub and verified by R.N. 12:35:45 Use device set Femoral Dx 12:35:45 ACIST Syringe (31418) opened to sterile field. 12:35:46 Bag Decanter (2002S) opened to sterile field. 12:35:47 Medline Cath Pack ([id number]) opened to sterile field. 12:35:47 DIAGNOSTIC WIRE .035 260cm J wire (982475) opened to sterile field. 12:35:48 ACIST Hand Control (87919) opened to sterile field. 12:35:49 ACIST Manifold (15637) opened to sterile field. 12:35:49 DIAGNOSTIC Multipack 5Fr catheter set (HK3399) opened to sterile field. 12:35:50 Tegaderm 4 x 4 (1626W) opened to sterile field. 12:35:51 SHEATH 5FR Randall (UVF582) opened to sterile field. 12:36:02 0.9% NaCl 100 ml/hr I.V. was administered by Saud Bautista RN; Per physician; 12:36:13 Oxygen 2 l/min etCO2 Nasal cannula was administered by Saud Bautista RN; for low 02 sats; 12:36:23 Heparin Flush Bag (1000units/500ml NS) 2 bags added to field was administered by Saud Bautista RN; used for procedure; 12:36:33 Lidocaine 2% 20ml vial added to field was administered by Saud Bautista RN; for local anesthetic; 12:36:49 Baseline sample Acquired. 12:46:30 Zero performed for pressure channel P1 12:55:55 Final Timeout: patient, procedure, and site verified with staff and physician. All members of the team are in agreement. 12:55:56 Right groin site verified by team. 12:55:59 Maximum allowable Isovue 300 dose 300ml. Physician notified. (300ml for normal creatinines. For patients with creatinine of 1.7 or higher multiply weight(kg) x 5 divided by creatinine.) 12:56:03 Fire Safety Assessment: A--An alcohol-based skin anteseptic being used preoperatively., C--Open oxygen or nitrous oxide is being used., D--An ESU, laser, or fiber-optic light is being used. 12:56:06 Physical assessment completed. ASA score P 2 - A patient with mild systemic disease as per Jamir Morrow MD. 12:56:08 Sedation plan: IV Moderate Sedation Medication:Versed, Fentanyl 12:57:34 Versed 2 mg I.V. was administered by Saud Bautista RN; for sedation; 12:57:43 Fentanyl 100 mcg I.V. was administered by Saud Bautista RN; for sedation; 12:57:58 Procedure started. 12:59:29 Versed 2 mg I.V. was administered by Saud Bautista RN; for sedation; 12:59:35 Fentanyl 100 mcg I.V. was administered by Saud Bautista RN; for sedation; 12:59:45 Local anesthetic to right femoral artery with Lidocaine 2% by Jamir Morrow MD.INITIAL ACCESS ONLY 13:00:28 A 5 Fr sheath was inserted into the Right Femoral artery 13:00:36 A MULTIPACK Pigtail 5 Fr catheter was advanced over the wire and used for LV Angiography. removed unable to advance past iliac bifurcation 13:01:43 Versed 2 mg I.V. was administered by Saud Bautista RN; for sedation; 13:01:49 Fentanyl 50 mcg I.V. was administered by Saud Bautista RN; for sedation; 13:03:01 A MULTIPACK 3DRC 5Fr catheter was advanced over the wire and used for Right Coronary Angiography. 13:03:31 Catheter removed. 13:03:57 A MULTIPACK JL 4.0 5Fr catheter was advanced over the wire and used for Left Coronary Angiography. 13:05:25 Catheter removed. 13:05:40 A MULTIPACK Pigtail 5 Fr catheter was advanced over the wire and used for LV Angiography. 13:05:45 LV gram done using CONNOLLY 13:05:50 Injector settings: Ml/sec: 10, Volume: 20, 13:05:55 EF : 60 % 13:06:02 Use device set TAUTH PCI 13:06:04 SHEATH 6FR Randall (UWW488) opened to sterile field. 13:06:06 INFLATOR Merit BasixCompak (CB8845) opened to sterile field. 13:06:11 CHOICE PT Extra Support 182cm wire ([id number]) opened to sterile field. 13:06:29 GUIDE 6FR XBLAD 4.0 catheter ([id number]) opened to sterile field. 13:07:10 A MULTIPACK Pigtail 5 Fr catheter was advanced over the wire and used for Abdominal aortogram with runoff. 13:07:19 Catheter removed. 13:07:53 Sheath upsized to a 6 Fr Short. 13:09:22 6 Fr XBLAD 4.0 guide catheter was inserted over the wire 13:09:32 CHOICE PT ES wire advanced. 13:11:37 Heparin Bolus 4000 units I.V. was administered by Saud Bautista RN; for anticoagulation; 13:11:43 Fentanyl 50 mcg I.V. was administered by Saud Bautista RN; for sedation; 13:11:53 Versed 2 mg I.V. was administered by Saud Bautista RN; for sedation; 13:12:45 The SAMANTHA RX 2.0 x 8 stent ([id number]) was advanced then removed because of failure to cross lesion 13:14:02 Inflate balloon Inflation number: 1 A EUPHORA 2.0 x 6 Balloon ([id number]) was prepped and advanced across the 1st Diag, then inflated to 17 TANNA for 0:09 (min:sec). 13:15:19 Place stent Inflation Number: 2 A SAMANTHA RX 2.0 x 8 stent ([id number]) was prepped and advanced across the 1st Diag. The stent was deployed at 13 TANNA for 0:06 (min:sec). 13:15:35 Stent catheter was removed intact over wire. 13:15:36 Wire removed. 13:15:36 Guide catheter removed. 13:15:44 Sheath removed intact; hemostasis achieved with Exoseal to the Right Femoral artery. 13:15:46 Procedure ended.(Physican Out) 13:16:18 Fluoroscopy time 05.20 minutes. 13:16:22 Flurop Dose total: 1191 13:16:22 Fluoroscopy dose: 1191 mGy 13:16:44 Contrast amount:Isovue 300 145ml. 13:16:45 Sharps counted by scrub and verified by R.N. 13:16:51 Insertion/operative site no bleeding no hematoma. 13:16:54 Post-op/insertion site Right Femoral artery dressed using a 4 x 4 and Tegaderm. 13:16:59 Post right femoral artery:stable, clean and dry 13:17:01 Post Procedure Pulses reassessed and unchanged 13:17:03 Post-procedure physical assessment completed. ASA score P 2 - A patient with mild systemic disease as per Jamir Morrow MD. 13:17:05 Post procedure rhythm: unchanged. 13:17:09 Estimated blood loss: 10 ml 13:17:10 Post procedure instruction explained to patient.Patient verbalizes understanding. 13:17:10 Patient needs reinforcement of post procedure teaching. 13:17:33 Procedure type changed to Cath procedure, Diagnostic procedure, LHC, LHC w/Coronaries, Sedation Charges, Moderate Sedation up to 15 minutes, PCI procedure, Coronary Stent, Coronary Stent Initial, Peripheral Cath Diagnostic Procedure, Curing Room Supervisor Peripheral Procedures, Lyknp-Leppdfg-Red-Off 13:17:45 Procedure Complication : No complications 13:17:47 See physician's report for complete and final results. 13:17:50 EXOSEAL 6Fr (EX600) opened to sterile field. 13:18:15 Procedure and supply charges have been captured, reviewed, submitted and are correct. 13:20:00 Vital chart was stopped 13:20:31 Report given to Pre/Post Procedure Room. 13:20:34 Patient transfered to Pre/Post Procedure Room with Stretcher. 13:20:42 Procedure ended. 13:20:42 Full Disclosure recording stopped 13:20:46 End room use (Document Last) Intervention Summary Intervention Notes Time ActionType Lesion and Equipment Used Action# Pressure Duration Attributes 13:12:45 Discard SAMANTHA RX 2.0 x Stent 8 stent ([id number]) 13:14:02 Inflate 1st Diag EUPHORA 2.0 x 1 17 00:09 balloon 6 Balloon ([id number]) 13:15:19 Place stent 1st Diag SAMANTHA RX 2.0 x 2 13 00:06 8 stent ([id number]) Device Usage Item Name Manufacture Quantity Catalog Number Hospital Part Current M inimal Lot# / Charge Number Stock Stock Serial# Code ACIST Syringe Acist 1 00679 866546 164706 765309 2 0 (30288) Medical Systems Inc Bag Decanter Microtek 1 2001S 724177 56502 807799 5 () Medical Inc. Medline Cath Medline 1 [id number] 321484 40250 060865 5 Pack ([id number]) DIAGNOSTIC St Juan Francisco 1 010921 805709 597738 673489 3 0 WIRE .035 260cm J wire (225807) ACIST Hand Acist 1 28024 175383 732323 853098 5 Control Medical (96202) Systems Inc ACIST Manifold Acist 1 88678 432989 304555 246009 5 (37079) Medical Systems Inc DIAGNOSTIC Cardinal 1 JN2314 950253 66351 722633 3 0 Multipack 5Fr Health catheter set (MR2071) Tegaderm 4 x 4 3M 1 1626W 098499 653656 601470 5 (1626W) SHEATH 5FR Terumo 1 TAO852 442307 995022 085821 5 Randall (UTN102) MULTIPACK Cardinal 1 373620 5 Pigtail 5 Fr Health catheter MULTIPACK 3DRC Cardinal 1 869145 5 5Fr catheter Health MULTIPACK JL Cardinal 1 030149 5 4.0 5Fr Health catheter SHEATH 6FR Terumo 1 JLO912 679641 888411 395389 4 0 Randall (PDN794) INFLATOR Merit Merit 1 UX9592 910500 680219 623660 1 5 Somae HealthokTrellis Bioscience (BT9814) CHOICE PT Orosi 1 [id number] 763201 618973 129275 5 Extra Support Scientific 182cm wire ([id number]) GUIDE 6FR Cardinal 1 [id number] 800726 796889 616421 3 XBLAD 4.0 Health catheter ([id number]) SAMANTHA RX 2.0 x Medtronic 1 [id number] 271289 9191594 284831 5 [id number] 8 stent ([id number]) EUPHORA 2.0 x Medtronic 1 [id number] 012881 772553 612725 5 [id number] 6 Balloon ([id number]) EXOSEAL 6Fr Cardinal 1 EX600 352231 709795 100127 1 0 (EX600) Health Signature Audit [place] Stage Time Signature Unsigned Intra-Procedure 10/12/2018 Ayesha 1:21:22 PM Counts RT(R) Signatures Monitor : Ayesha Signature : Counts RT Date : Time : [facility] [address] [facility] [place] [address]
[~2018-10-11 13:27] MED LIST changes: +MIRALAX17 GM PO; +PHENERGAN25 M1 PO
[2018-10-11] MEDS ORDERED: LISINOPRIL20 MG PO (13:35)
[2018-10-11 14:12] LABS: BASOPHILS 0.2 % (0-2); EOSINOPHILS 2.3 % (0-7); HEMATOCRIT 48.9 % (36.0-48.0); HEMOGLOBIN 16.6 g/dL (12-16); IMMATURE GRANULOCYTES 0.3 % (0-5); LYMPHOCYTES 31.4 % (15-50); MCH 26.8 pg (26.0-34.0); MCHC 33.9 g/dL (31.0-37.0); MEAN PLATELET VOLUME 9.4 fL (7.4-10.4); MONOCYTES 8.7 % (2-11); NEUTROPHILS 57.1 % (40-80); PLATELET COUNT 206 10x3/uL (130-400); RBC 6.19 10x6/uL (4.00-5.40); RDW 15.2 % (11.5-14.5); WBC 10.1 10x3/uL (4.8-10.8)
[2018-10-11 14:14] VITALS: BP 175/97
[2018-10-11 14:22] LABS: INR 0.95 (0.85-1.17); PROTIME 12.2 SECONDS (11.6-15.0)
[2018-10-11 14:27] LABS: ALBUMIN 3.8 g/dL (3.4-5.0); ALKALINE PHOSPHATASE 189 U/L (46-116); ALT (SGPT) 218 U/L (10-68); BILIRUBIN - TOTAL 0.65 mg/dL (0.2-1.3); CALC OSMOLALITY 284 mosm/kg (275-300); CALCIUM 9.3 mg/dL (8.5-10.1); CARBON DIOXIDE 30.1 mmol/L (21.0-32.0); CHLORIDE - SERUM 103 mmol/L (98-107); CREATININE - SERUM 0.9 mg/dL (0.6-1.3); PROTEIN - SERUM 7.7 g/dL (6.4-8.2); SODIUM 142 mmol/L (136-145); UREA NITROGEN 16 mg/dL (7-18); eGFR NON AFRICAN AMERICAN 68 mL/min (90-120)
[2018-10-11 14:29] LABS: GLUCOSE 120 mg/dL (74-106)
[2018-10-11 14:37] LABS: CKMB 2.2 U/L (0.0-3.6); CREATINE KINASE 101 UL (21-215); MAGNESIUM - SERUM 2.1 mg/dL (1.8-2.4)
[2018-10-11 14:38] LABS: TROPONIN-I < 0.017 ng/mL (0.000-0.060)
[2018-10-11 20:00] VITALS: BP 176/102
[2018-10-11 20:09] LABS: CKMB 2.4 U/L (0.0-3.6); CREATINE KINASE 122 UL (21-215)
[2018-10-11 20:13] LABS: TROPONIN-I < 0.017 ng/mL (0.000-0.060)
[2018-10-11] MEDS ORDERED: ELAVIL10 MG PO (22:14)
[2018-10-11 22:37] VITALS: BP 176/102
[2018-10-11 23:52] VITALS: BP 100/47
[2018-10-12 02:14] LABS: CKMB 1.8 U/L (0.0-3.6); CREATINE KINASE 121 UL (21-215)
[2018-10-12 02:20] LABS: TROPONIN-I < 0.017 ng/mL (0.000-0.060)
[2018-10-12 05:23] VITALS: BP 152/83
[2018-10-12 07:22] LABS: BASOPHILS 0.3 % (0-2); EOSINOPHILS 3.7 % (0-7); HEMOGLOBIN 15.4 g/dL (12-16); IMMATURE GRANULOCYTES 0.4 % (0-5); LYMPHOCYTES 32.3 % (15-50); MCH 26.6 pg (26.0-34.0); MCHC 32.8 g/dL (31.0-37.0); MEAN PLATELET VOLUME 9.6 fL (7.4-10.4); MONOCYTES 10.1 % (2-11); NEUTROPHILS 53.2 % (40-80); PLATELET COUNT 180 10x3/uL (130-400); RBC 5.79 10x6/uL (4.00-5.40); RDW 15.6 % (11.5-14.5); WBC 7.9 10x3/uL (4.8-10.8)
[2018-10-12 07:42] LABS: ALBUMIN 3.2 g/dL (3.4-5.0); ALKALINE PHOSPHATASE 153 U/L (46-116); BILIRUBIN - TOTAL 0.52 mg/dL (0.2-1.3); CALC OSMOLALITY 287 mosm/kg (275-300); CALCIUM 8.9 mg/dL (8.5-10.1); CARBON DIOXIDE 31.4 mmol/L (21.0-32.0); CHLORIDE - SERUM 107 mmol/L (98-107); CKMB 1.8 U/L (0.0-3.6); CREATINE KINASE 91 UL (21-215); CREATININE - SERUM 0.9 mg/dL (0.6-1.3); GLUCOSE 104 mg/dL (74-106); POTASSIUM - SERUM 4.2 mmol/L (3.5-5.1); PROTEIN - SERUM 6.7 g/dL (6.4-8.2); SODIUM 144 mmol/L (136-145); UREA NITROGEN 14 mg/dL (7-18); eGFR NON AFRICAN AMERICAN 68 mL/min (90-120)
[2018-10-12 07:46] LABS: ALT (SGPT) 148 U/L (10-68); MCV 81.2 fL (80.0-100.0); TROPONIN-I < 0.017 ng/mL (0.000-0.060)
[2018-10-12 10:25] VITALS: BP 179/81
[2018-10-12 12:14] LABS: APPEARANCE CLEAR (CLEAR); COLOR YELLOW (YELLOW)
[2018-10-12 12:15] LABS: BILIRUBIN NEGATIVE (NEGATIVE); GLUCOSE NEGATIVE (NEGATIVE); KETONE NEGATIVE (NEGATIVE); NITRITE NEGATIVE (NEGATIVE); PROTEIN NEGATIVE (NEGATIVE); UROBILINOGEN NORMAL (NORMAL)
[2018-10-12 13:05] VITALS: BMI 38.6
--- NOTE | 2018-10-12 13:19 | HP ---
PATIENT: ADONIS DAVISON MEDICAL RECORD: [id number] ACCOUNT: [id number] LOCATION:D. D.2115 : 60 ADMISSION DATE: 10/11/18 PCP: LEE ANN BESS MD HISTORY AND PHYSICAL EXAMINATION DIAGNOSES: 1. Unstable angina. 2. Coronary artery disease. 3. Previous multivessel PTCA stent. 4. Hypertension. 5. COPD. 6. Past smoking history. HISTORY OF PRESENT ILLNESS: Mrs. Davison is known to us with a past history of multivessel coronary artery disease, had treatment for in-stent restenosis of 2 vessels in January of last year, done well until the past week. She has had increasing episodes of chest pain just like that of her previous angina. PHYSICAL EXAMINATION: GENERAL APPEARANCE: Well-nourished, well-developed, appears stated age. Level of distress, comfortable. PSYCHIATRIC: Mental status, alert, normal affect. Orientation, oriented to time, place and person. EYES: Lids and conjunctiva, noninjected. No discharge, no pallor. ENT: Lips, teeth, gums, normal dentition. Oropharynx, no cyanosis, no pallor. NECK: Carotid arteries, bilateral normal upstroke, no bruits, no thrills. JUGULAR VEINS: No jugular venous pressure or distention. CERVICAL LYMPH NODES: Nontender, nonenlarged. THYROID: Not enlarged. Nontender. No nodules. LUNGS: Respiratory effort, unlabored. CHEST: Normal curvature. No thoracic deformity. No chest wall tenderness. Percussion, resonant. Auscultation, clear. No wheezes, no rales, no rhonchi. CARDIOVASCULAR: Precordial exam, nondisplaced. No heaves or pericardial thrills. Rate and rhythm, regular. Heart sounds, normal S1, normal S2. No S3, no gallop, no rub. Systolic murmur, not heard. Diastolic murmur, not heard. EXTREMITIES: No cyanosis, no edema. Peripheral pulses, full and equal in all extremities, except as noted. No bruits appreciated. ABDOMEN: Soft, nondistended. Normal aorta. No bruit. Nontender. No masses. Liver, nontender, no hepatomegaly. Spleen, nontender, no splenomegaly. MUSCULOSKELETAL: No joint tenderness. No joint swelling. No erythema. NEUROLOGICAL: Normal gait, normal strength, normal tone. SKIN: Warm and dry. OVERALL IMPRESSION: Increasing angina in a patient with multivessel coronary disease. We will proceed with coronary angiography. Further care depends upon findings of the angiography. TRANSINT:[id number] Voice Confirmation ID: [id number] DOCUMENT ID: [id number] HISTORY AND PHYSICAL [id number] ADONIS DAVISON JEFFREY MD at 1319 CC: [id number] DICTATION DATE: 10/12/18911 GALVANIZING POT RUNNER: 10/12/18 1215 ADM IN [facility] [address] [place] [address]
--- NOTE | 2018-10-13 14:39 | OP ---
PATIENT NAME: ADONIS YEE MEDICAL RECORD: [id number] :60 LOCATION:[facility] ADMISSION DATE:10/11/18 SURGEON: MARYURI PRIEST MD DATE OF OPERATION: 10/12/2018 PROCEDURES: 1. PTCA and stent, LAD diagonal. 2. Left heart catheterization. 3. Selective coronary angiography. 4. Left ventriculogram. INDICATION: Angina and coronary artery disease. PROCEDURE IN DETAIL: After informed consent was obtained with detailed description of risks and benefits as well as alternative therapies, the patient elected to proceed with angiogram and angioplasty. The right femoral area was prepped and draped in normal sterile fashion. The right femoral artery was cannulated via modified Seldinger technique with placement of 6-Czech sheath. All catheters were exchanged through this sheath. FINDINGS: Left ventriculogram performed in standard 30-degree CONNOLLY view reveals good cardiac wall motion throughout all segments. Overall ejection fraction is estimated at 60%. SELECTIVE CORONARY ANGIOGRAPHY: 1. Left main is with no significant angiographic disease. 2. Left anterior descending has previously placed stents in LAD and diagonal. These are widely patent; however, after the diagonal stent, there is 90% stenosis. 3. Left circumflex has moderate irregularities, but no flow-limiting stenosis. Previously placed is widely patent. 4. Right coronary has previously placed stents. These are widely patent with no significant restenosis. No disease elsewise of the RCA or its branches. PTCA AND STENT OF THE LAD DIAGONAL: The stent used was 2.0 x 8 mm [place]. Result was 0% residual stenosis. OVERALL IMPRESSION: Successful PTCA and stent of the LAD diagonal, going from 90% initial stenosis to 0% residual. TRANSINT:[id number] Voice Confirmation ID: [id number] DOCUMENT ID: [id number] MARYURI PRIEST MD at 1439 CC: [id number] DICTATION DATE: 10/12/18 1328 [facility] FORMER: 10/12/18 1612 DIS IN 10/12/18 [facility] [address] [place] [id number]
--- NOTE | 2018-10-13 14:39 | DS ---
PATIENT:ADONIS DAVISON :60 MEDICAL RECORD: [id number] DISCHARGE SUMMARY ADMISSION DATE: 10/11/18 DISCHARGE DATE: 10/12/18 DATE OF SERVICE: 10/12/2018 DIAGNOSES: 1. Unstable angina. 2. PTCA stent of left circumflex this admission. 3. Coronary artery disease. 4. Hypertension. 5. Hyperlipidemia. 6. Obesity. HOSPITAL COURSE: Mrs. Davison presents with unstable anginal symptomatology, found to have disease of the circumflex, underwent successful PTCA stent of circumflex, discharged home with no change in her medications as she is already on aspirin and Plavix. Will follow up with [facility] in 1 month. TRANSINT:[id number] Voice Confirmation ID: [id number] DOCUMENT ID: [id number] MARYURI PRIEST MD at 1439 CC: [id number] DICTATION DATE: 10/12/18 1319 ORCHID TRANSPLANTER: 10/13/18 0911 DIS IN 10/12/18 [place] [address] [place] [address]
== END 2018-10-12 17:30 | disposition home or self-care (01) ==
LOC: D.ER 13:27 → D.EDHOLD 19:11 → D.M2 19:31 → D.CLR 10-12 13:35
PROVIDERS: Family Medicine; ADMIT Internal Medicine Interventional Cardiology
DX: I25.110 Atherosclerotic heart disease of native coronary artery with unstable angina pectoris (principal); I10 Essential (primary) hypertension; J44.9 Chronic obstructive pulmonary disease, unspecified; Z87.891 Personal history of nicotine dependence

== ENCOUNTER 2019-01-08 11:07 | Outpatient (CLI) | payer MEDICAID ==
[~2019-01-08] VITALS: Ht 157.5 cm; Wt 95.2 kg
--- NOTE | ~2019-01-08 | HEMODYNAMI ---
PATIENT:ADONIS YEE MEDICAL RECORD: [id number] : 60 [facility] [id number] ADMISSION DATE: 01/08/19 Generatedon:01/10/201914:56 Patient name: ADONIS YEE Patient #: [id number] : 1960 Date of study: 01/10/2019 Page: Of Hemodynamic Procedure Report Patient Data Patient Demographics Procedure consent was obtained First Name: ADONIS Gender: Female Last Name: JOSELITO : 1960 Middle Initial: CORINA Age: 58 year(s) Patient #: [id number] Race: SSN: [id number] Additional ID: [id number] Contact details Address: [address] [place] [address] State: [place] City: [facility] Zip code: [address] Past Medical History Allergies Allergen Reaction Date Comments Reported Other allergy 11/22/2015 Red Dye in Punch Admission Admission Data Admission Date: 01/08/2019 Admission Time: 11:07 Admit Source: Emergency department Room #: D.2115 Weight (lbs.): 210 Weight (kg.): 95.25 Lab Results Lab Result Date: 01/10/2019 Lab Result Time: 0:00 Biochemistry Name Units Result Min Max BUN mg/dl 15 --(--*-)-- 7 18 Creatinine mg/dl 1.1 --(--*-)-- 0.6 1.3 eGFR ml/min 54 *-(----)-- 90 120 NONAFRICAN CBC Name Units Result Min Max Hematocrit % 43.3 --(*---)-- 42 54 Hemoglobin g/dl 14.2 --(*---)-- 13.5 17.5 Procedure Procedure Types Cath Procedure Diagnostic Procedure LHC LHC w/Coronaries Sedation Charges Moderate Sedation up to 15 minutes Procedure Description Procedure Date Procedure Date: 01/10/2019 Procedure Start Time: 14:37 Procedure End Time: 14:54 Procedure Staff Name Function Donis Jackman MD Performing Physician Emma Heath RT Monitor Jodie Sosa RN Nurse Roman Abraham RT Scrub Procedure Data Cath Procedure Fluoroscopy Diagnostic fluoroscopy Total fluoroscopy Time: 3.5 time: 3.5 min min Diagnostic fluoroscopy Total fluoroscopy dose: 755 dose: 755 mGy mGy Contrast Material Contrast Material Type Amount (ml) Isovue 300 70 Entry Location Entry Primary Successful Side Size Upsize Upsize Entry Closure Succes sful Closure Location (Fr) 1 (Fr) 2 (Fr) Remarks Device Remarks Femoral Right 5 Fr Exoseal artery Estimated blood loss: 10 ml Diagnostic catheters Device Type Used For End Catheter Placement MULTIPACK 3DRC 5Fr Procedure catheter MULTIPACK JL 4.0 5Fr Procedure catheter MULTIPACK Pigtail 5 Fr Procedure catheter Procedure Complications No complications Procedure Medications Medication Administration Route Dosage 0.9% NaCl I.V. 100 ml/hr Oxygen etCO2 Nasal cannula 2 l/min Lidocaine 2% added to field 20 Heparin Flush Bag added to field 2 bags (1000units/500ml NS) Versed I.V. 2 mg Fentanyl I.V. 50 mcg Versed I.V. 2 mg Fentanyl I.V. 50 mcg Fentanyl I.V. 50 mcg Fentanyl I.V. 50 mcg Hemodynamics Rest HGB: 14.2 (g/dl) Heart Rate: 50 (bpm) Pressure Samples Time Site Value (mmHg) Purpose Heart Use Rate(bpm) 14:47 LV 157/7,26 Snapshot 53 14:48 AO 128/63(90) Pullback 55 14:48 LV 145/7,23 Pullback 55 Gradients Valve Time Site 1 Site 2 Mean SEP/DFP Peak To Heart Use (mmHg) (sec/min) Peak Rate (mmHg) (bpm) Aortic 14:48 LV AO 20 19 17 55 145/7,23 128/63(90) Calculations Valve P-P Mean Valve Index Valve Source Name Gradient Area Flow (cm2) Aortic 17 20 17 20 Snapshots Pre Cath Intra NCS Post Cath Vital Signs Time Heart Resp SPO2 etCO2 NIBP (mmHg) Rhythm Pain Sedation Rate (ipm) (%) (mmHg) Status Level (bpm) 14:30:31 50 16 97 44 146/72(115) SB 0 (11) 10(A) , No pain 14:35:30 48 15 98 35 Measuring SB 0 (11) 10(A) , No pain 14:36:09 50 18 98 44 137/77(110) SB 0 (11) 10(A) , No pain 14:40:47 49 17 96 41 133/72(97) SB 0 (11) 10(A) , No pain 14:45:24 52 16 98 22.3 136/72(98) SB 0 (11) 10(A) , No pain 14:50:00 53 19 98 33.5 154/79(107) SB 0 (11) 10(A) , No pain 14:54:41 53 20 99 19.3 158/86(135) SB 0 (11) 10(A) , No pain Medications Time Medication Route Dose Verified Delivered Reason Notes Eff ectiveness by by 14:29:07 0.9% NaCl I.V. 100 Donis Jodie used for ml/hr Gasper Sosa digital printer 14:29:14 Oxygen etCO2 2 Donis Jodie used for Nasal l/min Gasper Sosa procedure cannula RN 14:29:18 Lidocaine 2% added 20ml Donis Donis for local to vial Gasper Jackman MD anesthetic field 14:29:25 Heparin Flush added 2 Donis Donis used for Bag to bags Gasper Jackman MD procedure (1000units/500ml field NS) 14:34:03 Fentanyl I.V. 50 Donis Jodie for mcg Gasper Sosa sedation RN 14:34:04 Versed I.V. 2 mg Donis Jodie for Gasper Sosa sedation RN 14:40:09 Versed I.V. 2 mg Donis Jodie for Gasper Sosa sedation RN 14:40:13 Fentanyl I.V. 50 Donis Jodie for mcg Gasper Sosa sedation RN 14:45:13 Fentanyl I.V. 50 Donis Jodie for mcg Gasper Sosa sedation RN 14:49:14 Fentanyl I.V. 50 Donis Jodie for mcg Gasper Sosa sedation operations vice president Log Time Note 14:10:28 Jodie Sosa RN sent for patient. Start room use. 14:21:04 Informed consent obtained and on chart 14:21:24 Admit Source: Emergency department 14:21:27 Diagnostic Cath status Urgent 14:21:33 Time tracking: Regular hours (M-F 7:00 - 5:00) 14:21:36 Plan of Care:Hemodynamics will remain stable., Cardiac rhythm will remain stable., Comfort level will be maintained., Respiratory function will remain adequate., Patient/ family verbilizes understanding of procedure., Procedure tolerated without complication., Recovers from procedure without complications.. 14:21:41 Patient received from Med II to CCL 1 Alert and oriented. Tansferred to table in Supine position. 14:21:42 Warm blankets applied, and kallie hugger turned on for patient comfort. 14:21:43 Correct patient and procedure confirmed by team. 14:21:48 ECG and BP/O2 sat monitors applied to patient. 14:21:49 Pre-procedure instructions explained to patient. 14::49 Pre-op teaching completed and patient verbalized understanding. 14:21:51 Family in patients room. 14:21:53 Patient NPO since Breakfast. 14:28:55 Vital chart was started 14:29:07 0.9% NaCl 100 ml/hr I.V. was administered by Jodie Sosa RN; used for procedure; 14:29:13 Baseline sample Acquired. 14:29:14 Oxygen 2 l/min etCO2 Nasal cannula was administered by Jodie Sosa RN; used for procedure; 14:29:16 Rhythm: sinus bradycardia 14:29:17 Full Disclosure recording started 14:29:18 Lidocaine 2% 20ml vial added to field was administered by Donis Jackman MD; for local anesthetic; 14:29:25 Heparin Flush Bag (1000units/500ml NS) 2 bags added to field was administered by Donis Jackman MD; used for procedure; 14:29:27 Is patient on blood thinner?Yes 14:29:29 ACC The patient was administered the following blood thiners within the last 24 hours: ACCPlavix 14:29:31 Patient diabetic? No. 14:29:34 Patient not . Patient is over age 55. 14:29:48 Previous problem with sedation/anesthesia? No ? 14:29:49 Snore? Yes 14:29:50 Sleep apnea? No 14:29:52 Deviated septum? No 14:29:52 Opens mouth fully? Yes 14:29:53 Sticks out tongue? Yes 14:29:56 Airway obstruction? Yes COPD 14:30:10 Pre procedure: right dorsailis pedis pulse 2+ Normal; easily identifiable; not easily obliterated 14:30:14 Patient pain scale 0/10 ?. 14:30:21 IV patent on arrival in left forearm with 0.9% NaCl at [facility]. ::33 Lab Result : BUN 15 mg/dl : Lab Result : eGFR NONAFRICAN 54 ml/min 14: Lab Result : Creatinine 1.1 mg/dl Lab Result : Hematocrit 43.3 % :: Lab Result : Hemoglobin 14.2 g/dl 14:36 Lab results completed and on chart. 14:31:39 Right groin area was prepped with chlora-prep and draped in sterile fashion 14::40 Alarms reviewed by R. N. 14:31:40 Sharps counted by scrub and verified by R.N. 14:31:44 Use device set Femoral Dx 14:31:45 ACIST Syringe (50823) opened to sterile field. 14:31:46 Bag Decanter (2002S) opened to sterile field. 14:31:47 ACIST Hand Control (04550) opened to sterile field. 14:31:47 ACIST Manifold (65913) opened to sterile field. 14:31:48 Tegaderm 4 x 4 (1626W) opened to sterile field. 14:31:50 Medline Cath Pack ([id number]) opened to sterile field. 14:31:51 DIAGNOSTIC Multipack 5Fr catheter set ([id number]) opened to sterile field. 14:31:52 SHEATH 5FR Tempe (XRO877) opened to sterile field. 14:31:53 EMERALD Guide Wire (427-142) opened to sterile field. 14:32:04 Patient Weight : 210 lbs 14:33:42 --------ALL STOP TIME OUT------ 14:33:43 Final Timeout: patient, procedure, and site verified with staff and physician. All members of the team are in agreement. 14:33:44 Right groin site verified by team. 14:33:47 Fire Safety Assessment: A--An alcohol-based skin anteseptic being used preoperatively., C--Open oxygen or nitrous oxide is being used., D--An ESU, laser, or fiber-optic light is being used. 14:33:50 Physical assessment completed. ASA score P 2 - A patient with mild systemic disease as per Donis Jackman MD. 14:33:54 3a) 45-59 Moderately reduced kidney function. 14:33:57 Maximum allowable contrast does (3.7 X eGFR X 0.75)150 ml. 14:34:00 Sedation plan: IV Moderate Sedation Medication:Versed, Fentanyl 14:34:03 Fentanyl 50 mcg I.V. was administered by Jodie Sosa RN; for sedation; 14:34:04 Versed 2 mg I.V. was administered by Jodie Sosa RN; for sedation; 14:37:30 Procedure started. 14:37:35 Local anesthetic to right femoral artery with Lidocaine 2% by Donis Jackman MD.INITIAL ACCESS ONLY 14:39:16 A 5 Fr sheath was inserted into the Right Femoral artery 14:40:09 Versed 2 mg I.V. was administered by Jodie Sosa RN; for sedation; 14:40:13 Fentanyl 50 mcg I.V. was administered by Jodie Sosa RN; for sedation; 14:40:37 A MULTIPACK 3DRC 5Fr catheter was advanced over the wire and used for Procedure. 14:41:37 RCA angiography performed. 14:41:59 Catheter exchanged over wire. 14:42:45 A MULTIPACK JL 4.0 5Fr catheter was advanced over the wire and used for Procedure. 14:44:50 LCA angiography performed. 14:44:52 Catheter exchanged over wire. 14:45:13 Fentanyl 50 mcg I.V. was administered by Jodie Sosa RN; for sedation; 14:45:20 A MULTIPACK Pigtail 5 Fr catheter was advanced over the wire and used for Procedure. 14:46:18 LV gram done using CONNOLLY 14:46:21 Injector settings: Ml/sec: 10, Volume: 20, 14:47:39 LV hemodynamics recorded. 14:47:48 EF : 60 % 14:48:09 Catheter removed. 14:48:22 EXOSEAL 5Fr (EX500) opened to sterile field. 14:49:14 Fentanyl 50 mcg I.V. was administered by Jodie Sosa RN; for sedation; 14:49:34 Sheath removed intact; hemostasis achieved with Exoseal to the Right Femoral artery. 14:50:01 Procedure ended.(Physican Out) 14:50:49 Fluoroscopy time 03.50 minutes. 14:50:53 Flurop Dose total: 755 14:50:53 Fluoroscopy dose: 755 mGy 14:50:57 Contrast amount:Isovue 300 70ml. 14:50:58 Sharps counted by scrub and verified by R.N. 14:51:01 Post-op/insertion site Right Femoral artery dressed using a 4 x 4 and Tegaderm. 14:51:10 Post-procedure physical assessment completed. ASA score P 2 - A patient with mild systemic disease as per Donis Jackman MD. 14:51:12 Post procedure rhythm: sinus bradycardia 14:51:15 Estimated blood loss: 10 ml 14:51:17 Post procedure instruction explained to patient.Patient verbalizes understanding. 14:51:17 Patient needs reinforcement of post procedure teaching. 14:51:57 Procedure type changed to Cath procedure, Diagnostic procedure, LHC, LHC w/Coronaries, Sedation Charges, Moderate Sedation up to 15 minutes 14:52:18 Procedure and supply charges have been captured, reviewed, submitted and are correct. 14:52:21 Procedure Complication : No complications 14:54:13 See physician's report for complete and final results. 14:54:16 Report given to [facility]. 14:54:16 Vital chart was stopped 14:54:19 Patient transfered to [facility] II with Bed. 14:54:21 Procedure ended. 14:54:21 Full Disclosure recording stopped 14:54:25 End room use (Document Last) Device Usage Item Name Manufacture Quantity Catalog Hospital Part Current Minimal L ot# / Number Charge Number Stock Stock Serial# Code ACIST Acist 1 07459 305771 460561 439965 20 Syringe Medical (15075) Systems Inc Bag Microtek 1 421710 59663 314718 5 Decanter Medical Inc. () ACIST Hand Acist 1 49160 154629 590982 864278 5 Control Medical (30502) Systems Inc ACIST Acist 1 43074 031424 852516 612373 5 Manifold Medical (99578) Systems Inc Tegaderm 4 3M 1 1626W 187598 759581 731924 5 x 4 (1626W) Medline Medline 1 [id number] 244981 04328 492417 5 Cath Pack ([id number]) DIAGNOSTIC Cardinal 1 HT5127 233549 05163 165922 30 Multipack Health 5Fr catheter set (UX9193) SHEATH 5FR Terumo 1 IXH967 785583 371530 532127 5 [place]pe (YRO353) EMERALD Cardinal 1 624-623 881464 087813 110492 5 Guide Wire Health (388-992) MULTIPACK Cardinal 1 166132 5 3DRC 5Fr Health catheter MULTIPACK Cardinal 1 719784 5 JL 4.0 5Fr Health catheter MULTIPACK Cardinal 1 113738 5 Pigtail 5 Health Fr catheter EXOSEAL 5Fr Cardinal 1 EX500 137605 848763 769846 10 (EX500) Health Signature Audit Frederick Stage Time Signature Unsigned Intra-Procedure 01/10/2019 Emma Heath 2:56:02 PM RT(R) Signatures Performing Physician : Signature : Donis Jackman MD Date : Time : Monitor : Emma Heath Signature : RT Date : Time : Nurse : Jodie Sosa RN Signature : Date : Time : [facility] [address] [place] [address]
[~2019-01-08 11:07] MED LIST changes: +ELAVIL10 MG PO; +LISINOPRIL20 MG PO
[2019-01-08 11:48] LABS: BASOPHILS 0.2 % (0-2); EOSINOPHILS 2.6 % (0-7); HEMATOCRIT 45.7 % (36.0-48.0); HEMOGLOBIN 15.6 g/dL (12-16); IMMATURE GRANULOCYTES 0.3 % (0-5); LYMPHOCYTES 22.7 % (15-50); MCH 27.4 pg (26.0-34.0); MCHC 34.1 g/dL (31.0-37.0); MCV 80.2 fL (80.0-100.0); MEAN PLATELET VOLUME 9.1 fL (7.4-10.4); MONOCYTES 5.2 % (2-11); PLATELET COUNT 208 10x3/uL (130-400); RDW 14.2 % (11.5-14.5); WBC 9.8 10x3/uL (4.8-10.8)
[2019-01-08 12:04] LABS: APTT 34.3 SECONDS (22.8-39.4); INR 1.05 (0.85-1.17); PROTIME 13.2 SECONDS (11.6-15.0)
[2019-01-08 12:19] LABS: ALBUMIN 3.7 g/dL (3.4-5.0); ALKALINE PHOSPHATASE 113 U/L (46-116); ALT (SGPT) 23 U/L (10-68); BILIRUBIN - TOTAL 0.41 mg/dL (0.2-1.3); CALC OSMOLALITY 279 mosm/kg (275-300); CALCIUM 8.7 mg/dL (8.5-10.1); CARBON DIOXIDE 25.4 mmol/L (21.0-32.0); CHLORIDE - SERUM 102 mmol/L (98-107); CKMB 1.2 U/L (0.0-3.6); CREATINE KINASE 173 UL (21-215); CREATININE - SERUM 1.3 mg/dL (0.6-1.3); GLUCOSE 146 mg/dL (74-106); MAGNESIUM - SERUM 1.8 mg/dL (1.8-2.4); PROTEIN - SERUM 7.2 g/dL (6.4-8.2); SODIUM 139 mmol/L (136-145); UREA NITROGEN 9 mg/dL (7-18); eGFR NON AFRICAN AMERICAN 44 mL/min (90-120)
[2019-01-08 12:45] LABS: POTASSIUM - SERUM 2.7 mmol/L (3.5-5.1); TROPONIN-I < 0.017 ng/mL (0.000-0.060)
[2019-01-08 13:47] VITALS: BP 118/70; Ht 157.5 cm; Wt 95.2 kg
--- NOTE | 2019-01-08 14:09 | NUR ---
PT ARRIVED FROM ER VIA WC. MONITOR ON WITH RATE OF 48 AND SINUS BRADYCARDIA. PT IS AWAKE AND ORIENTED. NO DISTRESS NOTED. SEE ADMISSION ASSESSMENT FOR FURTHER EVAL.
[2019-01-08 19:13] LABS: CREATINE KINASE 132 UL (21-215)
[2019-01-08 19:14] LABS: TROPONIN-I < 0.017 ng/mL (0.000-0.060)
[2019-01-08 20:00] VITALS: BP 107/68
--- NOTE | 2019-01-08 20:13 | NUR ---
INITIAL ROUNDS AND ASSESSMENT COMPLETED. PT RESTING WITH NO DISTRESS. CPOC.
[2019-01-08 23:40] LABS: CKMB 0.7 U/L (0.0-3.6); CREATINE KINASE 111 UL (21-215); TROPONIN-I < 0.017 ng/mL (0.000-0.060)
[2019-01-09] VITALS: BP 98/50; BP 99/49
--- NOTE | 2019-01-09 03:06 | NUR ---
PT RESTING IN BED WITH NO DISTRESS .NO REPORTS OF CHEST PAIN. 52/SB PER TELEMETRY. CALL LIGHT IN REACH. CPOC.
[2019-01-09 03:27] LABS: BASOPHILS 0.4 % (0-2); EOSINOPHILS 4.3 % (0-7); HEMATOCRIT 41.1 % (36.0-48.0); HEMOGLOBIN 13.6 g/dL (12-16); IMMATURE GRANULOCYTES 0.6 % (0-5); MCH 26.7 pg (26.0-34.0); MCHC 33.1 g/dL (31.0-37.0); MCV 80.7 fL (80.0-100.0); MEAN PLATELET VOLUME 9.2 fL (7.4-10.4); MONOCYTES 11.4 % (2-11); NEUTROPHILS 48.3 % (40-80); PLATELET COUNT 205 10x3/uL (130-400); RBC 5.09 10x6/uL (4.00-5.40); RDW 14.2 % (11.5-14.5); WBC 10.2 10x3/uL (4.8-10.8)
[2019-01-09 03:59] LABS: ALBUMIN 3.2 g/dL (3.4-5.0); ALKALINE PHOSPHATASE 93 U/L (46-116); ALT (SGPT) 20 U/L (10-68); BILIRUBIN - TOTAL 0.33 mg/dL (0.2-1.3); CALCIUM 8.3 mg/dL (8.5-10.1); CARBON DIOXIDE 28.8 mmol/L (21.0-32.0); CHLORIDE - SERUM 103 mmol/L (98-107); CKMB 0.8 U/L (0.0-3.6); CREATINE KINASE 102 UL (21-215); CREATININE - SERUM 1.2 mg/dL (0.6-1.3); GLUCOSE 116 mg/dL (74-106); POTASSIUM - SERUM 3.1 mmol/L (3.5-5.1); PROTEIN - SERUM 6.2 g/dL (6.4-8.2); SODIUM 141 mmol/L (136-145); TROPONIN-I < 0.017 ng/mL (0.000-0.060); eGFR NON AFRICAN AMERICAN 49 mL/min (90-120)
[2019-01-09 04:00] LABS: CALC OSMOLALITY 283 mosm/kg (275-300); UREA NITROGEN 17 mg/dL (7-18)
--- NOTE | 2019-01-09 04:00 | NUR ---
AWAKE WITH C/O NAUSEA. MEDICATED WITH ZOFRAN ODT. PT IS STILL NPO UNTIL SEEN BY DATA OPERATIONS DIRECTOR IN AM.
--- NOTE | 2019-01-09 07:15 | NUR ---
RECEIVED PT IN BED AAOX4 RESP UNLABORED SKIN W/D COLOR WNL WILL CONTINUE TO MONITOR
[2019-01-09 08:52] VITALS: BP 103/43
[2019-01-09 09:35] LABS: ANION GAP 9.7 mmol/L (8-16); CALCIUM 8.8 mg/dL (8.5-10.1); CARBON DIOXIDE 32.7 mmol/L (21.0-32.0); CREATININE - SERUM 1.2 mg/dL (0.6-1.3); POTASSIUM - SERUM 3.4 mmol/L (3.5-5.1)
[2019-01-09 13:19] VITALS: BP 106/57
[2019-01-09 16:29] VITALS: BP 113/56
[2019-01-09 20:00] VITALS: BP 134/73
--- NOTE | 2019-01-09 20:00 | NUR ---
PT ALERT/ORIENTED AND RESTING IN BED. ASKING FOR BEDTIME MEDS ON FIRST ROUND AND ALSO ALREADY WANTING HER TYLENOL #3 FOR PAIN. INSTRUCTED ON NPO AFTER MIDNIGHT FOR AM HEART CATH. MONITOR AND CPOC.
--- NOTE | 2019-01-09 22:15 | NUR ---
BEDTIME MEDS HAVE BEEN GIVEN AND REQUESTED TYLENOL #3 ALSO GIVEN. PT EATING FREDY CRACKERS. NO OTHER NEEDS VOICED.
[2019-01-10] VITALS: BP 118/59
[2019-01-10 04:13] VITALS: BP 102/43
[2019-01-10 05:16] LABS: BASOPHILS 0.4 % (0-2); EOSINOPHILS 4.9 % (0-7); HEMATOCRIT 43.3 % (36.0-48.0); HEMOGLOBIN 14.2 g/dL (12-16); IMMATURE GRANULOCYTES 0.5 % (0-5); LYMPHOCYTES 43.2 % (15-50); MCH 26.8 pg (26.0-34.0); MCHC 32.8 g/dL (31.0-37.0); MCV 81.7 fL (80.0-100.0); MEAN PLATELET VOLUME 9.3 fL (7.4-10.4); MONOCYTES 11.5 % (2-11); NEUTROPHILS 39.5 % (40-80); PLATELET COUNT 187 10x3/uL (130-400); RDW 14.7 % (11.5-14.5)
[2019-01-10 05:17] LABS: WBC 7.3 10x3/uL (4.8-10.8)
[2019-01-10 05:20] LABS: ALBUMIN 3.3 g/dL (3.4-5.0); ANION GAP 9.7 mmol/L (8-16); BILIRUBIN - TOTAL 0.28 mg/dL (0.2-1.3); CALCIUM 8.7 mg/dL (8.5-10.1); CARBON DIOXIDE 30.1 mmol/L (21.0-32.0); CREATININE - SERUM 1.1 mg/dL (0.6-1.3); POTASSIUM - SERUM 3.8 mmol/L (3.5-5.1); PROTEIN - SERUM 6.5 g/dL (6.4-8.2)
--- NOTE | 2019-01-10 05:37 | NUR ---
NO CHANGE FROM INITIAL SHIFT ASSESSMENT. PT HAS BEEN NPO SINCE MIDNIGHT. SHE WAS INSTRUCTED ON NEED FOR HIBICLENS BATH AND TOLD BARREL LATHE OPERATOR OUTSIDE THAT SHE WILL DO IT AT 0715 BECAUSE SHE KNOWS SHE IS NOT FIRST ON THE CATH LIST. NONLABORED RESPIRATIONS. NO VERBALIZATIONS OF CHEST PAIN. CPOC.
--- NOTE | 2019-01-10 07:57 | NUR ---
NPO FOR LHC. DOES NOT WANT SCDS. CALL LIGHT IN REACH. WILL CONT. PLAN OF CARE.
[2019-01-10 09:12] VITALS: BP 114/66
--- NOTE | 2019-01-10 14:37 | NUR ---
PRE-OPS GIVEN. TO SOLAR MAINTENANCE TECHNICIAN BY BED.
--- NOTE | 2019-01-10 15:14 | NUR ---
BACK FROM ANTIQUE AUTO MUSEUM MAINTENANCE WORKER. VS WNL. RIGHT GROIN STABLE WITHOUT BLEEDING OR HEMATOMA NOTED. WILL MONITOR.
--- NOTE | 2019-01-10 17:27 | NUR ---
BED REST UP. GROIN STABLE.
--- NOTE | 2019-01-10 18:02 | NUR ---
IV AND TELEMETRY DCD. DC PLANS GIVEN. UNDERSTANDING VOICED. ESCORTED TO CAR BY W/C.
== END 2019-01-10 18:03 | disposition home or self-care (01) ==
LOC: D.M2 11:07 → D.ER 11:07 → D.OPS 11:07 → D.M2 13:05 → EDSTATUS 13:14 → D.OPS 01-10 18:03
PROVIDERS: Emergency Medicine; Family Medicine Adult Medicine; ATTEND Internal Medicine Cardiovascular Disease
DX: I25.110 Atherosclerotic heart disease of native coronary artery with unstable angina pectoris (principal); Z95.5 Presence of coronary angioplasty implant and graft; Z01.812 Encounter for preprocedural laboratory examination

== ENCOUNTER 2019-01-17 00:11 | Inpatient (IN) | payer MEDICAID ==
[~2019-01-17] VITALS: Ht 157.5 cm; Wt 94.5 kg
[2019-01-17] VITALS (8 sets, daily range): BP systolic 98–148; BP diastolic 43–123; Ht 157.5 cm; Wt 94.5 kg
[2019-01-17 00:47] LABS: HEMATOCRIT 41.2 % (36.0-48.0); HEMOGLOBIN 13.9 g/dL (12-16); MCH 27.1 pg (26.0-34.0); MCHC 33.7 g/dL (31.0-37.0); MCV 80.5 fL (80.0-100.0); MEAN PLATELET VOLUME 9.7 fL (7.4-10.4); PLATELET COUNT 174 10x3/uL (130-400); RBC 5.12 10x6/uL (4.00-5.40); RDW 14.7 % (11.5-14.5); WBC 23.2 10x3/uL (4.8-10.8)
[2019-01-17 01:06] LABS: ALBUMIN 3.5 g/dL (3.4-5.0); ALKALINE PHOSPHATASE 163 U/L (46-116); ALT (SGPT) 50 U/L (10-68); CALC OSMOLALITY 272 mosm/kg (275-300); CALCIUM 8.4 mg/dL (8.5-10.1); CARBON DIOXIDE 19.7 mmol/L (21.0-32.0); CHLORIDE - SERUM 95 mmol/L (98-107); CREATININE - SERUM 4.2 mg/dL (0.6-1.3); GLUCOSE 103 mg/dL (74-106); POTASSIUM - SERUM 5.4 mmol/L (3.5-5.1); PROTEIN - SERUM 7.1 g/dL (6.4-8.2); SODIUM 128 mmol/L (136-145); UREA NITROGEN 57 mg/dL (7-18); eGFR NON AFRICAN AMERICAN 11 mL/min (90-120)
[2019-01-17 01:12] LABS: LIPASE 106 U/L (73-393); MAGNESIUM - SERUM 1.9 mg/dL (1.8-2.4); PRO BNP 1034 pg/mL (0-125); THYROID STIMULATING HORMONE 2.28 uIU/mL (0.36-3.74); TROPONIN-I < 0.017 ng/mL (0.000-0.060)
[2019-01-17 01:13] LABS: APPEARANCE HAZY (CLEAR); BILIRUBIN NEGATIVE (NEGATIVE); COLOR YELLOW (YELLOW); GLUCOSE NEGATIVE (NEGATIVE); KETONE NEGATIVE (NEGATIVE); NITRITE NEGATIVE (NEGATIVE); PROTEIN TRACE mg/dL (NEGATIVE); UROBILINOGEN NORMAL (NORMAL)
[2019-01-17 01:14] LABS: AMORPHOUS SEDIMENT <1+ /lpf (NONE SEEN); BACTERIA FEW /hpf (NONE SEEN); EPITHELIAL CELLS 0-5 /hpf (0-5); RED CELLS - URINE NONE SEEN /hpf (0-5); WHITE CELLS - URINE 0-5 /hpf (0-5)
[2019-01-17 01:18] LABS: LYMPHOCYTES 10 % (15-50); MONOCYTES 3 % (2-11); NEUTROPHILS 80 % (40-80); PLATELET ESTIMATE DECREASED
[2019-01-17 01:21] LABS: UDS - AMPHET NEGATIVE QUAL (NEGATIVE); UDS - BARB NEGATIVE QUAL (NEGATIVE); UDS - BENZO POSITIVE QUAL (NEGATIVE); UDS - COCAINE NEGATIVE QUAL (NEGATIVE); UDS - OPIATE POSITIVE QUAL (NEGATIVE); UDS - PCP NEGATIVE QUAL (NEGATIVE); UDS - THC NEGATIVE QUAL (NEGATIVE)
--- NOTE | 2019-01-17 02:33 | NUR ---
ROOM ASSIGNMENT MADE AT 0127. PER DR MAKI, AWAITING CT RESULTS BEFORE GIVING LOVENOX, THEN CAN TRANSPORT TO ROOM.
--- NOTE | 2019-01-17 04:48 | NUR ---
ADMIT TO ROOM 2126 FROM ER AT 0330. PER STRETCHER. ABLE TO SLIDE OVER TO BED. ALERT/ORIENTED. PT WAS INPATIENT HERE LAST WEEK AND REMEMBERS THIS NURSE. TELEMETRY INITIATED. 72/SR. IVF NS @ 125ML/HR INITIATED TO IV IN RIGHT SHOULDER. ALSO HAS A PIV TO RIGHT A/C. ADMISSION ASSESSMENT AND HISTORY COMPLETED. HOME MEDS UPDATED/REVIEWED. PLAN OF CARE INITIATED.
--- NOTE | 2019-01-17 05:22 | NUR ---
NOTED ORDER FOR LR AT 50ML/HR ON EMAR. NEW BAG OF FLUIDS UP AND INFUSING AT THIS TIME.
[2019-01-17 13:14] LABS: CREATINE KINASE 107 UL (21-215)
[2019-01-17 13:15] LABS: CKMB 0.3 U/L (0.0-3.6); TROPONIN-I < 0.017 ng/mL (0.000-0.060)
--- NOTE | 2019-01-17 14:11 | NUR ---
I have reviewed this patient and I concur with the Shift Assessment completed by the Licensed Practical Nurse today this shift.
--- NOTE | 2019-01-17 20:31 | NUR ---
RECIEVED SITTING UP ON SIDE OF BED. ALERT AND ORIENTED X4. UP AD NIALL. IV TO RIGHT SHOULDER WITH NS @ 125/HR. AND IV TO RIGHT AC SL.. SPUTUM AND U/A COLLECTED AND SENT TO LAB. TELEMETRY IN PLACE. DENIES ANY NEEDS AT THIS TIME.
[2019-01-18] VITALS: BP 128/68
[2019-01-18 04:00] VITALS: BP 112/54
[2019-01-18 06:22] LABS: BASOPHILS 0.1 % (0-2); EOSINOPHILS 0.3 % (0-7); HEMATOCRIT 36.8 % (36.0-48.0); HEMOGLOBIN 12.2 g/dL (12-16); IMMATURE GRANULOCYTES 0.4 % (0-5); LYMPHOCYTES 5.5 % (15-50); MCH 26.9 pg (26.0-34.0); MCHC 33.2 g/dL (31.0-37.0); MCV 81.2 fL (80.0-100.0); MEAN PLATELET VOLUME 10.2 fL (7.4-10.4); MONOCYTES 9.4 % (2-11); NEUTROPHILS 84.3 % (40-80); PLATELET COUNT 169 10x3/uL (130-400); RBC 4.53 10x6/uL (4.00-5.40)
[2019-01-18 06:36] LABS: ALBUMIN 2.9 g/dL (3.4-5.0); ANION GAP 14.9 mmol/L (8-16); BILIRUBIN - TOTAL 0.44 mg/dL (0.2-1.3); CALCIUM 8.2 mg/dL (8.5-10.1); CARBON DIOXIDE 21.7 mmol/L (21.0-32.0); MAGNESIUM - SERUM 2.3 mg/dL (1.8-2.4); PHOSPHOROUS 4.5 mg/dL (2.5-4.9); POTASSIUM - SERUM 4.6 mmol/L (3.5-5.1); PROTEIN - SERUM 6.4 g/dL (6.4-8.2)
[2019-01-18 06:37] LABS: WBC 17.2 10x3/uL (4.8-10.8)
[2019-01-18 06:46] LABS: CREATININE - SERUM 2.3 mg/dL (0.6-1.3)
--- NOTE | 2019-01-18 07:40 | NUR ---
ASSESSMENT DONE. DENIES NEEDS.
[2019-01-18 08:07] VITALS: BP 86/39
--- NOTE | 2019-01-18 10:29 | NUR ---
I have reviewed this patient and I concur with the Shift Assessment completed by the Licensed Practical Nurse today this shift.
[2019-01-18 12:22] VITALS: BP 89/58
[2019-01-18 16:19] VITALS: BP 124/56
--- NOTE | 2019-01-18 17:07 | NUR ---
WITHOUT CHANGES OR DISTRESS NOTED AT THIS TIME. DENIES NEEDS
--- NOTE | 2019-01-18 18:19 | MORECARE ---
CASE MANAGEMENT DISCHARGE SUMMARY PATIENT: ADONIS YEE UNIT: [id number] ADM DATE: 01/17/19 AGE: 58 : 60 SEX: F ROOM/BED: D.8036 AUTHOR: JACKY KING PHYSICIAN: REFERRING PHYSICIAN: OVI WESTFALL MD DATE OF SERVICE: 01/18/19 Discharge Plan Patient Name: ADONIS YEE Facility: [facility]:[place] : 1960 Planned Disposition: Home Anticipated Discharge Date: Discharge Date: Expected LOS: Initial Reviewer: [email or web address] Initial Review Date: 01/17/2019 Generated: 01/18/19 7:19 pm DCPIA - Discharge Planning Initial Assessment Updated by [email or web address]: Radha Mccauley on 01/18/19 6:16 pm * Is the patient Alert and Oriented? Yes * How many steps to enter\exit or inside your home? 15 * PCP MARIA ALEJANDRA * Pharmacy [place] * Preadmission Environment Home with Family * ADLs Independent * Other Equipment HOME 02 AND NEBULIZER * List name and contact numbers for known caregivers / representatives who currently or will assist patient after discharge: BRITTANIE YEE - [facility] - [phone] * Verbal permission to speak to the caregivers and representatives has been obtained from the patient. N/A * Community resources currently utilized None * Additional services required to return to the preadmission environment? No * Can the patient safely return to the preadmission environment? Yes * Has this patient been hospitalized within the prior 30 days at any hospital? No Patient Name: ADONIS YEE Page [phone] at 1819 All edits/amendments must be made on the electronic document DICTATION DATE: 01/18/191818 OPERATIONS SUPPORT PROFESSIONALS: BOUBACAR 01/18/191818 RPT#: [id number] DC DATE: STATUS: ADM IN [facility] [address] [place] [address] END OF REPORT
--- NOTE | 2019-01-18 18:26 | MORECARE ---
CASE MANAGEMENT DISCHARGE SUMMARY PATIENT: ADONIS YEE UNIT: [id number] ADM DATE: 01/17/19 AGE: 58 : 60 SEX: F ROOM/BED: D.6635 AUTHOR: JACKY KING PHYSICIAN: REFERRING PHYSICIAN: OVI WESTFALL MD DATE OF SERVICE: 01/18/19 Discharge Plan Patient Name: ADONIS YEE Facility: [facility]:[place] : 1960 Planned Disposition: Home Anticipated Discharge Date: Discharge Date: Expected LOS: Initial Reviewer: [email or web address] Initial Review Date: 01/17/2019 Generated: 01/18/19 7:25 pm Comments DCP- Discharge Planning Updated by [email or web address]: Radha Mccauley on 01/18/19 5:[address] Patient Name: ADONIS YEE Admission Status: ER Accout number: [id number] Admission Date: 01-17-2019 : 1960 Admission Diagnosis: Attending: OVI WESTFALL Current LOS: 1 Anticipated DC Date: Planned Disposition: Home Primary Insurance: MEDICAID [place] CM met with patient to complete initial dc planning assessment. CM educated patient on the CM role and verbal consent given by patient to complete assessment. Patient lives at home with her sister where she is independent with her care. At discharge patient plans to return home and feels this is a safe discharge. CM discussed availability of home health, rehab services, and medical equipment. Her family will drive her home. Patient has a nebulizer and home o2 ( [employer] ) Patient denied known discharge needs at this time. CM will continue to follow and will assist as needed with dc plans/needs. Chief Clinical Officer: Radha Mccauley DCPIA - Discharge Planning Initial Assessment Updated by [email or web address]: Radha Mccauley on 01/18/19 6:16 pm * Is the patient Alert and Oriented? Yes * How many steps to enter\exit or inside your home? 15 * PCP MARIA ALEJANDRA * Pharmacy [facility] * Preadmission Environment Home with Family * ADLs Independent * Other Equipment HOME 02 AND NEBULIZER * List name and contact numbers for known caregivers / representatives who currently or will assist patient after discharge: BRITTANIE YEE - SISTER - [phone] * Verbal permission to speak to the caregivers and representatives has been obtained from the patient. N/A * Community resources currently utilized None * Additional services required to return to the preadmission environment? No * Can the patient safely return to the preadmission environment? Yes * Has this patient been hospitalized within the prior 30 days at any hospital? No Last DP export: 01/18/19 5:19 p Patient Name: ADONIS YEE Page 52566 at 1826 All edits/amendments must be made on the electronic document DICTATION DATE: 01/18/191824 SENIOR GOVERNMENT PROGRAM ANALYST: BOUBACAR 01/18/191824 RPT#: [id number] DC DATE: STATUS: ADM IN [facility] [address] [place] [address] END OF REPORT
[2019-01-18 20:00] VITALS: BP 153/77
--- NOTE | 2019-01-18 21:48 | NUR ---
RECIEVED SITTING UP ON SIDE OF BED. ALERT AND ORIENTED AT THIS TIME. APOLOGIZING FOR LAST NIGHTS BEHAVIOR. 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 IV TO RIGHT SHOULDER WITH NS @ 125CC/HR. TELEMETRY IN PLACEE. DENIES ANY NEEDS AT THIS TIME.
--- NOTE | 2019-01-18 22:16 | NUR ---
PT STATES SHE IS STARTING TO FEEL STRANGE. UNKNOWN WHY. SHE HAD EPISODE LAST NIGHT AND APPEARS MAY HAVE ONE TONIGHT. WILL CONT TO OBSERVE FOR BEHAVIORS. O2 SAT 97 AND HR 77.
[2019-01-19] VITALS: BP 115/71
[2019-01-19 04:00] VITALS: BP 153/79
[2019-01-19 06:25] LABS: BASOPHILS 0.1 % (0-2); EOSINOPHILS 1.6 % (0-7); HEMATOCRIT 36.7 % (36.0-48.0); HEMOGLOBIN 12.2 g/dL (12-16); IMMATURE GRANULOCYTES 0.3 % (0-5); LYMPHOCYTES 12.1 % (15-50); MCH 27.1 pg (26.0-34.0); MCHC 33.2 g/dL (31.0-37.0); MCV 81.4 fL (80.0-100.0); MONOCYTES 9.3 % (2-11); NEUTROPHILS 76.6 % (40-80); PLATELET COUNT 202 10x3/uL (130-400); RBC 4.51 10x6/uL (4.00-5.40); RDW 15.1 % (11.5-14.5); WBC 15.2 10x3/uL (4.8-10.8)
[2019-01-19 06:58] LABS: ANION GAP 13.6 mmol/L (8-16); CALCIUM 8.5 mg/dL (8.5-10.1); CARBON DIOXIDE 25.5 mmol/L (21.0-32.0); MAGNESIUM - SERUM 2.5 mg/dL (1.8-2.4); PHOSPHOROUS 2.3 mg/dL (2.5-4.9); POTASSIUM - SERUM 4.1 mmol/L (3.5-5.1)
--- NOTE | 2019-01-19 07:30 | NUR ---
REPORT RECIEVED. PT LYING ON RIGHT SIDE. RR EVEN AND UNLABOR. NO DISTRESS NOTED. R AC INFUSING NS @125. PT ON TELEMETRY. WILL CTM
[2019-01-19 08:44] VITALS: BP 115/67
[2019-01-19 12:27] VITALS: BP 119/72
--- NOTE | 2019-01-19 15:28 | NUR ---
I have reviewed this patient and I concur with the Shift Assessment completed by the Licensed Practical Nurse today this shift.
--- NOTE | 2019-01-19 19:05 | NUR ---
EVENING ROUNDS MADE. PATIENT A/OX4, DANGLING AT BEDSIDE, UP AD NIALL. DROPLET PRECAUTIONS FOLLOWED. PATIENT HAS IV TO RT AC, PATENT, DRSG C/D/I, NS@125ML/HR. BREATHING EVEN AND UNLABORED, NO S/SX OF DISTRESS NOTED. PATIENT DENIES NEEDS AT THIS TIME. CL IN REACH, BED LOCKED AND LOWERED. FALL PRECAUTIONS FOLLOWED. WILL CTM.
[2019-01-19 20:00] VITALS: BP 112/61
--- NOTE | 2019-01-19 20:18 | NUR ---
PATIENT REQUESTED SOMETHING FOR ANXIETY, INFORMED PATIENT SHE HAS PRN ATIVAN. MED ADMINISTERED PER ORDER. CL IN REACH, BED LOCKED AND LOWERED. WILL CTM.
[2019-01-20] VITALS: BP 128/85
--- NOTE | 2019-01-20 00:45 | NUR ---
I have reviewed this patient and I concur with the Shift Assessment completed by the Licensed Practical Nurse today this shift.
--- NOTE | 2019-01-20 00:46 | NUR ---
I have reviewed this patient and I concur with the Shift Assessment completed by the Licensed Practical Nurse today this shift.
[2019-01-20 04:00] VITALS: BP 144/81
--- NOTE | 2019-01-20 04:15 | NUR ---
PATIENT IV CAME OUT. ATTEMPTS TO RESITE WERE UNSUCCESSFUL. PATIENT MAY NEED VASCULAR ACCESS. PATIENT DENIES FURTHER NEEDS AT THIS TIME. CL IN REACH, BED LOCKED AND LOWERED. WILL CTM.
--- NOTE | 2019-01-20 05:34 | NUR ---
22G PLACED LEFT AC ONE ATTEMPT
--- NOTE | 2019-01-20 05:38 | NUR ---
IV STARTED IN LT AC, NS@125/HR. PATIENT DENIES FURTHER NEEDS AT THIS TIME. CL IN REACH, BED LOCKED AND LOWERED. WILL CTM.
--- NOTE | 2019-01-20 07:22 | NUR ---
ROUNDING DONE WITH PATIENT LAYING ON RIGHT SIDE, EYES CLOSED. RESP ARE EVEN. 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 ON ROOM AIR. ON HEART MONITOR. ON EP, NO LABS SEEN AT THIS TIME. LEFT AC SEEN WITH NS INFUSING AT 125 CC/HR.
[2019-01-20 10:00] LABS: BASOPHILS 0.1 % (0-2); EOSINOPHILS 3.9 % (0-7); HEMOGLOBIN 12.6 g/dL (12-16); IMMATURE GRANULOCYTES 1.7 % (0-5); LYMPHOCYTES 20.2 % (15-50); MCH 27.8 pg (26.0-34.0); MCHC 34.1 g/dL (31.0-37.0); MCV 81.7 fL (80.0-100.0); MEAN PLATELET VOLUME 9.4 fL (7.4-10.4); MONOCYTES 11.6 % (2-11); NEUTROPHILS 62.5 % (40-80); PLATELET COUNT 194 10x3/uL (130-400); RBC 4.53 10x6/uL (4.00-5.40); RDW 14.7 % (11.5-14.5)
[2019-01-20 10:05] LABS: WBC 7.8 10x3/uL (4.8-10.8)
[2019-01-20 10:26] LABS: CALCIUM 8.8 mg/dL (8.5-10.1); PHOSPHOROUS 2.3 mg/dL (2.5-4.9)
[2019-01-20 10:30] LABS: MAGNESIUM - SERUM 1.7 mg/dL (1.8-2.4)
--- NOTE | 2019-01-20 10:32 | NUR ---
EP RESULTS ARE BACK: k+ 4.0 MAG 1.7 PHOS 2.3 WILL COVER WITH ORAL SUPPLEMENTS PER PROTOCOL.
[2019-01-20] MEDS ORDERED: VIBRAMYCIN 100100 MG PO (11:39)
[2019-01-20 11:40] VITALS: BP 141/81
--- NOTE | 2019-01-20 12:11 | NUR ---
IV FLUIDS CONVERTED TO SALINE LOCK PATIENT IS BEING DISCHARGED HOME.
--- NOTE | 2019-01-20 13:25 | NUR ---
VERBAL AND WRITTEN DISCHARGE INSTRUCTIONS GIVEN TO PATIENT. SALINE LOCK FROM RIGHT SHOULDER AND LEFT AC BOTH REMOVED WITH CATH TIP INTACT. DISCHARGED HOME VIA WHEELCHAIR.
--- NOTE | 2019-01-20 15:09 | MORECARE ---
CASE MANAGEMENT DISCHARGE SUMMARY PATIENT: ADONIS YEE UNIT: [id number] ADM DATE: 01/17/19 AGE: 58 : 60 SEX: F ROOM/BED: D.0485 AUTHOR: CHRISTINEDOC PHYSICIAN: REFERRING PHYSICIAN: OVI WESTFALL MD DATE OF SERVICE: 01/20/19 Discharge Plan Patient Name: ADONIS YEE Facility: [facility]:[place] : 1960 Planned Disposition: Home Anticipated Discharge Date: 01/20/19 Discharge Date: 01/20/2019 Expected LOS: 3 Initial Reviewer: [email or web address] Initial Review Date: 01/17/2019 Generated: 01/20/19 4:09 pm Comments DCP- Discharge Planning Updated by [email or web address]: Radha Mccauley on 01/18/19 5:[address] Patient Name: ADONIS YEE Admission Status: ER Accout number: [id number] Admission Date: 01-17-2019 : 1960 Admission Diagnosis: Attending: OVI WESTFALL Current LOS: 1 Anticipated DC Date: Planned Disposition: Home Primary Insurance: MEDICAID [place] CM met with patient to complete initial dc planning assessment. CM educated patient on the CM role and verbal consent given by patient to complete assessment. Patient lives at home with her sister where she is independent with her care. At discharge patient plans to return home and feels this is a safe discharge. CM discussed availability of home health, rehab services, and medical equipment. Her family will drive her home. Patient has a nebulizer and home o2 ( [employer] ) Patient denied known discharge needs at this time. CM will continue to follow and will assist as needed with dc plans/needs. Water Pipe Installer: Radha Mccauley DCPIA - Discharge Planning Initial Assessment Updated by [email or web address]: Radha Mccauley on 01/18/19 6:16 pm * Is the patient Alert and Oriented? Yes * How many steps to enter\exit or inside your home? 15 * PCP MARIA ALEJANDRA * Pharmacy [facility] * Preadmission Environment Home with Family * ADLs Independent * Other Equipment HOME 02 AND NEBULIZER * List name and contact numbers for known caregivers / representatives who currently or will assist patient after discharge: BRITTANIE Schofield [facility] - [phone] * Verbal permission to speak to the caregivers and representatives has been obtained from the patient. N/A * Community resources currently utilized None * Additional services required to return to the preadmission environment? No * Can the patient safely return to the preadmission environment? Yes * Has this patient been hospitalized within the prior 30 days at any hospital? No Last DP export: 01/18/19 5:26 p Patient Name: ADONIS YEE Page 15819 at 1509 All edits/amendments must be made on the electronic document DICTATION DATE: 01/20/19 150 TREATER: BOUBACAR 01/20/19 1509 RPT#: [id number] DC DATE:01/20/19 STATUS: DIS IN [facility] [address] [place] [address] END OF REPORT
== END 2019-01-20 13:29 | disposition home or self-care (01) | DRG 641 ==
LOC: D.ER 00:11 → D.M2 01:18
PROVIDERS: Family Medicine; ADMIT Internal Medicine Nephrology; ATTEND Internal Medicine Nephrology
DX: E87.1 Hypo-osmolality and hyponatremia (principal); N17.9 Acute kidney failure, unspecified; K59.00 Constipation, unspecified; I25.10 Atherosclerotic heart disease of native coronary artery without angina pectoris; J44.9 Chronic obstructive pulmonary disease, unspecified; I10 Essential (primary) hypertension

== ENCOUNTER 2019-03-31 14:11 | Inpatient (IN) | payer MEDICAID ==
[~2019-03-31] VITALS: Ht 157.5 cm; Wt 86.8 kg
[~2019-03-31 14:11] MED LIST changes: +VIBRAMYCIN 100100 MG PO
--- NOTE | 2019-03-31 14:25 | NUR ---
SURGERY FOR BRAIN TUMOR IS APRIL 07.
[2019-03-31] MEDS ORDERED: HYDROCODON-ACE1 EA10 PO (15:14)
[2019-03-31 16:21] LABS: HEMATOCRIT 53.5 % (36.0-48.0); HEMOGLOBIN 17.7 g/dL (12-16); MCH 27.4 pg (26.0-34.0); MCHC 33.1 g/dL (31.0-37.0); MCV 82.8 fL (80.0-100.0); MEAN PLATELET VOLUME 9.1 fL (7.4-10.4); PLATELET COUNT 289 10x3/uL (130-400); RBC 6.46 10x6/uL (4.00-5.40); RDW 14.8 % (11.5-14.5); WBC 23.7 10x3/uL (4.8-10.8)
[2019-03-31 16:26] VITALS: BP 107/74
[2019-03-31 16:35] LABS: ALBUMIN 4.2 g/dL (3.4-5.0); BILIRUBIN - TOTAL 0.66 mg/dL (0.2-1.3); CALCIUM 9.3 mg/dL (8.5-10.1); CARBON DIOXIDE 27.7 mmol/L (21.0-32.0); CREATININE - SERUM 1.6 mg/dL (0.6-1.3); POTASSIUM - SERUM 3.7 mmol/L (3.5-5.1); PROTEIN - SERUM 7.9 g/dL (6.4-8.2)
[2019-03-31 16:38] LABS: LYMPHOCYTES 7 % (15-50); MONOCYTES 1 % (2-11); NEUTROPHILS 90 % (40-80)
[2019-03-31 16:39] LABS: PLATELET ESTIMATE NORMAL; ROULEAUX OCC; TARGET CELLS 1+
[2019-03-31 16:40] LABS: TEAR DROP CELLS OCC
--- NOTE | 2019-03-31 19:15 | NUR ---
PT UP TO RESTROOM.
[2019-03-31 19:45] VITALS: BP 113/67
--- NOTE | 2019-03-31 20:01 | NUR ---
PT PROVIDED WITH WATER AND BLANKETS AT THIS TIME.
[2019-03-31 20:59] VITALS: BP 106/69
--- NOTE | 2019-03-31 21:08 | NUR ---
PT UP TO RESTROOM AT THIS TIME.
[2019-03-31 21:41] LABS: APPEARANCE CLEAR (CLEAR); BILIRUBIN NEGATIVE (NEGATIVE); COLOR YELLOW (YELLOW); GLUCOSE NEGATIVE (NEGATIVE); KETONE NEGATIVE (NEGATIVE); NITRITE NEGATIVE (NEGATIVE); PROTEIN TRACE mg/dL (NEGATIVE); SPECIFIC GRAVITY 1.005 (1.005-1.020); UROBILINOGEN NORMAL (NORMAL)
--- NOTE | 2019-03-31 21:45 | NUR ---
INFUSION OF FLAGYL COMPLETE AT THIS TIME.
--- NOTE | 2019-03-31 21:45 | NUR ---
INFUSION OF FLAGYL COMPLETE AT THIS TIME.
[2019-03-31 22:18] VITALS: BP 142/75; Ht 157.5 cm; Wt 86.8 kg
[2019-04-01] VITALS (7 sets, daily range): BP systolic 109–174; BP diastolic 48–76
--- NOTE | 2019-04-01 07:10 | NUR ---
REPORT RECIEVED FROM HIGH SCHOOL AUTO REPAIR TEACHER AND PATIENT CARE ASSUMED. PATIENT LAYING IN BED AWAKE, ALERT AND ORIENTED X 4. PATIENT IS STABLE AND VSS. PATIENT COMPLAINS OF PAIN. WILL MEDICATE PER MAR. SR UP X 2 BED IN LOW POSITION AND CALL LIGHT IN REACH.
[2019-04-01 07:46] LABS: BASOPHILS 0.2 % (0-2); EOSINOPHILS 1.6 % (0-7); HEMATOCRIT 43.1 % (36.0-48.0); HEMOGLOBIN 14.2 g/dL (12-16); IMMATURE GRANULOCYTES 0.2 % (0-5); LYMPHOCYTES 17.3 % (15-50); MCH 27.2 pg (26.0-34.0); MCHC 32.9 g/dL (31.0-37.0); MCV 82.6 fL (80.0-100.0); MEAN PLATELET VOLUME 9.4 fL (7.4-10.4); MONOCYTES 9.6 % (2-11); NEUTROPHILS 71.1 % (40-80); PLATELET COUNT 238 10x3/uL (130-400); RBC 5.22 10x6/uL (4.00-5.40); RDW 14.7 % (11.5-14.5)
[2019-04-01 07:52] LABS: WBC 9.2 10x3/uL (4.8-10.8)
[2019-04-01 07:55] LABS: INR 1.14 (0.85-1.17); PROTIME 14.1 SECONDS (11.6-15.0)
[2019-04-01 07:56] LABS: APTT 34.4 SECONDS (22.8-39.4)
[2019-04-01 07:58] LABS: ANION GAP 11.5 mmol/L (8-16); CALCIUM 8.5 mg/dL (8.5-10.1); CREATININE - SERUM 1.3 mg/dL (0.6-1.3); MAGNESIUM - SERUM 1.9 mg/dL (1.8-2.4); PHOSPHOROUS 3.8 mg/dL (2.5-4.9); POTASSIUM - SERUM 3.5 mmol/L (3.5-5.1)
--- NOTE | 2019-04-01 09:37 | NUR ---
GAVE ROUTINE MEDS. PATIENT COMPLAINED OF PAIN . MEDICATED PER MAR WITH MORPHINE. WILL CONTINUE TO MONITOR. SR UP X 2 BED IN LOW POSITION AND CALL LIGHT IN REACH.
[2019-04-01 13:09] LABS: BASOPHILS 0.3 % (0-2); EOSINOPHILS 2.3 % (0-7); HEMATOCRIT 43.9 % (36.0-48.0); HEMOGLOBIN 14.3 g/dL (12-16); IMMATURE GRANULOCYTES 0.1 % (0-5); LYMPHOCYTES 25.7 % (15-50); MCH 26.8 pg (26.0-34.0); MCHC 32.6 g/dL (31.0-37.0); MCV 82.2 fL (80.0-100.0); MEAN PLATELET VOLUME 9.2 fL (7.4-10.4); MONOCYTES 7.9 % (2-11); NEUTROPHILS 63.7 % (40-80); PLATELET COUNT 230 10x3/uL (130-400); RBC 5.34 10x6/uL (4.00-5.40); RDW 14.6 % (11.5-14.5)
--- NOTE | 2019-04-01 15:26 | NUR ---
PATIENT RESTING QUIETLY IN BED WITH EYES CLOSED AND BREATHING EVENLY. WILL CONTINUE TO MONITOR. SR UP X 2 BED IN LOW POSITION AND CALL LIGHT IN REACH.
--- NOTE | 2019-04-01 19:35 | NUR ---
EVENING ROUNDS COMPLETED. VSS, AAOX3, NO S/S OF DISTRESS. PT DENIES ANY NEED FOR PAIN AT THIS TIME. WILL CTM. CL WITHIN REACH, BED IN LOW, SR UP X2.
--- NOTE | 2019-04-01 19:51 | MORECARE ---
CASE MANAGEMENT DISCHARGE SUMMARY PATIENT: ADONIS YEE UNIT: [id number] ADM DATE: 03/31/19 AGE: 59 : 60 SEX: F ROOM/BED: D.1212 AUTHOR: CHRISTINEDOC PHYSICIAN: REFERRING PHYSICIAN: JAKOB MELENDEZ MD DATE OF SERVICE: 04/01/19 Discharge Plan Patient Name: ADONIS YEE Facility: [facility]:[place] : 1960 Planned Disposition: Home Anticipated Discharge Date: Discharge Date: Expected LOS: Initial Reviewer: [email or web address] Initial Review Date: 04/01/2019 Generated: 04/01/19 8:51 pm Comments DCP- Discharge Planning Updated by [email or web address]: Radha Mccauley on 04/01/19 6:[address] Patient Name: ADONIS YEE Admission Status: ER Accout number: [id number] Admission Date: 03-31-2019 : 1960 Admission Diagnosis: Attending: JAKOB MELENDEZ Current LOS: 1 Anticipated DC Date: Planned Disposition: Home Primary Insurance: MEDICAID [place] Discharge Planning Comments: CM met with patient to complete initial dc planning assessment. CM educated patient on the CM role and verbal consent given by patient to complete assessment. Patient lives at home with her sister or her mother where she is independent with her care. At discharge patient plans to return home and feels this is a safe discharge. CM discussed availability of home health, rehab services, and medical equipment. Patient states she will have family drive her home. Patient has home o2 concentrator ( unknown provider) Patient states she hasn't used it in over a year. Patient denied known discharge needs at this time. CM will continue to follow and will assist as needed with dc plans/needs. Lead Atg Developer: Radha Mccauley DCPIA - Discharge Planning Initial Assessment Updated by [email or web address]: Radha Mccauley on 04/01/19 7:46 pm * Is the patient Alert and Oriented? Yes * How many steps to enter\exit or inside your home? 10- * PCP MARIA ALEJANDRA * Pharmacy [facility] * Preadmission Environment Home with Family * ADLs Independent * Equipment Oxygen * List name and contact numbers for known caregivers / representatives who currently or will assist patient after discharge: BRITTANIE YEE - [facility]- [phone] * Verbal permission to speak to the caregivers and representatives has been obtained from the patient. Yes * Community resources currently utilized None * Additional services required to return to the preadmission environment? No * Can the patient safely return to the preadmission environment? Yes * Has this patient been hospitalized within the prior 30 days at any hospital? No Patient Name: ADONIS YEE Page 06967 at 1950 All edits/amendments must be made on the electronic document DICTATION DATE: 04/01/191950 COOLER OPERATOR: BOUBACAR 04/01/191950 RPT#: [id number] UT DATE: STATUS: ADM IN [facility] [address] [place] [address] END OF REPORT
[2019-04-02 04:32] VITALS: BP 145/75
[2019-04-02 06:18] LABS: BASOPHILS 0.5 % (0-2); EOSINOPHILS 4.4 % (0-7); HEMOGLOBIN 12.7 g/dL (12-16); IMMATURE GRANULOCYTES 0.3 % (0-5); LYMPHOCYTES 28.4 % (15-50); MCH 26.7 pg (26.0-34.0); MCHC 31.8 g/dL (31.0-37.0); MEAN PLATELET VOLUME 9.4 fL (7.4-10.4); MONOCYTES 13.4 % (2-11); PLATELET COUNT 204 10x3/uL (130-400); RBC 4.76 10x6/uL (4.00-5.40); RDW 14.7 % (11.5-14.5); WBC 6.2 10x3/uL (4.8-10.8)
[2019-04-02 06:31] LABS: ANION GAP 10.8 mmol/L (8-16); CALCIUM 8.6 mg/dL (8.5-10.1); CARBON DIOXIDE 27.8 mmol/L (21.0-32.0); MAGNESIUM - SERUM 1.7 mg/dL (1.8-2.4); PHOSPHOROUS 3.6 mg/dL (2.5-4.9); POTASSIUM - SERUM 3.6 mmol/L (3.5-5.1)
--- NOTE | 2019-04-02 07:10 | NUR ---
REPORT RECEIVED FROM TELEPHONE INFORMATION CLERK AND PATIENT CARE ASSUMED. PATIENT SITTING UP IN BED AWAKE, ALERT AND ORIENTED X 4. PATIENT STATES NOT FEELING GOOD SHE DID YESTERDAY. WHEN QUESTIONED FURTHER, PATIENT "NOTHING SPECIFIC JUST DOESNT FEEL GOOD YESTERDAY." OTHERWISE PATIENT IS STABLE AND VSS. WILL CONTINUE WITH PLAN OF CARE. SR UP X 2 BED IN LOW POSITION AND CALL LIGHT IN REACH.
--- NOTE | 2019-04-02 08:30 | NUR ---
ROUTINE MEDS GIVEN. IN ADDITION MORPHINE PER MAR FOR PAIN AND MAG OX 400 MG OF FOR LOW MAG. WILL CONTINUE TO MONITOR. SR UP X 2 BED IN LOW POSITION AND CALL LIGHT IN REACH.
--- NOTE | 2019-04-02 11:16 | NUR ---
PROVIDED PATIENT WITH ADDITIONAL SPRITE REQUESTED. PATIENT DENIES ANY OTHER NEEDS OR PAIN. WILL CONTINUE TO MONITOR. SR UP X 2 BED IN LOW POSTION AND CALL LIGHT IN REACH.
[2019-04-02 12:19] VITALS: BP 117/65
--- NOTE | 2019-04-02 12:45 | NUR ---
MEDICATED PATIENT FOR PAIN PER MAR WITH MORPHINE. PATIENT IS OTHERWISE STABLE AND VSS. WILL CONTINUE TO MONITOR. SR UP X 2 BED IN LOW POSITION AND CALL LIGHT IN REACH.
--- NOTE | 2019-04-02 14:50 | NUR ---
PATIENT REQUESTS CHICKEN BROTH AND SPRITE. PATIENT STATES FEELING BETTER AND IS HUNGRY. ORDER PUT INTO DIETARY.
--- NOTE | 2019-04-02 15:35 | NUR ---
DR SHAH IN ROOM. NEW ORDER RECEIVED. PATIENT MAY ADVANCE TO FULL LIQIUDS. ORDER PUT IN.
[2019-04-02 16:15] VITALS: BP 137/71
--- NOTE | 2019-04-02 16:48 | NUR ---
PATIENT COMPLAINS OF A HEADACHE AT A 10. MEDICATED PER MAR WITH MORPHINE 2 MG IV. PATIENT TOLERATED WELL. WILL CONTINUE TO MONITOR. SR UP X 2 BED IN LOW POSITION AND CALL LIGHT IN REACH.
[2019-04-02 19:28] VITALS: BP 145/82
--- NOTE | 2019-04-02 19:45 | NUR ---
RECIEVED BEDSIDE REPORT. RECIEVED UP IN BED WITH EYES OPEN AND TV ON. ALERT AND ORIENTED X4. IV TO RIGHT AC WITH NS@ INFUSING @100CC/HR. DSG CLEAN DRY AND INTACT. REFUSES SCD'C. C/O HEADACHE. TYLENOL GIVEN PER ORDERS. WILL REASSESS. DENIES ANY OTHER NEEDS. WILL CONT. POC.
[2019-04-03 00:51] VITALS: BP 112/60
[2019-04-03 04:49] VITALS: BP 123/65
[2019-04-03 06:45] LABS: BASOPHILS 0.4 % (0-2); EOSINOPHILS 4.9 % (0-7); HEMATOCRIT 40.6 % (36.0-48.0); HEMOGLOBIN 12.6 g/dL (12-16); IMMATURE GRANULOCYTES 0.4 % (0-5); LYMPHOCYTES 48.9 % (15-50); MCH 26.4 pg (26.0-34.0); MCV 84.9 fL (80.0-100.0); MEAN PLATELET VOLUME 9.3 fL (7.4-10.4); MONOCYTES 12.3 % (2-11); NEUTROPHILS 33.1 % (40-80); PLATELET COUNT 183 10x3/uL (130-400); RBC 4.78 10x6/uL (4.00-5.40); RDW 14.5 % (11.5-14.5); WBC 5.4 10x3/uL (4.8-10.8)
[2019-04-03 06:57] LABS: ANION GAP 10.7 mmol/L (8-16); CALCIUM 8.3 mg/dL (8.5-10.1); CARBON DIOXIDE 27.2 mmol/L (21.0-32.0); MAGNESIUM - SERUM 1.7 mg/dL (1.8-2.4); PHOSPHOROUS 3.2 mg/dL (2.5-4.9); POTASSIUM - SERUM 3.9 mmol/L (3.5-5.1)
[2019-04-03 07:59] VITALS: BP 161/87
--- NOTE | 2019-04-03 08:00 | NUR ---
PT SITTING UP IN BED. STUTTER WHEN TALKING. MORPHINE GIVEN PER MD ORDER FOR PAIN"03/08 IN HEAD." NO S/S OF ACUTE DISTRESS. CL IN PLACE.
--- NOTE | 2019-04-03 08:54 | NUR ---
HELD PLAVIX PER PT, "DR JIMENEZ WANTS ME TO HOLD MY PLAVIX TODAY UNTIL SURGERY."
[2019-04-03 11:51] VITALS: BP 149/80
[2019-04-03 15:41] VITALS: BP 184/116
--- NOTE | 2019-04-03 16:15 | NUR ---
CALLED KHOI ABOUT 184/116. DC PREVIOUS LISINOPRIL ORDERS. LISINOPRIL 30 MG QD. LISINOPRIL 20 MG X 1 NOW.
--- NOTE | 2019-04-03 16:46 | NUR ---
RECHECKED BP 180/73. NO S/S OF ACUTE DISTRESS.CL IN PLACE.
--- NOTE | 2019-04-03 18:29 | NUR ---
PT RESTING IN BED. NO S/S OF ACUTE DISTRESS. CL IN PLACE.
[2019-04-03 20:28] VITALS: BP 160/77
[2019-04-04 01:10] VITALS: BP 121/60
[2019-04-04 06:23] LABS: BASOPHILS 0.4 % (0-2); EOSINOPHILS 5.6 % (0-7); HEMATOCRIT 42.4 % (36.0-48.0); HEMOGLOBIN 13.3 g/dL (12-16); IMMATURE GRANULOCYTES 0.2 % (0-5); LYMPHOCYTES 40.4 % (15-50); MCH 26.5 pg (26.0-34.0); MCHC 31.4 g/dL (31.0-37.0); MCV 84.5 fL (80.0-100.0); MEAN PLATELET VOLUME 9.6 fL (7.4-10.4); MONOCYTES 10.5 % (2-11); NEUTROPHILS 42.9 % (40-80); PLATELET COUNT 198 10x3/uL (130-400); RBC 5.02 10x6/uL (4.00-5.40); RDW 14.3 % (11.5-14.5); WBC 4.8 10x3/uL (4.8-10.8)
[2019-04-04 06:35] LABS: ANION GAP 10.9 mmol/L (8-16); CALCIUM 8.4 mg/dL (8.5-10.1); CARBON DIOXIDE 30.4 mmol/L (21.0-32.0); CREATININE - SERUM 0.9 mg/dL (0.6-1.3); MAGNESIUM - SERUM 1.6 mg/dL (1.8-2.4); PHOSPHOROUS 3.5 mg/dL (2.5-4.9)
[2019-04-04 06:44] LABS: POTASSIUM - SERUM 3.3 mmol/L (3.5-5.1)
--- NOTE | 2019-04-04 07:10 | NUR ---
REPORT RECEIVED FROM BARREL INSPECTOR AND PATIENT CARE ASSUMED. PATIENT LAYING IN BED AWAKE ALERT AND ORIENTED X 4. PATIENT IS STABLE AND VSS. GAVE PATIENT COKE AND SPRITE REQUESTED. WILL CONTINUE WITH PLAN OF CARE. SR UP X 2 BED IN LOW POSTION AND CALL LIGHT IN REACH.
[2019-04-04] MEDS ORDERED: LEVOFLOXACIN500 MG PO (08:41)
[2019-04-04] MEDS ORDERED: FLAGYL500 MG PO (08:42)
[2019-04-04 08:43] VITALS: BP 186/98
--- NOTE | 2019-04-04 09:19 | MORECARE ---
CASE MANAGEMENT DISCHARGE SUMMARY PATIENT: ADONIS YEE UNIT: [id number] ADM DATE: 03/31/19 AGE: 59 : 60 SEX: F ROOM/BED: D.1212 AUTHOR: JACKY KING PHYSICIAN: REFERRING PHYSICIAN: JAKOB MELENDEZ MD DATE OF SERVICE: 04/04/19 Discharge Plan Patient Name: ADONIS YEE Facility: [facility]:[place] : 1960 Planned Disposition: Home Anticipated Discharge Date: Discharge Date: Expected LOS: Initial Reviewer: [email or web address] Initial Review Date: 04/01/2019 Generated: 04/04/19 10:19 am Comments DCP- Discharge Planning Updated by [id number]: Claribel De Santiago on 04/04/19 8:[address] Patient Name: ADONIS YEE Encounter No: [id number] : 1960 Primary Insurance: MEDICAID [place] Anticipated DC Date: Planned Disposition: Home External Planned Provider: : DCP follow-up note: Patient and family in agreement with discharge plan. No changes to plan. Case management will follow and assist as needed. Claribel De Santiago DCP- Discharge Planning Updated by [email or web address]: Radha Mccauley on 04/01/19 6:[address] Patient Name: ADONIS YEE Admission Status: ER Accout number: [id number] Admission Date: 03-31-2019 : 1960 Admission Diagnosis: Attending: JAKOB MELENDEZ Current LOS: 1 Anticipated DC Date: Planned Disposition: Home Primary Insurance: MEDICAID [place] Discharge Planning Comments: CM met with patient to complete initial dc planning assessment. CM educated patient on the CM role and verbal consent given by patient to complete assessment. Patient lives at home with her sister or her mother where she is independent with her care. At discharge patient plans to return home and feels this is a safe discharge. CM discussed availability of home health, rehab services, and medical equipment. Patient states she will have family drive her home. Patient has home o2 concentrator ( unknown provider) Patient states she hasn't used it in over a year. Patient denied known discharge needs at this time. CM will continue to follow and will assist as needed with dc plans/needs. Certified Personal Trainer: Radha Mccauley DCPIA - Discharge Planning Initial Assessment Updated by [email or web address]: Radha Mccauley on 04/01/19 7:46 pm * Is the patient Alert and Oriented? Yes * How many steps to enter\exit or inside your home? - * PCP MARIA ALEJANDRA * Pharmacy [facility] * Preadmission Environment Home with Family * ADLs Independent * Equipment Oxygen * List name and contact numbers for known caregivers / representatives who currently or will assist patient after discharge: BRITTANIE YEE - [facility]- [phone] * Verbal permission to speak to the caregivers and representatives has been obtained from the patient. Yes * Community resources currently utilized None * Additional services required to return to the preadmission environment? No * Can the patient safely return to the preadmission environment? Yes * Has this patient been hospitalized within the prior 30 days at any hospital? No Last DP export: 04/01/19 6:51 p Patient Name: ADONIS YEE Page 53819 at 0919 All edits/amendments must be made on the electronic document DICTATION DATE: 04/04/19918 MANAGER GENERAL: BOUBACAR 04/04/19918 RPT#: [id number] DC DATE: STATUS: ADM IN [facility] [address] [place] [address] END OF REPORT
--- NOTE | 2019-04-04 10:24 | NUR ---
PATIENT TO REFUSE FLU SHOT SHE IS SUPPOSE TO HAVE BRAIN SURGERY THIS WEEK WITH DR JIMENEZ.
--- NOTE | 2019-04-04 11:45 | NUR ---
PATIENT IS STABLE AND VSS. PATIENT DENIES ANY NEEDS OR PAIN. ORDERS RECEIEVED FOR DC. WRITTEN AND VERBAL INSTRUCTIONS GIVEN TO PATIENT AND PATIENT VERBALIZED UNDERSTANDING. PATIENT SIGNED DC INSTRUCTIONS. IV DCD WITH OUT DIFFICULTY WITH ENTIRE CATHETER INTACT. PATIENT TRANSPORTED TO FRONT DOOR VIA WC TO PRIVATE VEHICLE DRIVEN BY PATIENT MOTHER. PATIENT IS DCD TO HOME FOR SELF CARE.
--- NOTE | 2019-04-04 13:51 | MORECARE ---
CASE MANAGEMENT DISCHARGE SUMMARY PATIENT: ADONIS YEE UNIT: [id number] ADM DATE: 03/31/19 AGE: 59 : 60 SEX: F ROOM/BED: D.1212 AUTHOR: JACKY KING PHYSICIAN: REFERRING PHYSICIAN: JAKOB MELENDEZ MD DATE OF SERVICE: 04/04/19 Discharge Plan Patient Name: ADONIS YEE Facility: [facility]:[place] : 1960 Planned Disposition: Home Anticipated Discharge Date: Discharge Date: 04/04/2019 Expected LOS: Initial Reviewer: [email or web address] Initial Review Date: 04/01/2019 Generated: 04/04/19 2:51 pm Comments DCP- Discharge Planning Updated by [email or web address]: Claribel De Santiago on 04/04/19 8:[address] Patient Name: ADONIS YEE Encounter No: [id number] : 1960 Primary Insurance: MEDICAID [place] Anticipated DC Date: Planned Disposition: Home External Planned Provider: : DCP follow-up note: Patient and family in agreement with discharge plan. No changes to plan. Case management will follow and assist as needed. Claribel De Santiago DCP- Discharge Planning Updated by [email or web address]: Radha Mccauley on 04/01/19 6:[address] Patient Name: ADONIS YEE Admission Status: ER Accout number: [id number] Admission Date: 03-31-2019 : 1960 Admission Diagnosis: Attending: JAKOB MELENDEZ Current LOS: 1 Anticipated DC Date: Planned Disposition: Home Primary Insurance: MEDICAID [place] Discharge Planning Comments: CM met with patient to complete initial dc planning assessment. CM educated patient on the CM role and verbal consent given by patient to complete assessment. Patient lives at home with her sister or her mother where she is independent with her care. At discharge patient plans to return home and feels this is a safe discharge. CM discussed availability of home health, rehab services, and medical equipment. Patient states she will have family drive her home. Patient has home o2 concentrator ( unknown provider) Patient states she hasn't used it in over a year. Patient denied known discharge needs at this time. CM will continue to follow and will assist as needed with dc plans/needs. Director Of Program Management: Radha Mccauley DCPIA - Discharge Planning Initial Assessment Updated by [email or web address]: Radha Mccauley on 04/01/19 7:46 pm * Is the patient Alert and Oriented? Yes * How many steps to enter\exit or inside your home? 10- * PCP MARIA ALEJANDRA * Pharmacy [facility] * Preadmission Environment Home with Family * ADLs Independent * Equipment Oxygen * List name and contact numbers for known caregivers / representatives who currently or will assist patient after discharge: BRITTANIE YEE - [facility]- [phone] * Verbal permission to speak to the caregivers and representatives has been obtained from the patient. Yes * Community resources currently utilized None * Additional services required to return to the preadmission environment? No * Can the patient safely return to the preadmission environment? Yes * Has this patient been hospitalized within the prior 30 days at any hospital? No Last DP export: 04/04/19 8:19 a Patient Name: ADONIS YEE Page 81800 at 1351 All edits/amendments must be made on the electronic document DICTATION DATE: 04/04/19 1351 HEAD HOUSEKEEPER: BOUBACAR 04/04/19 1351 RPT#: [id number] DC DATE:04/04/19 STATUS: DIS IN [facility] [address] [place] [address] END OF REPORT
== END 2019-04-04 11:45 | disposition home or self-care (01) | DRG 392 ==
LOC: D.ER 14:11 → D.M3 20:37
PROVIDERS: Emergency Medicine; Family Medicine; ADMIT Family Medicine; ATTEND Family Medicine
DX: K52.9 Noninfective gastroenteritis and colitis, unspecified (principal); N17.9 Acute kidney failure, unspecified; E87.6 Hypokalemia; D32.9 Benign neoplasm of meninges, unspecified; I10 Essential (primary) hypertension; J44.9 Chronic obstructive pulmonary disease, unspecified; I25.10 Atherosclerotic heart disease of native coronary artery without angina pectoris; F41.9 Anxiety disorder, unspecified

== ENCOUNTER 2019-04-19 15:21 | Inpatient (IN) | payer MEDICAID ==
[~2019-04-19] VITALS: Ht 154.9 cm; Wt 95.3 kg
--- NOTE | ~2019-04-19 | OP ---
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 POSTOPERATIVE DIAGNOSIS: Left frontal greater wing sphenoid meningioma. PROCEDURE: Left frontal craniotomy with navigation, intraoperative ultrasound, CUSA aspirator, microscopic illumination for resection of the left greater wing sphenoid meningioma. SURGEON: Antoinette Jimenez MD DESCRIPTION AND TECHNIQUE: After induction of general endotracheal anesthesia, the patient was positioned supine on the operating table and placed in Rivera head pins. Registration took place with [employer] navigation. A scalp flap and skull flap were planned using [employer] navigation. After sterile prep and drape, a curvilinear scalp incision was carried out just behind the hairline and from the left midline to the left superior temporal line to the zygoma. Sundeep clips were applied to the scalp for hemostasis. The scalp flap was reflected anterolaterally along with the temporalis muscle on the single unit until the root of the zygoma was identified. Taylor holes were placed at the perimeter of the skull flap. The skull flap was elevated with Midas Jacobo drill using the side cutting diamond. The dura was opened in a circumferential manner around the tumor. The tumor was localized with navigation prior to opening the dura. There was a 1-cm margin between the dura and the tumor edge. The tumor was dissected away from the arachnoid with microscopic illumination. Multiple specimens of tumor sent to pathology for diagnosis. There was a gross total resection obtained at the conclusion of the tumor resection. Meticulous hemostasis was maintained throughout the wound. Wound was irrigated with copious amounts of lukewarm saline irrigant solution. Dura was replaced with [employer] graft onlay. The skull flap was replaced with titanium plates and screws. The galea was reapproximated with interrupted 2-0 Vicryl suture as well as the temporalis muscle. The skin was closed with felicia. A sterile dressing was applied to the wound. The patient was awakened in good condition and taken to recovery. All counts were reported as correct. ESTIMATED BLOOD LOSS: Minimal. TRANSINT:[id number] Voice Confirmation ID: [id number] DOCUMENT ID: [id number] ANTOINETTE JIMENEZ MD CC: [id number] DICTATION DATE: 06/15/19822 RELIGIOUS EDUCATION COORDINATOR: 06/15/19 1020 DIS IN 04/27/19 [facility] [address] [place] [address]
[~2019-04-19 15:21] MED LIST changes: +FLAGYL500 MG PO; +HYDROCODON-ACE1 EA10 PO; +LEVOFLOXACIN500 MG PO
[2019-04-21] VITALS (11 sets, daily range): BP systolic 118–158; BP diastolic 55–91; BMI 36.1; BMI 40.9
[2019-04-21 09:03] LABS: ANION GAP 12.4 mmol/L (8-16); CARBON DIOXIDE 28.2 mmol/L (21.0-32.0); CREATININE - SERUM 0.9 mg/dL (0.6-1.3); POTASSIUM - SERUM 3.6 mmol/L (3.5-5.1)
[2019-04-21 09:09] LABS: PROTIME 12.7 SECONDS (11.6-15.0)
[2019-04-21 09:19] LABS: BASOPHILS 0.3 % (0-2); EOSINOPHILS 2.7 % (0-7); HEMATOCRIT 44.5 % (36.0-48.0); HEMOGLOBIN 14.4 g/dL (12-16); IMMATURE GRANULOCYTES 0.3 % (0-5); LYMPHOCYTES 26.6 % (15-50); MCH 26.8 pg (26.0-34.0); MCHC 32.4 g/dL (31.0-37.0); MCV 82.7 fL (80.0-100.0); MEAN PLATELET VOLUME 9.5 fL (7.4-10.4); MONOCYTES 9.9 % (2-11); NEUTROPHILS 60.2 % (40-80); RBC 5.38 10x6/uL (4.00-5.40); RDW 14.6 % (11.5-14.5)
[2019-04-21 09:24] LABS: PLATELET COUNT 261 10x3/uL (130-400)
--- NOTE | 2019-04-21 10:26 | NUR ---
UNABLE TO LOCATE COPIES OF POA AND LIVING WILL IN CHART. FAMILY WILL BRING ANOTHER COPY.
--- NOTE | 2019-04-21 18:10 | NUR ---
RECEIVED PT TO 2302 FROM SURGERY. PT ALERT AND ORIENTED TO SELF AND PLACE AND SITUATION. SHE HAS A DRESSING TO THE LEFT SIDE OF HER HEAD. SMALL RIGHT PUNCTURE SITE ABOVE RIGHT EYEBROW. PT HAS AN ART LINE TO HER LEFT WRIST. SHE HAS A CASTILLO CATHETER. 1750ML OUTPUT. PT STATES SHE'S IN PAIN. GAVE 2MG OF MORPHINE AT 1735. WILL GIVE 2 OF NORC0-5. VSS. ON ROOM AIR. WILL CONTINUE TO MONITOR.
--- NOTE | 2019-04-21 19:00 | NUR ---
Recieved patient resting in bed with eyes open and family at bedside, assessment completed per flowsheet. Patient AO x4, answers appropriately/follows instructions with small periods of disorientation to time. R pupil 4mm and brisk/L pupil 4mm with slightly sluggish, round and accomodating. L head incision dressing CDI, no bleeding/draiange. S1/S2 noted NSR on telemetry, rythmic and regular. Breathing is even/unlabored on room air with O2 sat 97%, lung sounds clear throughout. Abdomen is obese/soft with bowel sounds active x4, non-tender. Negron secured, clear yellow urine noted. All pulses palpable with cap refill < 3 sec, skin warm/dry. C/O head aching 10/10, will provide PRN medication when available. L radial A-line with good waveform, zeored with wrist protector in use. Denies further needs at this time, see flowsheet for details. All VSS and will continue to monitor.
--- NOTE | 2019-04-21 21:00 | NUR ---
Patient resting in bed with eyes open, c/o break-through head ache 12/06. no bleeding/drainage noted, eyes PERRLA with sclera white/clear. Full ROM all extremities, valet parker equal bilateral. HS meds given without difficulty, no further needs and will continue to monitor.
--- NOTE | 2019-04-21 23:00 | NUR ---
Reassessment completed per flowsheet, no changes noted from previous assessment. Patient AO x4, answers appropriately/follows instructions. Eyes PERRLA @ 4mm with brisk response, sclera is clear/white. S1/S2 noted NSR on telmetry, rythmic and regular. Breathing is even/unlabored on room air with O2 sat 94%, lung sounds clear throughout. Full ROM all extremities with all pulses palpable, L Radial A-line with good waveform. C/O head aching 8/10, PRN medication provided and will reassess. No further needs at this time, see flowsheet for details. All VSS and will continue to monitor.
[2019-04-22] VITALS (11 sets, daily range): BP systolic 122–163; BP diastolic 54–84
--- NOTE | 2019-04-22 01:00 | NUR ---
Patient awake in bed with eyes open, c/o breakthrough head ache 10. Will provide PRN medication when available, no further needs and will continue to monitor.
--- NOTE | 2019-04-22 02:00 | NUR ---
Patient C/O nausea, emesis bag and PRN Zofran given as ordered.
--- NOTE | 2019-04-22 03:00 | NUR ---
Reassessment completed per flowsheet, no changes noted from previous assessment. L head incision dressing CDI, no bleeding/bruising noted. Eyes PERRLA @ 4mm with brisk response, sclera clear/white. S1/S2 noted NSR on telemetry, rythmic and regular. Breathing is even/unlabored on room air with O2 sat 94%, lung sounds clear throughout. Full ROM all extremities with all pulses palpable, skin warm/dry with cap refill < 3 sec. C/O head aching 7/10, will provide PRN medication when available. Denies further needs at this time, see flowsheet for details. All VSS and will continue to monitor.
--- NOTE | 2019-04-22 05:00 | NUR ---
Patient sitting up in bed with eyes open, c/o head aching 01/05. Eyes PERRLA with sclera clear/white, full ROM all extremities with soft sugar operator head equal/bilateral. Denies further needs at this time, all VSS and will continue to monitor.
--- NOTE | 2019-04-22 08:47 | NUR ---
0700 PT RECIEVED ALERT AND ORIENTED R SUBCLAVIAN CVL DRESSING CDI WITH NS 50ML/HR, L ART WITH WRIST PROTECTOR IN PLACE, GOOD WAVEFORM, ZEROED, CASTILLO DRAINING YELLOW URINE, DRESSING TO L HEAD CDI, NO NEURO DEFICITS OR WEAKNESS NOTED 0830 BREAKFAST TRAY SERVED, DENIES ALL NEEDS, DAUGHTER BILLY CALLED FOR UPDATE, CONFIRMED WITH PT OK TO GIVE INFO TO THERE IS NO SECURITY CODE.
--- NOTE | 2019-04-22 10:08 | NUR ---
0930 A LINE DCD PER PROTOCOL TIP INTACT
--- NOTE | 2019-04-22 10:13 | NUR ---
CALLED REPORT TO ANNALISE, PT TO TRANSFER TO 221, ATTEMPTED TO NOTIFY BILLY
--- NOTE | 2019-04-22 10:31 | NUR ---
PATIENT ADMITTED TO ROOM 2216. RIGHT SUBCLAVIAN CENTRAL LINE PATENT. ALERT AND ORIENTED. LUNGS CLEAR BILATERALLY. HEART SOUNDS S1 AND S2 HEARD IN ALL LOZANO. BOWEL SOUNDS ACTIVE X 4. DRSG TO LEFT HEAD C/D/I. REQUESTED AND GIVEN SODA. DENIES FURTHER NEEDS. BED LOW. FALL PRECAUTIONS IN PLACE. CALL PHELAN AND PERSONAL ITEMS IN REACH. WILL CONTINUE TO MONITOR.
--- NOTE | 2019-04-22 13:11 | NUR ---
RESTING IN BED. DENIES NEEDS. WILL CONTINUE TO MONITOR.
--- NOTE | 2019-04-22 14:12 | NUR ---
REQUESTED SCDS AND SOCKS OFF.
--- NOTE | 2019-04-22 16:37 | NUR ---
RESTING IN BED. DENIES NEEDS. WILL CONTINUE TO MONITOR.
--- NOTE | 2019-04-22 18:34 | NUR ---
PATIENT SLEEPING. BED LOW. FALL PRECAUTIONS IN PLACE. CALL PHELAN AND PERSONAL ITEMS IN REACH.
--- NOTE | 2019-04-22 19:15 | NUR ---
PATIENT ALERT WHEN ENTERING THE ROOM. RESPONDS TO NAME BEING CALLED. STATES "I AM OKAY RIGHT NOW." PATIENT APPEARS SLEEPY. CALLED PATIENT NAME AGAIN AND REORIENTED PATIENT. PATIENT ABLE TO STATE NAME AND DATE OF . PATIENT STATES IT IS THURSDAY, REORIENTED TO THURSDAY. UNABLE TO STATE MONTH. PATIENT MUMBLES THAT THE SURGERY WAS FOR "HEADACHES" AND WHEN ASKED WHAT DOCTOR PERFORMED SURGERY PATIENT STATED "SOMETHING WITH A P". PATIENT DENIES DISCOMFORT AT THIS TIME. HAS DRESSING TO THE LEFT FOREHEAD THAT HAS SCANT AMOUNT OF DARK DRAINAGE THAT APPEARS OLD AND HAS DRIED. RIGHT SUBCLAVIAN CENTRAL LINE THAT IS INFUSING NS @ 50. UNLABORED RESPIRATIONS. S1 AND S2 NOTED IN HEART SOUNDS. PATIENT IS RIGHT ARM RESERVE. HAS CASTILLO WITH CLEAR YELLOW URINE DRAINING AT THIS TIME. SCD'S CURRENTLY OFF. DENIES FURTHER NEEDS. CALL LIGHT IN REACH. BELEM ALARM ON. BED LOCKED AND LOWERED. CPOC.
--- NOTE | 2019-04-22 20:26 | NUR ---
WENT TO REASSESS PATIENT AGAIN. PATIENT WAKES UP BREIFLY STATES NAME BEFORE FALLING BACK TO SLEEP. CALLED CHARGE NURSE INTO ROOM. ASSESSED PATIENT WITH CHARGE NURSE AGAIN. CHARGE NURSE RECCOMENDS TO HOLD ALTERING MEDICATIONS AT THIS TIME. REVIEWED EMAR AND PATIENT HAD NORCO, PHENERGAN, AND MORPHINE WITHIN 1.5 HOURS AND APPEARS TO BE SEDATED FROM THOSE MEDS. HOLDING ALL MEDICATIONS AT THIS TIME. OTHERWISE VITAL SIGNS ARE STABLE. CALL LIGHT WITHIN REACH. CPOC.
--- NOTE | 2019-04-22 22:01 | NUR ---
PATIENT MUCH MORE ALERT WHEN ENTERING THE ROOM. STATES "I HAVEN'T SLEPT MUCH THE LAST FEW DAYS." THEN PROCEEDS TO SAY "I WENT TO [facility] [employer] [facility] FOR THE CRIMINALLY INSANE AND I JUST GET WORN OUT REALLY EASILY." REORIENTED PATIENT TO SETTING AND PATIENT SAYS "I KNOW IM IN THE HOSPITAL. I WAS TRYING TO SAY I AM JUST WORN OUT." PATIENT CALM BUT STATES SHE IS VERY TIRED AND WISHES TO GO BACK TO BED. VITAL SIGNS REMAIN STABLE AT THIS TIME.
[2019-04-23] VITALS: BP 152/78
--- NOTE | 2019-04-23 00:06 | NUR ---
ASSESSING MIDNIGHT VITAL SIGNS AND PATIENT MUCH MORE AROUSED AND TALKING IN COMPLETE SENTENCES. PATIENT ORIENTED TO DATE, TIME, SELF, SITUATION, DR. NAME, ETC. PATIENT IRRITABLE AT FIRST WHEN TRYING TO EXPLAIN WHY SHE DID NOT RECEIVED NIGHT TIME MEDS. THEN PATIENT UNDERSTOOD WHY MEDS WERE HELD DUE TO SEDATION. PATIENT STATED "I WAS JUST SO TIRED. I DON'T KNOW IF IT HIT ME ALL AT ONCE. I USUALLY TAKE ALL THOSE MEDICINES AT HOME." PROVIDED EDUCATION TO PATIENT ABOUT PO STRESS AND HEALING. PATIENT STATES UNDERSTANDING. DISCUSSED WITH CHARGE NURSE ABOUT PATIENT ORIENTATION AND CHARGE NURSE AGREES PATIENT OKAY TO HAVE NORCO 10 PER ORDER. ADMINISTERED TO PATIENT WITH NO ISSUES. VSS. DENIES FURTHER NEEDS. CALL LIGHT REMAINS IN REACH. CPOC.
--- NOTE | 2019-04-23 02:35 | NUR ---
PT AWAKE. STATES SHE IS STILL IN PAIN. PATIENT REMAINS ALERT AND ORIENTED. ADMINISTERED MORPHINE IV SLOW WITH DILUTION. STAYED IN ROOM WITH PATIENT FOR SEVERAL MINUTES TO SEE HOW PATIENT TOLERATED MEDICATION. PATIENT APPEARS TO HAVE TOELRATED WELL. REMAINS ALERT AND ORIENTED AND REPORTS SUBSIDE IN PAIN. ANSWERED QUESTIONS ABOUT WHATS TO COME AND PROVIDED EDUCATION TO PATIENT. NO OVER SEDATION NOTICED AT THIS TIME. PATIENT REMAINS AWAKE WHEN EXITING THE ROOM. WILL CONTINUE TO MONITOR.
--- NOTE | 2019-04-23 02:46 | NUR ---
PATIENT STATES THAT SHE THINKS SHE MAY HAVE "CRAZY" REACTIONS TO PHENERGAN. RECALLS TIMES BEFORE WHERE PHENERGAN HAS MADE HER "DO CRAZY THINGS AND TALK OUT OF MY HEAD." REQUESTED ZOFRAN. ADMINSTERED PER ORDER. REMAINED IN ROOM WITH PATIENT FOR SEVERAL MINUTES TO ASSESS TOLERATION OF MEDICATION. PATIENT APPEARS TO BE TOLERATING WELL. CALL LIGHT IN REACH. CPOC.
--- NOTE | 2019-04-23 03:01 | NUR ---
REMAINED IN ROOM WITH PATIENT AND HAD SEVERAL CONVERSATIONS. PATIENT REMAINS ALERT AND ORIENTED AND TOLERATED PAIN MEDICINE AND ZOFRAN WELL.
[2019-04-23 04:00] VITALS: BP 137/71
--- NOTE | 2019-04-23 07:52 | NUR ---
AWAKE AND ALERT. ORIENTED X3. NEURO CHECKS WNL. LUNGS ARE CLEAR BILATERALLY, NO COUGH NOTED. SKIN IS INTACT WITHOUT REDNESS EXCEPT INCISION TO LEFT FOREHEAD, WHICH HAS A DRY INTACT DRESSING IN PLACE. RIGHT CVL IS PATENT WITHOUT REDNESS AT INSERTION SITE. CASTILLO PATENT WITH CLEAR YELLOW URINE. DENIES NEEDS. SCD'S IN PLACE.
[2019-04-23 07:59] VITALS: BP 133/70
--- NOTE | 2019-04-23 09:00 | NUR ---
ATE ALMOST ALL OF BREAKFAST. REQUESTED AND GIVEN 2MG MORPHINE SLOW IVP FOR C/O HEADACHE LEVEL 8. WILL MONITOR.
[2019-04-23 12:42] VITALS: BP 102/61
--- NOTE | 2019-04-23 14:05 | NUR ---
REQUESTED AND GIVEN 2MG MORPHINE SLOW IVP FOR C/O HEADACHE LEVEL 8. WILL MONITOR.
[2019-04-23 17:32] VITALS: BP 142/85
--- NOTE | 2019-04-23 19:10 | NUR ---
PT ALERT AND ORIENTED WHEN ENTERING THE ROOM. UPSET AND ASKING THIS NURSE TO PLEASE CALL DOCTOR PACE FOR MORE PAIN MEDICINE. LOOKED AT EMAR AND INSTRUCTE DPATIENT THAT DOSE OF MEDICATION IS AVAIALBLE. PATIENT REQUESTED PAIN MEDICINE. RETREIEVED AND ADMINSTERED PER ORDER. PATIENT TOLERATED WELL. DENIES FURTHER NEEDS AT THIS TIME. CALL LIGHT IN REACH. CPOC.
--- NOTE | 2019-04-23 19:30 | NUR ---
PATIENT TOLERATED MEDICATIONS WELL. PATIENT HAS INCISION AND [place] TO THE LEFT SIDE OF FOREHEAD CLEAN AND WELL APPROXIMATED WITH NO SIGNS OF INFECTION AT THIS TIME. PATIENT HAS RIGHT SUBCLAVIAN CENTRAL LINE THAT IS CLEAN AND DRY WITH PATENTCY AND FLUSHES WITH EASE. CURRENTLY INFUSING NS @ 50ML/HR. WEARING SCD'S AT THIS TIME. CALL LIGHT IN REACH. CPOC.
[2019-04-23 20:00] VITALS: BP 167/90
--- NOTE | 2019-04-23 20:10 | NUR ---
ADMINISTERED HS MEDICATIONS. TOLERATED WELL.
--- NOTE | 2019-04-23 20:20 | NUR ---
BED AND LINEN CHANGED PROVIDED. CLEANED AND DISINFECTED ROOM WITH ANTIMIRCORBIAL WIPES. TRASH CHANGED.
--- NOTE | 2019-04-23 21:30 | NUR ---
PROVIDED PO PAIN MEDICINE PER REQUEST. WELL FREDY ROSARIO AND RICARDO Mota. DENIES FURTHER NEEDS AT THIS TIME. TOLERATED MEDICATIONS WELL. CALL LIGHT IN REACH.
[2019-04-24] VITALS: BP 102/55
[2019-04-24 04:00] VITALS: BP 135/82
--- NOTE | 2019-04-24 06:18 | NUR ---
I have reviewed this patient and I concur with the Shift Assessment completed by the Licensed Practical Nurse today this shift.
--- NOTE | 2019-04-24 07:45 | NUR ---
AWAKE AND ALERT. ORIENTED X3. NO C/O AT THIS TIME. LUNGS ARE CLEAR BILATERALLY, NO COUGH NOTED. SKIN IS INTACT WTIHOUT REDNESS EXCEPT INCISION TO LEFT FOREHEAD AREA, WHICH IS CLEAN DRY AND WELL APPROXIMATED WITH CLIPS INTACT. CASTILLO PATENT WITH CLEAR YELLOW URINE. RIGHT SUBCLAVIAN PATENT WTIHOUT REDNESS AT INSERTION SITE. DENIES NEEDS.
--- NOTE | 2019-04-24 09:38 | NUR ---
REQUESTED AND GIVEN 2MG MORPHINE SLOW IVP FOR C/O HEADACHE LEVEL 8. WILL MONITOR.
--- NOTE | 2019-04-24 10:30 | NUR ---
ASSISTED WITH BED BATH PER STAFF. LINENS CHANGED.
[2019-04-24 13:10] VITALS: BP 111/56
[2019-04-24 16:58] VITALS: BP 97/55
--- NOTE | 2019-04-24 17:00 | NUR ---
CASTILLO D/C WITH TIP INTACT WITHOUT DIFFICULTY.
--- NOTE | 2019-04-24 18:32 | NUR ---
AMBULATED OVER 250 FEET WITH SBA. NO DIZZINESS WITH ACTIVITY NO NEURO DEFICITS NOTED WITH ACTIVITY. ATE ABOUT HALF OF SUPPER. DENIES NEEDS. NO CHANGES NOTED.
--- NOTE | 2019-04-24 20:45 | NUR ---
UP AMBUALTING AROUND UNIT. RESP EVEN AND UNALBORED. NO DISTRESS NOTED. CLIPS INTACT TO LEFT SIDE OF HEAD WITHOUT REDNESS OR EDEMA NOTED. NO DRAINAGE NOTED. RIJ INTACT WITHOUT REDNESS OR EDEMA NOTED. NO COMPLAINTS VOICED.
[2019-04-24 21:25] VITALS: BP 172/88
[2019-04-25 00:17] VITALS: BP 113/66
--- NOTE | 2019-04-25 03:26 | NUR ---
I have reviewed this patient and I concur with the Shift Assessment completed by the Licensed Practical Nurse today this shift.
[2019-04-25 04:47] VITALS: BP 153/78
[2019-04-25 07:56] VITALS: BP 113/83
--- NOTE | 2019-04-25 08:15 | NUR ---
PATIENT IN BED WITH IV INTACT. NO COMPLAINTS OR SIGNS OF DISTRESS. CALL LIGHT WITHIN REACH.
--- NOTE | 2019-04-25 09:58 | MORECARE ---
CASE MANAGEMENT DISCHARGE SUMMARY PATIENT: ADONIS YEE UNIT: [id number] ADM DATE: 04/21/19 AGE: 59 : 60 SEX: F ROOM/BED: D.2216 AUTHOR: JACKY KING PHYSICIAN: REFERRING PHYSICIAN: ANTOINETTE JIMENEZ MD DATE OF SERVICE: 04/25/19 Discharge Plan Patient Name: ADONIS YEE Facility: [facility]:[place] : 1960 Planned Disposition: Home or Self Care Anticipated Discharge Date: Discharge Date: Expected LOS: Initial Reviewer: [email or web address] Initial Review Date: 04/21/2019 Generated: 04/25/19 10:58 am Patient Name: ADONIS YEE Page [phone] at 0958 All edits/amendments must be made on the electronic document DICTATION DATE: 04/25/19957 SALES INTERN: BOUBACAR 04/25/19957 RPT#: [id number] DC DATE: STATUS: ADM IN [facility] [address] [place] [address] END OF REPORT
--- NOTE | 2019-04-25 10:07 | MORECARE ---
CASE MANAGEMENT DISCHARGE SUMMARY PATIENT: ADONIS YEE UNIT: [id number] ADM DATE: 04/21/19 AGE: 59 : 60 SEX: F ROOM/BED: D.2216 AUTHOR: JACKY KING PHYSICIAN: REFERRING PHYSICIAN: ANTOINETTE JIMENEZ MD DATE OF SERVICE: 04/25/19 Discharge Plan Patient Name: ADONIS YEE Facility: 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 CM educated patient on the CM role and verbal consent given by patient to complete assessment. Patient is currently living between her sister and her mom where she is independent with her care. At discharge patient would like to go to [facility] before going to her mothers home. ( mom's address is [address]) and feels this is a safe discharge. CM discussed availability of home health, rehab services, and medical equipment. I explained to her about [facility] and the rehab benefits and will have to see if they do a restorative program. LAURITA signed for [facility]. There are 20 steps to her mom's condo. Patient denied known discharge needs at this time. CM will continue to follow and will assist as needed with dc plans/needs. Financial Secretary: Susie Massey DCPIA - Discharge Planning Initial Assessment Updated by [email or web address]: Susie Massey on 04/25/19 9:59 am * Is the patient Alert and Oriented? Yes * How many steps to enter\exit or inside your home? 20 * PCP [facility] * Pharmacy REHAB * Preadmission Environment Home with Family * ADLs Independent * Equipment None * List name and contact numbers for known caregivers / representatives who currently or will assist patient after discharge: BRITTANIE YEE SISTER [phone] * Verbal permission to speak to the caregivers and representatives has been obtained from the patient. N/A * Community resources currently utilized None * Additional services required to return to the preadmission environment? Yes * Can the patient safely return to the preadmission environment? Yes * Has this patient been hospitalized within the prior 30 days at any hospital? No Coverage Notice Reviewer: [id number] Chandu Massey Notice Issued Date-Time: 04/25/2019 8:50 Notice Type: Patient Choice Letter Notice Delivered To: Patient Relationship to Patient: Recreation Counselor Name: Delivery Method: HAND - Hand Delivered Adilia Days: Prior Verbal Notification: Recipient Understood Notice: Yes Recipient Signature: Yes Med Rec Note Co-signed by Attending: Coverage Notice Comment: Last DP export: 04/25/19 8:58 Patient Name: ADONIS YEE Page [phone] at 1007 All edits/amendments must be made on the electronic document DICTATION DATE: 04/25/19 100 ASSISTANT STORE MANAGER SALES: BOUBACAR 04/25/19 100 RPT#: [id number] DC DATE: STATUS: ADM IN [facility] [address] [place] [address] END OF REPORT
--- NOTE | 2019-04-25 11:00 | NUR ---
PATIENT SITTING UP ON THE SIDE OF THE BED WITH NO COMPLAINTS OR SIGNS OF DISTTRESS. IV INTACT. CALL LIGHT WITHIN REACH.
[2019-04-25 14:15] VITALS: Ht 154.9 cm; Wt 95.3 kg
--- NOTE | 2019-04-25 14:30 | NUR ---
PATIENT SITTING UP ON THE SIDE OF THE BED WITH IV INTACT. NO COMPLAINTS OR SIGNS OF DISTRESS. CALL LIGHT WITHIN REACH.
--- NOTE | 2019-04-25 15:04 | MORECARE ---
CASE MANAGEMENT DISCHARGE SUMMARY PATIENT: ADONIS YEE UNIT: [id number] ADM DATE: 04/21/19 AGE: 59 : 60 SEX: F ROOM/BED: D.2216 AUTHOR: JACKY KING PHYSICIAN: REFERRING PHYSICIAN: ANTOINETTE JIMENEZ MD DATE OF SERVICE: 04/25/19 Discharge Plan Patient Name: ADONIS YEE Facility: [facility]:[place] : 1960 Planned Disposition: Home or Self Care Anticipated Discharge Date: Discharge Date: Expected LOS: Initial Reviewer: [email or web address] Initial Review Date: 04/21/2019 Generated: 04/25/19 4:04 pm Comments DCP- Discharge Planning Updated by [email or web address]: Susie Massey on 04/25/19 9:[address] Patient Name: ADONIS YEE Admission Status: Elective Accout number: [id number] Admission Date: 04-21-2019 : 1960 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 CM educated patient on the CM role and verbal consent given by patient to complete assessment. Patient is currently living between her sister and her mom where she is independent with her care. At discharge patient would like to go to [facility] before going to her mothers home. ( mom's address is [address]) and feels this is a safe discharge. CM discussed availability of home health, rehab services, and medical equipment. I explained to her about [facility] and the rehab benefits and will have to see if they do a restorative program. LAURITA signed for [facility]. There are 20 steps to her mom's condo. Patient denied known discharge needs at this time. CM will continue to follow and will assist as needed with dc plans/needs. Transmission Mechanic: Susie Massey DCPIA - Discharge Planning Initial Assessment Updated by [id number]: Susie Massey on 04/25/19 9:59 am * Is the patient Alert and Oriented? Yes * How many steps to enter\exit or inside your home? 20 * PCP [facility] * Pharmacy REHAB * Preadmission Environment Home with Family * ADLs Independent * Equipment None * List name and contact numbers for known caregivers / representatives who currently or will assist patient after discharge: BRITTANIE YEE SISTER [phone] * Verbal permission to speak to the caregivers and representatives has been obtained from the patient. N/A * Community resources currently utilized None * Additional services required to return to the preadmission environment? Yes * Can the patient safely return to the preadmission environment? Yes * Has this patient been hospitalized within the prior 30 days at any hospital? No External Providers [facility] Next Contact Date: Service Request Date: Service Type: Resolution: Reviewer: Comments: Coverage Notice Reviewer: [email or web address] Chandu Massey Notice Issued Date-Time: 04/25/2019 8:50 Notice Type: Patient Choice Letter Notice Delivered To: Patient Relationship to Patient: Machine Shop Apprentice Name: Delivery Method: HAND - Hand Delivered Adilia Days: Prior Verbal Notification: Recipient Understood Notice: Yes Recipient Signature: Yes Med Rec Note Co-signed by Attending: Coverage Notice Comment: Last DP export: 04/25/19 9:07 Patient Name: ADONIS YEE Page [phone] at 1504 All edits/amendments must be made on the electronic document DICTATION DATE: 04/25/19 150 VACUUM CLOSING MACHINE OPERATOR: BOUBACAR 04/25/19 150 RPT#: [id number] DC DATE: STATUS: ADM IN [facility] [address] [place] [address] END OF REPORT
[2019-04-25 16:38] VITALS: BP 169/86
--- NOTE | 2019-04-25 18:26 | NUR ---
PATIENT IN BED WITH NO COMPLAINTS OR SIGNS OF DISTRESS. CVL INTACT. CALL LIGHT WITHIN REACH.
--- NOTE | 2019-04-25 18:30 | NUR ---
PATIENT SITTING UP ON SIDE OF THE BED WITH NO COMPLAINTS AT THIS TIME. CALL LIGHT WITHIN REACH.
[2019-04-25 22:13] VITALS: BP 156/87
--- NOTE | 2019-04-26 00:46 | NUR ---
PT RESTING IN BED. EYES CLOSED. NO SIGNS OF DISTRESS. BREATHING EVEN AND UNLABORED. IV SITE RT SUBCLAVIAN DRESSING CLEAN DRY AND INTACT. NO SIGNS OF INFECTION. LT SIDE HEAD [place] PRESENT. CLEAN DRY AND INTACT. NO REDDNESS OF SIGNS OF INFECTION. PT STATES NO PROBLEMS AT THIS TIME. LUNG SOUNDS CLEAR. BOWEL SOUNDS ACTIVE. NO LOWER LEG SWELLING PRESENT. SKIN CLEAN DRY AND INTACT. WILL CONTINUE PLAN OF CARE. CALL LIGHT IN REACH. BED LOWERED AND LOCKED. BED RAILS UPX2.
[2019-04-26 01:21] VITALS: BP 165/83
[2019-04-26 05:34] VITALS: BP 152/73
--- NOTE | 2019-04-26 07:51 | NUR ---
PT IS RESTING IN BED WITH EYES CLOSED. RESPIRATIONS ARE EVEN AND UNLABORED. PT IS EASILY AROUSED WITH VERBAL STIMULATION. PT IS AAO X 4 UPON AROUSAL. [place] NOTED TO LEFT TEMPORAL/HEAD. PT REPORTS HEADACHE. WILL ADDRESS SEE EMAR. PT DENIES PRESENCE OF NUMBNESS/TINGLING/N/V AT THIS TIME. PERRLA. BED IS IN THE LOWEST POSITION. CALL LIGHT AND BEDSIDE TABLE ARE WITHIN REACH. SIDE RAILS X 2. PT DENIES FURTHER NEEDS. WILL CONT TO MONITOR.
[2019-04-26 08:42] VITALS: BP 205/108
--- NOTE | 2019-04-26 09:14 | NUR ---
PT WITH HYPERTENSIVE EPISODE. MANUAL BP 218/98. PT IS AAO X 4 AND REPORTS PAIN. HTN AND PAIN ADDRESSED. SEE EMAR. DR JIMENEZ NOTIFIED OF PT HTN AAND TELEPHONE ORDERS RECD ARE ONE TIME DOSE OF 40MG LASIX IV NOW AND CONSULT DR ERAZO FOR BP MANAGEMENT PRIOR TO DISCHARGE. WILL PLACE ORDERS.
[2019-04-26 12:25] VITALS: BP 158/77
--- NOTE | 2019-04-26 15:08 | NUR ---
OT NOTE: PT DOING VERY WELL TODAY. REPORTED THAT SHE HAD A SPIKE IN BP EARLIER, BUT IS FEELING MUCH BETTER NOW. CONT TO AMB IN ROOM AND TO BATHROOM NEEDED. TOILETING, GROOMING, FEEDING, AND DRESSING WITH SPV/MOD I. REMAINS WEAK AND WOULD LIKE FOR PT TO RECEIVE HH SERVICES UPON DC. CHARITO STARKEY, OTR/L
--- NOTE | 2019-04-26 16:27 | MORECARE ---
CASE MANAGEMENT DISCHARGE SUMMARY PATIENT: ADONIS YEE UNIT: [id number] ADM DATE: 04/21/19 AGE: 59 : 60 SEX: F ROOM/BED: D.2216 AUTHOR: JACKY KIGN PHYSICIAN: REFERRING PHYSICIAN: ANTOINETTE JIMENEZ MD DATE OF SERVICE: 04/26/19 Discharge Plan Patient Name: ADONIS YEE Facility: [facility]:[place] : 1960 Planned Disposition: Home or Self Care Anticipated Discharge Date: Discharge Date: Expected LOS: Initial Reviewer: [email or web address] Initial Review Date: 04/21/2019 Generated: 04/26/19 5:26 pm Comments DCP- Discharge Planning Updated by [email or web address]: Susie Massey on 04/26/19 3:[address] SPOKE WITH PATIENT ABOUT REHAB & LET HER KNOW THAT SHE IS TOO HIGH FUNCTION FOR INPATIENT REHAB. SHE STATED THAT SHE FEELS OK TO DISHCARGE HOME WITH HOME HEALTH. LAURITA WITH [facility]. 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 CM educated patient on the CM role and verbal consent given by patient to complete assessment. Patient is currently living between her sister and her mom where she is independent with her care. At discharge patient would like to go to [facility] before going to her mothers home. ( mom's address is [address]) and feels this is a safe discharge. CM discussed availability of home health, rehab services, and medical equipment. I explained to her about [facility] and the rehab benefits and will have to see if they do a restorative program. LAURITA signed for [facility]. There are 20 steps to her mom's condo. Patient denied known discharge needs at this time. CM will continue to follow and will assist as needed with dc plans/needs. Refrigeration Person: Susie Massey DCPIA - Discharge Planning Initial Assessment Updated by [id number]: Susie Massey on 04/25/19 9:59 am * Is the patient Alert and Oriented? Yes * How many steps to enter\exit or inside your home? 20 * PCP [facility] * Pharmacy REHAB * Preadmission Environment Home with Family * ADLs Independent * Equipment None * List name and contact numbers for known caregivers / representatives who currently or will assist patient after discharge: BRITTANIE YEE SISTER [phone] * Verbal permission to speak to the caregivers and representatives has been obtained from the patient. N/A * Community resources currently utilized None * Additional services required to return to the preadmission environment? Yes * Can the patient safely return to the preadmission environment? Yes * Has this patient been hospitalized within the prior 30 days at any hospital? No External Providers External Provider: [facility] Next Contact Date: Service Request Date: Service Type: Resolution: Reviewer: Comments: Coverage Notice Reviewer: [email or web address] Chandu Massey Notice Issued Date-Time: 04/25/2019 8:50 Notice Type: Patient Choice Letter Notice Delivered To: Patient Relationship to Patient: News Specialist Name: Delivery Method: HAND - Hand Delivered Adilia Days: Prior Verbal Notification: Recipient Understood Notice: Yes Recipient Signature: Yes Med Rec Note Co-signed by Attending: Coverage Notice Comment: Reviewer: [email or web address] Chandu Massey Notice Issued Date-Time: 04/26/2019 16:20 Notice Type: Patient Choice Letter Notice Delivered To: Patient Relationship to Patient: News Specialist Name: Delivery Method: HAND - Hand Delivered Adilia Days: Prior Verbal Notification: Recipient Understood Notice: Yes Recipient Signature: Yes Med Rec Note Co-signed by Attending: Coverage Notice Comment: LAURITA FOR [facility] Last DP export: 04/25/19 2:04 Patient Name: ADONIS YEE Page [phone] at 1627 All edits/amendments must be made on the electronic document DICTATION DATE: 04/26/191625 BANQUET MANAGER: BOUBACAR 04/26/191625 RPT#: [id number] DC DATE: STATUS: ADM IN [facility] [address] [facility] [place] [address] END OF REPORT
[2019-04-26 16:43] LABS: BASOPHILS 0.1 % (0-2); EOSINOPHILS 0.5 % (0-7); HEMATOCRIT 42.2 % (36.0-48.0); HEMOGLOBIN 13.6 g/dL (12-16); IMMATURE GRANULOCYTES 1.4 % (0-5); LYMPHOCYTES 16.6 % (15-50); MCH 27.1 pg (26.0-34.0); MCHC 32.2 g/dL (31.0-37.0); MCV 84.1 fL (80.0-100.0); MEAN PLATELET VOLUME 9.2 fL (7.4-10.4); MONOCYTES 9.2 % (2-11); NEUTROPHILS 72.2 % (40-80); RBC 5.02 10x6/uL (4.00-5.40); RDW 14.4 % (11.5-14.5); WBC 13.5 10x3/uL (4.8-10.8)
[2019-04-26 16:45] LABS: PLATELET COUNT 338 10x3/uL (130-400)
[2019-04-26 16:54] LABS: ALBUMIN 3.6 g/dL (3.4-5.0); ANION GAP 10.3 mmol/L (8-16); BILIRUBIN - TOTAL 0.32 mg/dL (0.2-1.3); CARBON DIOXIDE 31.6 mmol/L (21.0-32.0); POTASSIUM - SERUM 3.9 mmol/L (3.5-5.1); PROTEIN - SERUM 6.9 g/dL (6.4-8.2)
[2019-04-26 16:58] VITALS: BP 164/94
--- NOTE | 2019-04-26 17:04 | NUR ---
OT NOTE: PT COMPLETED UNSUPPORTED SITTING IN BED WITH SPV. PT COMPLETED SITTING BALANCE WITH UE GM AXS. THANK YOU, HEATHER YUSUF
--- NOTE | 2019-04-26 21:00 | NUR ---
A&O X 4. AMBULATES INDEPENDENTLY. REPORTS MILD PAIN IN HEAD. C[place] C/D/I AND WELL APPROXIMATED. DENIES FURTHER NEEDS AT THIS TIME, WILL CONTINUE TO MONITOR.
[2019-04-26 21:26] VITALS: BP 155/92
[2019-04-27 02:26] VITALS: BP 180/85
--- NOTE | 2019-04-27 04:03 | NUR ---
I have reviewed this patient and I concur with the Shift Assessment completed by the Licensed Practical Nurse today this shift.
[2019-04-27 05:51] VITALS: BP 166/85
[2019-04-27 06:48] LABS: BASOPHILS 0.2 % (0-2); HEMATOCRIT 42.6 % (36.0-48.0); HEMOGLOBIN 13.5 g/dL (12-16); LYMPHOCYTES 25.4 % (15-50); MCH 26.5 pg (26.0-34.0); MCHC 31.7 g/dL (31.0-37.0); MCV 83.7 fL (80.0-100.0); MEAN PLATELET VOLUME 9.2 fL (7.4-10.4); MONOCYTES 11.2 % (2-11); NEUTROPHILS 60.2 % (40-80); PLATELET COUNT 331 10x3/uL (130-400); RBC 5.09 10x6/uL (4.00-5.40); RDW 14.5 % (11.5-14.5); WBC 11.8 10x3/uL (4.8-10.8)
[2019-04-27 07:40] LABS: ALBUMIN 3.4 g/dL (3.4-5.0); ALKALINE PHOSPHATASE 116 U/L (46-116); ALT (SGPT) 63 U/L (10-68); CALC OSMOLALITY 281 mosm/kg (275-300); CALCIUM 8.8 mg/dL (8.5-10.1); CARBON DIOXIDE 33.3 mmol/L (21.0-32.0); CHLORIDE - SERUM 103 mmol/L (98-107); GLUCOSE 79 mg/dL (74-106); POTASSIUM - SERUM 4.2 mmol/L (3.5-5.1); PROTEIN - SERUM 6.6 g/dL (6.4-8.2); SODIUM 142 mmol/L (136-145); UREA NITROGEN 13 mg/dL (7-18)
[2019-04-27 07:49] LABS: CREATININE - SERUM 0.7 mg/dL (0.6-1.3); eGFR NON AFRICAN AMERICAN > 90 mL/min (90-120)
[2019-04-27 08:24] VITALS: BP 144/86
[2019-04-27 12:21] VITALS: BP 158/92
--- NOTE | 2019-04-27 12:57 | MORECARE ---
CASE MANAGEMENT DISCHARGE SUMMARY PATIENT: ADONIS YEE UNIT: [id number] ADM DATE: 04/21/19 AGE: 59 : 60 SEX: F ROOM/BED: D.2216 AUTHOR: JACKY KING PHYSICIAN: REFERRING PHYSICIAN: ANTOINETTE JIMENEZ MD DATE OF SERVICE: 04/27/19 Discharge Plan Patient Name: ADONIS YEE Facility: [facility]:[place] : 1960 Planned Disposition: Home or Self Care Anticipated Discharge Date: Discharge Date: Expected LOS: Initial Reviewer: [email or web address] Initial Review Date: 04/21/2019 Generated: 04/27/19 1:56 pm Comments DCP- Discharge Planning Updated by [email or web address]: Susie Massey on 04/27/19 11:[address] KARELY WITH [facility] CALLED BACK THIS MORNING AND STATED THAT AT THIS TIME THEY ARE NOT TAKING RUMA. SPOKE WITH PATIENT AND SHE WOULD LIKE TO TRY CARE IV, DR JIMENEZ WANTS HER TO HAVE OT AND SPEECH DCP- Discharge Planning Updated by [email or web address]: Susie Massey on 04/26/19 3:[address] SPOKE WITH PATIENT ABOUT REHAB & LET HER KNOW THAT SHE IS TOO HIGH FUNCTION FOR INPATIENT REHAB. SHE STATED THAT SHE FEELS OK TO DISHCARGE HOME WITH HOME HEALTH. [facility] WITH [facility]. 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 CM educated patient on the CM role and verbal consent given by patient to complete assessment. Patient is currently living between her sister and her mom where she is independent with her care. At discharge patient would like to go to [facility] before going to her mothers home. ( mom's address is [address]) and feels this is a safe discharge. CM discussed availability of home health, rehab services, and medical equipment. I explained to her about RUMA and the rehab benefits and will have to see if they do a restorative program. LAURITA signed for [facility]. There are 20 steps to her mom's condo. Patient denied known discharge needs at this time. CM will continue to follow and will assist as needed with dc plans/needs. Alarm Adjuster: Susie Massey DCPIA - Discharge Planning Initial Assessment Updated by [email or web address]: Susie Massey on 04/25/19 9:59 am * Is the patient Alert and Oriented? Yes * How many steps to enter\exit or inside your home? 20 * PCP [facility] * Pharmacy REHAB * Preadmission Environment Home with Family * ADLs Independent * Equipment None * List name and contact numbers for known caregivers / representatives who currently or will assist patient after discharge: BRITTANIE YEE SISTER [phone] * Verbal permission to speak to the caregivers and representatives has been obtained from the patient. N/A * Community resources currently utilized None * Additional services required to return to the preadmission environment? Yes * Can the patient safely return to the preadmission environment? Yes * Has this patient been hospitalized within the prior 30 days at any hospital? No Coverage Notice Reviewer: [id number] Chandu Massey Notice Issued Date-Time: 04/25/2019 8:50 Notice Type: Patient Choice Letter Notice Delivered To: Patient Relationship to Patient: Operations Intelligence Superintendent Name: Delivery Method: HAND - Hand Delivered Adilia Days: Prior Verbal Notification: Recipient Understood Notice: Yes Recipient Signature: Yes Med Rec Note Co-signed by Attending: Coverage Notice Comment: Reviewer: [id number] Chandu Massey Notice Issued Date-Time: 04/26/2019 16:20 Notice Type: Patient Choice Letter Notice Delivered To: Patient Relationship to Patient: Operations Intelligence Superintendent Name: Delivery Method: HAND - Hand Delivered Adilia Days: Prior Verbal Notification: Recipient Understood Notice: Yes Recipient Signature: Yes Med Rec Note Co-signed by Attending: Coverage Notice Comment: [facility] Gold DP export: 04/26/19 3:27 Patient Name: ADONIS YEE Page [id number] at 1257 All edits/amendments must be made on the electronic document DICTATION DATE: 04/27/19 125 FAITH HEALER: DM 04/27/19 125 RPT#: [id number] DC DATE: STATUS: ADM IN [facility] [address] [place] [address] END OF REPORT
--- NOTE | 2019-04-27 13:48 | NUR ---
NUTRITION F/U PT TOLERATING REG DIET WITH 100% INTAKE TODAYS MEALS. WILL CONTINUE TO PROVIDE DIET, HONOR FOOD PREFERENCES, MONITOR PO INTAKE. RD FOLLOWING
[2019-04-27] MEDS ORDERED: PERCOCET 10-321 EAC1 PO (14:33)
[2019-04-27] MEDS ORDERED: LISINOPRIL10 MG PO (14:38)
--- NOTE | 2019-04-27 15:22 | MORECARE ---
CASE MANAGEMENT DISCHARGE SUMMARY PATIENT: ADONIS YEE UNIT: [id number] ADM DATE: 04/21/19 AGE: 59 : 60 SEX: F ROOM/BED: D.2216 AUTHOR: JACKY KING PHYSICIAN: REFERRING PHYSICIAN: ANTOINETTE JIMENEZ MD DATE OF SERVICE: 04/27/19 Discharge Plan Patient Name: ADONIS YEE Facility: [facility]:[place] : 1960 Planned Disposition: Home or Self Care Anticipated Discharge Date: Discharge Date: Expected LOS: Initial Reviewer: [email or web address] Initial Review Date: 04/21/2019 Generated: 04/27/19 4:21 pm Comments DCP- Discharge Planning Updated by [email or web address]: Susie Massey on 04/27/19 2:[address] PATIENT WILL BE DISCHARGING HOME TODAY, I HAVE SET HER UP WITH OP OT AND ST AT [facility] I HAVE CALLED [facility] AND SET UP HER FIRST APPOINTMENT FOR ThursdayApr @ 9:45 CONF # [id number] CM TO FOLLOW AND ASSSIT WITH DC PLANNING NEEDED. I HAVE ALSO PROVIDED HER WITH A TYPED LETTER OF ALLTHE NUMBERS AND APPOINTMENTS FOR HER TO REFER TO DCP- Discharge Planning Updated by [id number]: Susie Massey on 04/27/19 11:[address] KARELY WITH [facility] CALLED BACK THIS MORNING AND STATED THAT AT THIS TIME THEY ARE NOT TAKING RUMA. SPOKE WITH PATIENT AND SHE WOULD LIKE TO TRY CARE IV, DR JIMENEZ WANTS HER TO HAVE OT AND SPEECH DCP- Discharge Planning Updated by [id number]: Susie Massey on 04/26/19 3:[address] SPOKE WITH PATIENT ABOUT REHAB & LET HER KNOW THAT SHE IS TOO HIGH FUNCTION FOR INPATIENT REHAB. SHE STATED THAT SHE FEELS OK TO DISHCARGE HOME WITH HOME HEALTH. [facility]URITA WITH [facility]. 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 CM educated patient on the CM role and verbal consent given by patient to complete assessment. Patient is currently living between her sister and her mom where she is independent with her care. At discharge patient would like to go to [facility] before going to her mothers home. ( mom's address is [address]) and feels this is a safe discharge. CM discussed availability of home health, rehab services, and medical equipment. I explained to her about RUMA and the rehab benefits and will have to see if they do a restorative program. LAURITA signed for [facility]. There are 20 steps to her mom's condo. Patient denied known discharge needs at this time. CM will continue to follow and will assist as needed with dc plans/needs. Budget Analyst: Susie Massey DCPIA - Discharge Planning Initial Assessment Updated by [id number]: Susie Massey on 04/25/19 9:59 am * Is the patient Alert and Oriented? Yes * How many steps to enter\exit or inside your home? 20 * PCP [facility] * Pharmacy REHAB * Preadmission Environment Home with Family * ADLs Independent * Equipment None * List name and contact numbers for known caregivers / representatives who currently or will assist patient after discharge: BRITTANIE YEE SISTER [phone] * Verbal permission to speak to the caregivers and representatives has been obtained from the patient. N/A * Community resources currently utilized None * Additional services required to return to the preadmission environment? Yes * Can the patient safely return to the preadmission environment? Yes * Has this patient been hospitalized within the prior 30 days at any hospital? No Coverage Notice Reviewer: [id number] Chandu Massey Notice Issued Date-Time: 04/25/2019 8:50 Notice Type: Patient Choice Letter Notice Delivered To: Patient Relationship to Patient: Cash Applications Clerk Name: Delivery Method: HAND - Hand Delivered Adilia Days: Prior Verbal Notification: Recipient Understood Notice: Yes Recipient Signature: Yes Med Rec Note Co-signed by Attending: Coverage Notice Comment: Reviewer: [id number] Chandu Massey Notice Issued Date-Time: 04/26/2019 16:20 Notice Type: Patient Choice Letter Notice Delivered To: Patient Relationship to Patient: Cash Applications Clerk Name: Delivery Method: HAND - Hand Delivered Adilia Days: Prior Verbal Notification: Recipient Understood Notice: Yes Recipient Signature: Yes Med Rec Note Co-signed by Attending: Coverage Notice Comment: [facility] Last DP export: 04/27/19 11:57 Patient Name: ADONIS YEE Page [id number] at 1522 All edits/amendments must be made on the electronic document DICTATION DATE: 04/27/191520 SUPERVISOR SOLDERING: BOUBACAR 04/27/191520 RPT#: [id number] DC DATE: STATUS: ADM IN [facility] [address] [place] [address] END OF REPORT
--- NOTE | 2019-04-29 15:22 | MORECARE ---
CASE MANAGEMENT DISCHARGE SUMMARY PATIENT: ADONIS YEE UNIT: [id number] ADM DATE: 04/21/19 AGE: 59 : 60 SEX: F ROOM/BED: D.2216 AUTHOR: JACKY KING PHYSICIAN: REFERRING PHYSICIAN: ANTOINETTE JIMENEZ MD DATE OF SERVICE: 04/29/19 Discharge Plan Patient Name: ADONIS YEE Facility: [facility]:[place] : 1960 Planned Disposition: Home or Self Care Anticipated Discharge Date: Discharge Date: 04/27/2019 Expected LOS: 0 Initial Reviewer: [email or web address] Initial Review Date: 04/21/2019 Generated: 04/29/19 4:22 pm Comments DCP- Discharge Planning Updated by [email or web address]: Susie Massey on 04/27/19 2:[address] PATIENT WILL BE DISCHARGING HOME TODAY, I HAVE SET HER UP WITH OP OT AND ST AT [facility] I HAVE CALLED [facility] AND SET UP HER FIRST APPOINTMENT FOR ThursdayApr @ 9:45 CONF # [id number] CM TO FOLLOW AND ASSSIT WITH DC PLANNING NEEDED. I HAVE ALSO PROVIDED HER WITH A TYPED LETTER OF ALLTHE NUMBERS AND APPOINTMENTS FOR HER TO REFER TO DCP- Discharge Planning Updated by [id number]: Susie Massey on 04/27/19 11:[address] KARELY WITH [facility] CALLED BACK THIS MORNING AND STATED THAT AT THIS TIME THEY ARE NOT TAKING RUMA. SPOKE WITH PATIENT AND SHE WOULD LIKE TO TRY CARE IV, DR JIMENEZ WANTS HER TO HAVE OT AND SPEECH DCP- Discharge Planning Updated by [id number]: Susie Massey on 04/26/19 3:[address] SPOKE WITH PATIENT ABOUT REHAB & LET HER KNOW THAT SHE IS TOO HIGH FUNCTION FOR INPATIENT REHAB. SHE STATED THAT SHE FEELS OK TO DISHCARGE HOME WITH HOME HEALTH. LAURITA WITH [facility]. 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 CM educated patient on the CM role and verbal consent given by patient to complete assessment. Patient is currently living between her sister and her mom where she is independent with her care. At discharge patient would like to go to [facility] before going to her mothers home. ( mom's address is [address]) and feels this is a safe discharge. CM discussed availability of home health, rehab services, and medical equipment. I explained to her about RUMA and the rehab benefits and will have to see if they do a restorative program. LAURITA signed for [facility]. There are 20 steps to her mom's condo. Patient denied known discharge needs at this time. CM will continue to follow and will assist as needed with dc plans/needs. Food Service Helper: Susie Massey DCPIA - Discharge Planning Initial Assessment Updated by [email or web address]: Susie Massey on 04/25/19 9:59 am * Is the patient Alert and Oriented? Yes * How many steps to enter\exit or inside your home? 20 * PCP [facility] * Pharmacy REHAB * Preadmission Environment Home with Family * ADLs Independent * Equipment None * List name and contact numbers for known caregivers / representatives who currently or will assist patient after discharge: BRITTANIE YEE SISTER [phone] * Verbal permission to speak to the caregivers and representatives has been obtained from the patient. N/A * Community resources currently utilized None * Additional services required to return to the preadmission environment? Yes * Can the patient safely return to the preadmission environment? Yes * Has this patient been hospitalized within the prior 30 days at any hospital? No Coverage Notice Reviewer: [id number] Chandu Massey Notice Issued Date-Time: 04/25/2019 8:50 Notice Type: Patient Choice Letter Notice Delivered To: Patient Relationship to Patient: Middle School Art Teacher Name: Delivery Method: HAND - Hand Delivered Adilia Days: Prior Verbal Notification: Recipient Understood Notice: Yes Recipient Signature: Yes Med Rec Note Co-signed by Attending: Coverage Notice Comment: Reviewer: [id number] Chandu Massey Notice Issued Date-Time: 04/26/2019 16:20 Notice Type: Patient Choice Letter Notice Delivered To: Patient Relationship to Patient: Middle School Art Teacher Name: Delivery Method: HAND - Hand Delivered Adilia Days: Prior Verbal Notification: Recipient Understood Notice: Yes Recipient Signature: Yes Med Rec Note Co-signed by Attending: Coverage Notice Comment: [facility] Last DP export: 04/27/19 2:22 Patient Name: ADONIS YEE Page [id number] at 1522 All edits/amendments must be made on the electronic document DICTATION DATE: 04/29/191521 REGIONAL OWNER OPERATOR TRUCK DRIVER: BOUBACAR 04/29/19 152 RPT#: [id number] DC DATE:04/27/19 STATUS: DIS IN [facility] [address] [place] [address] END OF REPORT
== END 2019-04-27 16:19 | disposition home or self-care (01) | DRG 25 ==
LOC: D.SDCHOLD 04-21 07:30 → D.MS 04-21 08:26 → D.EDHOLD 04-21 08:26 → D.ICU 04-21 08:26 → D.SDCHOLD 04-21 08:37 → D.ICU 04-21 17:32 → D.MS 04-22 10:13
PROVIDERS: Anesthesiology; Family Medicine; ADMIT Neurological Surgery; ATTEND Neurological Surgery
PROC: [UNRECOGNIZED PROCEDURE] (2019-04-21)
PROC: 00B20ZZ Excision of Dura Mater, Open Approach (ICD-10-PCS; principal; 2019-04-21 11:00)
DX: D32.0 Benign neoplasm of cerebral meninges (principal); G93.6 Cerebral edema; I10 Essential (primary) hypertension; J44.9 Chronic obstructive pulmonary disease, unspecified; F41.9 Anxiety disorder, unspecified

== ENCOUNTER → 2019-04-20 11:41 | Outpatient (CLI) | payer MEDICAID ==
[2019-03-31 22:18] VITALS: BMI 35.0
[~2019-04-20 11:41] MED LIST changes: +BACTRIM 400-801 TAB PO; +CLEOCIN HCL300 MG PO; +LISINOPRIL10 MG PO; +PERCOCET 10-321 EAC1 PO
== END | disposition home or self-care (01) ==
LOC: D.MRI 11:30
PROVIDERS: ATTEND Neurological Surgery
DX: D32.0 Benign neoplasm of cerebral meninges (principal)

== ENCOUNTER 2019-05-14 09:12 | Inpatient (IN) | payer MEDICAID ==
[~2019-05-14] VITALS: Ht 154.9 cm; Wt 88.9 kg
[~2019-05-14 09:12] MED LIST changes: -BACTRIM 400-801 TAB PO; -CLEOCIN HCL300 MG PO
[2019-05-14 09:35] LABS: BASOPHILS 0.3 % (0-2); EOSINOPHILS 4.4 % (0-7); HEMATOCRIT 45.3 % (36.0-48.0); HEMOGLOBIN 14.9 g/dL (12-16); IMMATURE GRANULOCYTES 0.7 % (0-5); LYMPHOCYTES 32.9 % (15-50); MCH 27.2 pg (26.0-34.0); MCHC 32.9 g/dL (31.0-37.0); MCV 82.8 fL (80.0-100.0); NEUTROPHILS 53.7 % (40-80); PLATELET COUNT 295 10x3/uL (130-400); RBC 5.47 10x6/uL (4.00-5.40); RDW 15.3 % (11.5-14.5); WBC 10.9 10x3/uL (4.8-10.8)
[2019-05-14 09:48] LABS: CALC OSMOLALITY 280 mosm/kg (275-300); CALCIUM 8.8 mg/dL (8.5-10.1); CARBON DIOXIDE 20.9 mmol/L (21.0-32.0); CHLORIDE - SERUM 103 mmol/L (98-107); CREATININE - SERUM 1.7 mg/dL (0.6-1.3); POTASSIUM - SERUM 4.2 mmol/L (3.5-5.1); SODIUM 136 mmol/L (136-145); UREA NITROGEN 28 mg/dL (7-18); eGFR NON AFRICAN AMERICAN 33 mL/min (90-120)
[2019-05-14 09:59] LABS: GLUCOSE 149 mg/dL (74-106)
[2019-05-14 10:04] LABS: ALBUMIN 3.6 g/dL (3.4-5.0); ALKALINE PHOSPHATASE 142 U/L (46-116); ALT (SGPT) 37 U/L (10-68); CKMB 1.2 U/L (0.0-3.6); CREATINE KINASE 63 UL (21-215); PROTEIN - SERUM 7.5 g/dL (6.4-8.2); TROPONIN-I < 0.017 ng/mL (0.000-0.060)
[2019-05-14 10:24] LABS: APTT 32.5 SECONDS (22.8-39.4); INR 1.02 (0.85-1.17); PROTIME 12.9 SECONDS (11.6-15.0)
--- NOTE | 2019-05-14 10:41 | NUR ---
PT UP TO RESTROOM AT THIS TIME TO OBTAIN URINE SPECIMEN. STEADY GAIT NOTED
[2019-05-14 11:04] VITALS: BP 132/90
[2019-05-14 11:17] LABS: APPEARANCE CLEAR (CLEAR); BILIRUBIN NEGATIVE (NEGATIVE); COLOR YELLOW (YELLOW); GLUCOSE NEGATIVE (NEGATIVE); KETONE NEGATIVE (NEGATIVE); NITRITE NEGATIVE (NEGATIVE); PROTEIN NEGATIVE (NEGATIVE); SPECIFIC GRAVITY 1.015 (1.005-1.020); UROBILINOGEN NORMAL (NORMAL)
--- NOTE | 2019-05-14 14:02 | NUR ---
REPORT TO FARHAN ON MED 1 USING SBAR.
[2019-05-14] MEDS ORDERED: HYDROCODON-ACE1 EA10 PO (14:40)
[2019-05-14] MEDS ORDERED: BACTRIM 400-801 TAB PO (14:41)
[2019-05-14 15:36] VITALS: BP 173/98; BMI 37.1
--- NOTE | 2019-05-14 16:33 | NUR ---
PATIENT IS HERE FROM THE ER. SHE IS HAVING PAIN IN HER RIGHT BREAST AND HAS A LUMP THERE THAT MAY BE AN ABCESS. SHE IS C/O PAIN IN HER CHEST AND BACK. SHE IS ALERT AND ORIENTED AND DENIES ANY NEEDS RIGHT NOW. PAIN TREATED ORDERED. IV FLUIDS GOING ORDERED. IS AWARE THAT SHE IS HERE AND HER LABS. SHE HAS AN IV IN HER LEFT AC, SHE HAS A HISTORY OF BRAIN SURGERY AND HAS A SCAR ON THE LEFT SIDE OF HER HEAD. SHE HAS TELEMETRY IN PLACE AND HAS A HX OF STENTS.
[2019-05-14 16:44] VITALS: BP 178/93
--- NOTE | 2019-05-14 19:10 | NUR ---
BEDSIDE REPORT RECEIVED FROM DAY SHIFT, PT CARE ASSUMED. INTRODUCED SELF AND WROTE NAME ON BOARD. PT SITTING UP IN BED, WATCHING TV, AAOX4. DENIES ANY NEEDS AT THIS TIME. BED IN LOWEST POSITION, SR X1, CALL LIGHT WITHIN REACH. WILL CONTINUE TO MONITOR.
[2019-05-14 20:00] VITALS: BP 126/65
--- NOTE | 2019-05-14 20:45 | NUR ---
PT C/O RIGHT-SIDED THORACIC PAIN THAT RADIATES TO HER RIGHT SHOULDER AND DOWN HER BACK OF 10, ON A SCALE OF 0-10. PRN MORPHINE AND NIGHT TIME MEDS ADMINISTERED, PER ORDER. DENIES ANY OTHER NEEDS AT THIS TIME. BED IN LOWEST POSITION, SR X1, CALL LIGHT WITHIN REACH. WILL CONTINUE TO MONITOR.
[2019-05-15] VITALS: BP 103/58
[2019-05-15 04:00] VITALS: BP 124/78
[2019-05-15 05:50] LABS: BASOPHILS 0.2 % (0-2); EOSINOPHILS 5.5 % (0-7); IMMATURE GRANULOCYTES 0.5 % (0-5); LYMPHOCYTES 46.7 % (15-50); MCH 26.2 pg (26.0-34.0); MCHC 31.1 g/dL (31.0-37.0); MCV 84.4 fL (80.0-100.0); MONOCYTES 10.9 % (2-11); NEUTROPHILS 36.2 % (40-80); RDW 15.5 % (11.5-14.5)
[2019-05-15 06:06] LABS: HEMOGLOBIN 11.8 g/dL (12-16); PLATELET COUNT 206 10x3/uL (130-400)
[2019-05-15 06:20] LABS: ALBUMIN 2.8 g/dL (3.4-5.0); ALKALINE PHOSPHATASE 105 U/L (46-116); BILIRUBIN - TOTAL 0.41 mg/dL (0.2-1.3); CARBON DIOXIDE 24.8 mmol/L (21.0-32.0); CHLORIDE - SERUM 110 mmol/L (98-107); CKMB 1.4 U/L (0.0-3.6); CREATINE KINASE 52 UL (21-215); GLUCOSE 104 mg/dL (74-106); POTASSIUM - SERUM 4.2 mmol/L (3.5-5.1); PROTEIN - SERUM 5.9 g/dL (6.4-8.2); SODIUM 142 mmol/L (136-145)
[2019-05-15 06:21] LABS: ALT (SGPT) 26 U/L (10-68); CALC OSMOLALITY 284 mosm/kg (275-300); TROPONIN-I < 0.017 ng/mL (0.000-0.060); UREA NITROGEN 18 mg/dL (7-18); eGFR NON AFRICAN AMERICAN 60 mL/min (90-120)
--- NOTE | 2019-05-15 07:43 | NUR ---
PATIENT IS RESTING QUIETLY ON HER BACK IN BED AT THIS TIME.
[2019-05-15 09:00] VITALS: BP 108/42
--- NOTE | 2019-05-15 10:41 | NUR ---
CALLED [facility] AND SHE SAID TO BUMP FLUIDS DOWN TO 75 ML/HR
[2019-05-15 12:00] VITALS: BP 119/68
--- NOTE | 2019-05-15 13:59 | NUR ---
PATIENT IS SITTING UP IN BED. SHE HAS HAD A VISITOR AND DENIES ANY NEEDS AT THIS TIME.
[2019-05-15 18:11] VITALS: BP 111/54
[2019-05-15 20:00] VITALS: BP 124/71
--- NOTE | 2019-05-15 20:28 | NUR ---
HS MEDS GIVEN WITH DIET LEMON LA JOLLA SODA. HS SNACK PROVIDED AT PT REQUEST.
[2019-05-16] VITALS: BP 137/55
--- NOTE | 2019-05-16 00:58 | NUR ---
RESTING WITH EYES CLOSED, RESPERATIONS EVEN, NO S/S DISTRESS NOTED.
[2019-05-16 04:00] VITALS: BP 112/65
--- NOTE | 2019-05-16 04:00 | NUR ---
I have reviewed this patient and I concur with the Shift Assessment completed by the Licensed Practical Nurse today this shift.
[2019-05-16 05:28] LABS: BASOPHILS 0.2 % (0-2); EOSINOPHILS 5.8 % (0-7); HEMATOCRIT 37.1 % (36.0-48.0); HEMOGLOBIN 11.6 g/dL (12-16); IMMATURE GRANULOCYTES 0.3 % (0-5); LYMPHOCYTES 36.5 % (15-50); MCH 26.5 pg (26.0-34.0); MCHC 31.3 g/dL (31.0-37.0); MCV 84.7 fL (80.0-100.0); MEAN PLATELET VOLUME 8.9 fL (7.4-10.4); MONOCYTES 10.3 % (2-11); NEUTROPHILS 46.9 % (40-80); PLATELET COUNT 203 10x3/uL (130-400); RBC 4.38 10x6/uL (4.00-5.40); RDW 15.4 % (11.5-14.5); WBC 6.4 10x3/uL (4.8-10.8)
[2019-05-16 05:58] LABS: ALBUMIN 2.8 g/dL (3.4-5.0); ALKALINE PHOSPHATASE 97 U/L (46-116); ALT (SGPT) 23 U/L (10-68); BILIRUBIN - TOTAL 0.32 mg/dL (0.2-1.3); CALC OSMOLALITY 284 mosm/kg (275-300); CALCIUM 8.3 mg/dL (8.5-10.1); CARBON DIOXIDE 23.7 mmol/L (21.0-32.0); CHLORIDE - SERUM 111 mmol/L (98-107); CREATININE - SERUM 0.8 mg/dL (0.6-1.3); GLUCOSE 89 mg/dL (74-106); POTASSIUM - SERUM 4.1 mmol/L (3.5-5.1); PROTEIN - SERUM 5.9 g/dL (6.4-8.2); SODIUM 143 mmol/L (136-145); UREA NITROGEN 14 mg/dL (7-18); eGFR NON AFRICAN AMERICAN 78 mL/min (90-120)
--- NOTE | 2019-05-16 07:30 | NUR ---
PT SITTING UP IN BED. ALERT AND ORIENTED. PAIN MEDICATION AND ANXIETY MEDICATION RECIEVED PER REQUEST. CRACKERS AND LEMON [place] DRINK RECIEVED UPON REQUEST. ASSESSMENT COMPLETE. DENIES NEEDS OR PAIN AT THIS TIME. BED IN LOWEST POSITION. CALL LIGHT WITHIN REACH. WILL CONTINUE TO MONITOR.
[2019-05-16 11:13] VITALS: BP 150/74
--- NOTE | 2019-05-16 12:34 | NUR ---
I have reviewed this patient and I concur with the Shift Assessment completed by the Licensed Practical Nurse today this shift.
[2019-05-16 14:57] VITALS: BP 151/52
[2019-05-16 15:10] VITALS: Ht 154.9 cm; Wt 88.9 kg
[2019-05-16 17:33] VITALS: BP 188/82
--- NOTE | 2019-05-16 20:12 | NUR ---
BED LOW AND LOCKED PT ALERT AND ORIENTED AND EXPRESSED DESIRE TO GET MEDS AT 2030 I WILL ATTEMPT TO DO SO
[2019-05-16 20:34] VITALS: BP 157/82
[2019-05-17 01:10] VITALS: BP 138/77
--- NOTE | 2019-05-17 01:40 | NUR ---
DCED IV CATH INTACT AND RESTARTED WITH 20 GA TO RT AC
[2019-05-17 05:14] LABS: BASOPHILS 0.2 % (0-2); EOSINOPHILS 4.5 % (0-7); HEMATOCRIT 36.3 % (36.0-48.0); HEMOGLOBIN 11.4 g/dL (12-16); IMMATURE GRANULOCYTES 0.1 % (0-5); LYMPHOCYTES 31.7 % (15-50); MCH 26.6 pg (26.0-34.0); MCHC 31.4 g/dL (31.0-37.0); MCV 84.6 fL (80.0-100.0); MEAN PLATELET VOLUME 8.9 fL (7.4-10.4); NEUTROPHILS 54.5 % (40-80); PLATELET COUNT 216 10x3/uL (130-400); RBC 4.29 10x6/uL (4.00-5.40); RDW 15.4 % (11.5-14.5)
[2019-05-17 05:40] LABS: ALBUMIN 2.7 g/dL (3.4-5.0); ANION GAP 10.9 mmol/L (8-16); BILIRUBIN - TOTAL 0.31 mg/dL (0.2-1.3); CALCIUM 8.7 mg/dL (8.5-10.1); POTASSIUM - SERUM 3.9 mmol/L (3.5-5.1); PROTEIN - SERUM 5.7 g/dL (6.4-8.2)
--- NOTE | 2019-05-17 05:58 | NUR ---
I have reviewed this patient and I concur with the Shift Assessment completed by the Licensed Practical Nurse today this shift.
--- NOTE | 2019-05-17 07:37 | NUR ---
PATIENT IS RESTING ON HER BACK IN BED. SHE DINIES ANY NEEDS AT THIS TIME.
--- NOTE | 2019-05-17 10:57 | NUR ---
PATIENT IS RESTING QUIETLY AT THIS TIME. SHE REPORTED THAT SHE WAS NOT FEELING WELL TODAY, LIGHTS OFF, REPORTS MILD DISCOMFORT AND SOME HEAD PAIN TODAY. STATES THAT THE PAIN IN HER BREAST IS IMPROVED.
[2019-05-17 12:00] VITALS: BP 153/70
[2019-05-17 16:00] VITALS: BP 147/83
[2019-05-17] MEDS ORDERED: CLEOCIN HCL300 MG PO (18:19)
--- NOTE | 2019-05-17 19:18 | NUR ---
AT REST WITH EYES CLOSED BED LOW AND LOCKED CALL LIOGHT IN REACH
[2019-05-17 20:00] VITALS: BP 144/76
[2019-05-18] VITALS: BP 112/56
--- NOTE | 2019-05-18 03:20 | NUR ---
I have reviewed this patient and I concur with the Shift Assessment completed by the Licensed Practical Nurse today this shift.
[2019-05-18 04:00] VITALS: BP 148/63
[2019-05-18 06:54] LABS: BASOPHILS 0.3 % (0-2); EOSINOPHILS 5.1 % (0-7); HEMOGLOBIN 11.6 g/dL (12-16); IMMATURE GRANULOCYTES 0.3 % (0-5); LYMPHOCYTES 32.4 % (15-50); MCH 26.4 pg (26.0-34.0); MCHC 31.4 g/dL (31.0-37.0); MCV 84.3 fL (80.0-100.0); MEAN PLATELET VOLUME 9.3 fL (7.4-10.4); MONOCYTES 9.2 % (2-11); NEUTROPHILS 52.7 % (40-80); PLATELET COUNT 223 10x3/uL (130-400); RBC 4.39 10x6/uL (4.00-5.40); RDW 15.1 % (11.5-14.5); WBC 6.9 10x3/uL (4.8-10.8)
[2019-05-18 07:13] LABS: ALBUMIN 2.8 g/dL (3.4-5.0); ALKALINE PHOSPHATASE 91 U/L (46-116); ALT (SGPT) 18 U/L (10-68); BILIRUBIN - TOTAL 0.45 mg/dL (0.2-1.3); CALC OSMOLALITY 283 mosm/kg (275-300); CALCIUM 8.8 mg/dL (8.5-10.1); CARBON DIOXIDE 24.7 mmol/L (21.0-32.0); CHLORIDE - SERUM 109 mmol/L (98-107); CREATININE - SERUM 0.7 mg/dL (0.6-1.3); GLUCOSE 95 mg/dL (74-106); SODIUM 143 mmol/L (136-145); UREA NITROGEN 10 mg/dL (7-18); eGFR NON AFRICAN AMERICAN > 90 mL/min (90-120)
--- NOTE | 2019-05-18 07:39 | NUR ---
PATIENT HAS NOT HAD A FLU SHOT THIS YEAR, ORDERED.
--- NOTE | 2019-05-18 08:36 | NUR ---
FLUSHOT GIVEN LEFT DELTOID. PATIENT IS GOING TO BE DISCHARGED. LEFT BREAST STILL HAS A 3INCH BY 2 INCH ABCESS. IT HAS GOTTEN A LITTLE BIT SMALLER SINCE TREATMENT STARTED , PATIENT REPORTS.
[2019-05-18 09:55] VITALS: BP 150/86
--- NOTE | 2019-05-18 10:25 | NUR ---
HEAD TO TOE ASSESSMENT COMPLETED. PATIENT IS BEING DISCHARGED. REMOVED IV FROM RIGHT AC WITH CATHETER INTACT. TELEMETRY REMOVED AND RETURNED. ALL DISCHARGE TEACHING COMPLETED AND PAPERS SIGNED. PATIENT IS GOING HOME WITH A FAMILY MEMBER VIA WHEEL CHAIR. ABCESS WAS STILL PALPABLE AND PATIENT IS AWARE OF THE ANTIBIOTICS SHE MUST COMPLETE. SHE HAS REMOVED ALL HER PERSONAL BELONGINGS FROM THE ROOM.
--- NOTE | 2019-05-18 15:50 | MORECARE ---
CASE MANAGEMENT DISCHARGE SUMMARY PATIENT: ADONIS YEE UNIT: [id number] ADM DATE: 05/14/19 AGE: 59 : 60 SEX: F ROOM/BED: D.9356 AUTHOR: CHRISTINE,DOC PHYSICIAN: REFERRING PHYSICIAN: OVI WESTFALL MD DATE OF SERVICE: 05/18/19 Discharge Plan Patient Name: ADONIS YEE Facility: [facility]:[place] : 1960 Planned Disposition: Home Anticipated Discharge Date: 05/18/19 Discharge Date: 05/18/2019 Expected LOS: 4 Initial Reviewer: [email or web address] Initial Review Date: 05/18/2019 Generated: 05/18/19 4:49 pm Comments DCP- Discharge Planning Updated by [email or web address]: Ben Bernard on 05/18/19 2:[address] Patient Name: ADONIS YEE Admission Status: ER Accout number: [id number] Admission Date: 05-14-2019 : 1960 Admission Diagnosis: Attending: OVI WESTFALL Current LOS: 4 Anticipated DC Date: 05-18-2019 Planned Disposition: Home Primary Insurance: MEDICAID [place] Discharge Planning Comments: CM MET WITH PT IN ROOM TO DISCUSS DISCHARGE PLANNING AND NEEDS. PT REPORTS LIVING AT HOME INDEPENDENTLY WITH HER MOTHER. PT HAS NO STEPS OUTSIDE THE HOUSE AND 12 UP TO HER BEDROOM INSIDE THE HOUES. . PT HAS HOME OXYGEN THAT SHE DOES NOT USE FROM [facility]. PT HAS NO OUTSIDE SERVICES ASSISTING IN THE HOME. CM DISCUSSED AVAILABILITY OF HOME HEALTH, REHAB SERVICES AND MEDICAL EQUIPMENT. PT DENIES DISCHARGE NEEDS AND WILL RESUME HER OUTPATIENT PHYSICAL THERAPY WITH [facility] TWICE WEEKLY; PT USES [facility]SP[facility]. PT REPORTS HER MOTHER WILL PICK HER UP FOR DISCHARGE HOME. PECAN CLEANER NURSE NOTIFIED. Practice Consultant: Ben Bernard DCPIA - Discharge Planning Initial Assessment Updated by [id number]: Ben Bernard on 05/18/19 3:42 pm * Is the patient Alert and Oriented? Yes * How many steps to enter\exit or inside your home? 0-O / 12-I * PCP DR. BESS * Pharmacy [facility] * Preadmission Environment Home with Family * ADLs Independent * Equipment Oxygen * Other Equipment HOME OXYGEN, DOES NOT USE [facility] IS PROVIDER * List name and contact numbers for known caregivers / representatives who currently or will assist patient after discharge: BRITTANIE YEE, SISTER, * Verbal permission to speak to the caregivers and representatives has been obtained from the patient. N/A * Community resources currently utilized Other * Please name any agencies selected above. OUTPATIENT PHYSICAL THERAPY AT [facility] 2X PER WEEK; [facility]SP[facility] * Additional services required to return to the preadmission environment? No * Can the patient safely return to the preadmission environment? Yes * Has this patient been hospitalized within the prior 30 days at any hospital? No Patient Name: ADONIS YEE Page [id number] at 1550 All edits/amendments must be made on the electronic document DICTATION DATE: 05/18/191548 BERRY GROWER: BOUBACAR 05/18/191548 RPT#: [id number] DC DATE:05/18/19 STATUS: DIS IN [facility] [address] [place] [address] END OF REPORT
== END 2019-05-18 10:31 | disposition home or self-care (01) | DRG 603 ==
LOC: D.ER 09:12 → D.M2 12:23
PROVIDERS: Family Medicine; ADMIT Internal Medicine Nephrology; ATTEND Internal Medicine Nephrology
DX: L02.213 Cutaneous abscess of chest wall (principal); N17.9 Acute kidney failure, unspecified; J44.1 Chronic obstructive pulmonary disease with (acute) exacerbation; E86.0 Dehydration; R73.9 Hyperglycemia, unspecified; I25.10 Atherosclerotic heart disease of native coronary artery without angina pectoris; I10 Essential (primary) hypertension; F41.9 Anxiety disorder, unspecified; Z87.891 Personal history of nicotine dependence

== ENCOUNTER 2019-07-05 17:37 | Emergency (ER) | payer MEDICAID ==
[~2019-07-05] VITALS: Ht 154.9 cm; Wt 86.4 kg
[~2019-07-05 17:37] MED LIST changes: +BACTRIM 400-801 TAB PO; +CLEOCIN HCL300 MG PO
[2019-07-05 18:04] VITALS: Ht 154.9 cm; Wt 86.4 kg
[2019-07-05 20:20] VITALS: BP 208/118
== END 2019-07-05 20:20 | disposition home or self-care (01) ==
LOC: D.ER 17:37
DX: R51 Headache (principal); Z76.5 Malingerer [conscious simulation]; I10 Essential (primary) hypertension; I25.10 Atherosclerotic heart disease of native coronary artery without angina pectoris; J44.9 Chronic obstructive pulmonary disease, unspecified; K21.9 Gastro-esophageal reflux disease without esophagitis; Z72.0 Tobacco use

== ENCOUNTER 2019-11-06 15:17 | Emergency (ER) | payer MEDICAID ==
[2019-11-06 15:23] VITALS: Ht 154.9 cm
[2019-11-06 15:54] LABS: HEMATOCRIT 47.6 % (36.0-48.0); HEMOGLOBIN 15.1 g/dL (12-16); LYMPHOCYTES 26.1 % (15-50); MCH 25.8 pg (26.0-34.0); MCHC 31.7 g/dL (31.0-37.0); MCV 81.4 fL (80.0-100.0); MEAN PLATELET VOLUME 9.3 fL (7.4-10.4); NEUTROPHILS 64.7 % (40-80); PLATELET COUNT 311 10x3/uL (130-400); RBC 5.85 10x6/uL (4.00-5.40); RDW 15.2 % (11.5-14.5); WBC 9.1 10x3/uL (4.8-10.8)
[2019-11-06 16:05] LABS: CALC OSMOLALITY 279 mosm/kg (275-300); CALCIUM 9.6 mg/dL (8.5-10.1); CARBON DIOXIDE 22.8 mmol/L (21.0-32.0); CHLORIDE - SERUM 106 mmol/L (98-107); CREATININE - SERUM 0.9 mg/dL (0.6-1.3); GLUCOSE 102 mg/dL (74-106); POTASSIUM - SERUM 4.7 mmol/L (3.5-5.1); SODIUM 140 mmol/L (136-145); UREA NITROGEN 16 mg/dL (7-18); eGFR NON AFRICAN AMERICAN 68 mL/min (90-120)
[2019-11-06 16:20] LABS: ALKALINE PHOSPHATASE 133 U/L (30-120); ALT (SGPT) 25 U/L (10-68); BILIRUBIN - TOTAL 0.37 mg/dL (0.2-1.3); CREATINE KINASE 78 UL (21-215); MAGNESIUM - SERUM 2.1 mg/dL (1.8-2.4); PRO BNP 135 pg/mL (0-125); PROTEIN - SERUM 7.6 g/dL (6.4-8.2); TROPONIN-I < 0.017 ng/mL (0.000-0.060)
[2019-11-06 17:17] LABS: BILIRUBIN NEGATIVE (NEGATIVE); GLUCOSE NEGATIVE (NEGATIVE); KETONE NEGATIVE (NEGATIVE); NITRITE NEGATIVE (NEGATIVE); RED CELLS - URINE 0-5 /hpf (0-5); UROBILINOGEN NORMAL (NORMAL); WHITE CELLS - URINE RARE /hpf (NEGATIVE)
[2019-11-06 17:18] LABS: BACTERIA FEW /hpf (NEGATIVE); EPITHELIAL CELLS 0-5 /hpf (0-5)
[2019-11-06 18:11] VITALS: BP 154/92
== END 2019-11-06 18:12 | disposition home or self-care (01) ==
LOC: D.ER 15:17
PROVIDERS: Family Medicine
DX: R52 Pain, unspecified (principal); F43.21 Adjustment disorder with depressed mood; I10 Essential (primary) hypertension; J44.9 Chronic obstructive pulmonary disease, unspecified; K21.9 Gastro-esophageal reflux disease without esophagitis; R07.9 Chest pain, unspecified

== ENCOUNTER 2020-03-15 13:32 | Emergency (ER) | payer MEDICAID ==
[~2020-03-15] VITALS: Ht 154.9 cm; Wt 85.0 kg
[2020-03-15 14:05] VITALS: Ht 154.9 cm; Wt 85.0 kg
[2020-03-15] MEDS ORDERED: TYLENOL W/CODEI1 TAB PO (16:32)
[2020-03-15] MEDS ORDERED: BACLOFEN20 M1 PO (16:32)
[2020-03-15 17:39] VITALS: BP 158/95
== END 2020-03-15 17:41 | disposition home or self-care (01) ==
LOC: D.ER 13:32
DX: S20.219A Contusion of unspecified front wall of thorax, initial encounter (principal); R07.89 Other chest pain; W19.XXXA Unspecified fall, initial encounter; Y93.9 Activity, unspecified; Y92.9 Unspecified place or not applicable; I10 Essential (primary) hypertension; J44.9 Chronic obstructive pulmonary disease, unspecified; K21.9 Gastro-esophageal reflux disease without esophagitis; Z72.0 Tobacco use